=== PATIENT | female | born 1960 | race Caucasian/White ===

== ENCOUNTER → 2016-11-28 | Outpatient (CLI) | payer OTHER ==
--- NOTE | 2016-11-28 14:50 | EKG REPORT ---
SEVERITY:- NORMAL ECG - SINUS RHYTHM : Confirmed by: Alva Good 28-Nov-2016 14:49:42
== END ==
LOC: CCC 11:13
DX: R06.02 Shortness of breath (principal); R06.00 Dyspnea, unspecified
CPT/HCPCS: 93005; 93010

== ENCOUNTER → 2016-11-28 | Outpatient (CLI) | payer OTHER | LOC: RAD 11:42 | DX: R06.02 Shortness of breath (principal); R06.00 Dyspnea, unspecified | CPT/HCPCS: 71020 ==

== ENCOUNTER 2017-02-24 13:13 | Emergency (ER) | payer OTHER ==
--- NOTE | 2017-02-24 13:19 | ER Document Report ---
ED Medical Screen (RME) - General Stated Complaint: TINGLING/NUMBNESS LEFT SIDE Notes: This 56-year-old female patient comes emergency room complaining of left-sided weakness with visual disturbance. She reports the symptoms were present when she woke up this morning about 7 AM. It is now over 6 hours since onset of symptoms. I have greeted and performed a rapid initial assessment of this patient. A comprehensive ED assessment and evaluation of the patient, analysis of test results and completion of the medical decision making process will be conducted by additional ED providers. TRAVEL OUTSIDE OF THE [place] IN LAST 30 DAYS: No - Related Data Allergies/Adverse Reactions: Penicillins Allergy (Severe, Verified 12/26/15 22:11) Anaphylactic shock sulfamethoxazole [From Septra] Allergy (Severe, Verified 12/26/15 22:11) Diarrhea trimethoprim [From Septra] Allergy (Severe, Verified 12/26/15 22:11) Diarrhea doxycycline [Doxycycline] Allergy (Intermediate, Verified 12/26/15 22:11) Generalized Itching levofloxacin [From Levaquin] Allergy (Intermediate, Verified 12/26/15 22:11) N&V Past Medical History - Past Medical History Cardiac Medical History: Reports: Hx Hypertension Neurological Medical History: Reports: Hx Seizures Endocrine Medical History: Reports: Hx Diabetes Mellitus Type 2 GI Medical History: Reports: Hx Gastroesophageal Reflux Disease Musculoskeltal Medical History: Reports Hx Arthritis - Lt knee Psychiatric Medical History: Reports: Hx Anxiety, Hx Attention Deficit Hyperactivity Disorder, Hx Depression Past Surgical History: Reports: Hx Section, Hx Inguinal Hernia, Hx Neurologic Surgery - Vagal nerve stimulator, Hx Tubal Ligation - Immunizations Immunizations up to date: No Hx Diphtheria, Pertussis, Tetanus Vaccination: No
[2017-02-24] MEDS ORDERED: CARISOPRODOL 350 MG TABLET PO ONE (14:40)
--- NOTE | 2017-02-24 14:41 | ER Document Report ---
ED Neuro Symptoms/Deficit - General Mode of Arrival: Ambulatory Information source: Patient TRAVEL OUTSIDE OF THE [place] IN LAST 30 DAYS: No - HPI Patient complains to provider of: Other - see above Onset: This morning Awoke with symptoms: No Similar symptoms previously: No <AJITH SOARES - Last Filed: 02/24/17 15:39> <KIMBERLYHAKEEM CHELLY - Last Filed: 02/24/17 22:16> - General Chief Complaint: Numbness of Face Stated Complaint: TINGLING/NUMBNESS LEFT SIDE Notes: Patient is a 56-year-old female that presents to the emergency department today with complaints of left-sided tingling, numbness, and aching. She states her above-mentioned symptoms began around 1930 this morning. Patient states that the tingling sensation is felt on the left side of her face and shoulder, the aching is in her left arm and hand, and her left leg and foot feel numb. 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 Patient states after her symptoms began she felt mildly lightheaded and anxious. (AJITH SOARES) - Related Data Allergies/Adverse Reactions: Penicillins Allergy (Severe, Verified 12/26/15 22:11) Anaphylactic shock sulfamethoxazole [From Septra] Allergy (Severe, Verified 12/26/15 22:11) Diarrhea trimethoprim [From Septra] Allergy (Severe, Verified 12/26/15 22:11) Diarrhea doxycycline [Doxycycline] Allergy (Intermediate, Verified 12/26/15 22:11) Generalized Itching levofloxacin [From Levaquin] Allergy (Intermediate, Verified 12/26/15 22:11) N&V Past Medical History - General Information source: Patient, [facility] Records - Social History Smoking Status: Never Smoker Cigarette use (# per day): No Frequency of alcohol use: None Drug Abuse: None Lives with: Spouse/Significant other Family History: Arthritis, CAD, CVA, DM, Hyperlipidemia, Hypertension, Malignancy, Thyroid Disfunction Patient has suicidal ideation: No Patient has homicidal ideation: No - Past Medical History Cardiac Medical History: Reports: Hx Hypertension Neurological Medical History: Reports: Hx Seizures Endocrine Medical History: Reports: Hx Diabetes Mellitus Type 2 GI Medical History: Reports: Hx Gastroesophageal Reflux Disease Musculoskeltal Medical History: Reports Hx Arthritis - Lt knee Psychiatric Medical History: Reports: Hx Anxiety, Hx Attention Deficit Hyperactivity Disorder, Hx Depression Past Surgical History: Reports: Hx Abdominal Surgery - HERNIA, Hx Section, Hx Inguinal Hernia, Hx Neurologic Surgery - Vagal nerve stimulator, Hx Tubal Ligation - Immunizations Immunizations up to date: No Hx Diphtheria, Pertussis, Tetanus Vaccination: No <AJITH SOARES - Last Filed: 02/24/17 15:39> Review of Systems - Review of Systems Constitutional: No symptoms reported EENT: No symptoms reported Cardiovascular: See HPI, Lightheaded Respiratory: No symptoms reported Gastrointestinal: No symptoms reported Genitourinary: No symptoms reported Female Genitourinary: No symptoms reported Musculoskeletal: See HPI, Back pain - upper back Skin: No symptoms reported Hematologic/Lymphatic: No symptoms reported Neurological/Psychological: See HPI, Other - Left sided tingling, numbness, and aching -: Yes All other systems reviewed and negative <AJITH SOARES - Last Filed: 02/24/17 15:39> Physical Exam <AJITH SOARES - Last Filed: 02/24/17 15:39> <HAKEEM HARRIS - Last Filed: 02/24/17 22:16> - Vital signs Vitals: Temp Pulse Resp BP Pulse Ox 98.3 F 77 20 185/93 H 99 02/24/17 13:17 02/24/17 13:17 02/24/17 13:17 02/24/17 13:17 02/24/17 13:17 - Notes Notes: Physical Exam: General: Alert, appears well. HEENT: Normocephalic. Atraumatic. PERRL. Extraocular movements intact. Oropharynx clear. Neck: Supple. Non-tender. Respiratory: No respiratory distress. Clear and equal breath sounds bilaterally. Cardiovascular: Regular rate and rhythm. Abdominal: Normal Inspection. Non-tender. No distension. Normal Bowel Sounds. Back: No deformity or step off. Tenderness with palpation over the left medial scapula. Left axilla tenderness with palpation which reproduces pain down the left arm. Extremities: Moves all four extremities. Upper extremities: Normal inspection. Normal ROM. Normal temperature. Full strength Lower extremities: Non-tender. No edema. Normal color. Normal ROM. Normal temperature. Full strength. Pain with movement of LLE. Neurological: Cranial nerves II-XII grossly intact bilaterally. Strength 5/5 throughout. Sensation intact to light touch. Normal cognition. AAOx4. Normal speech. Psychological: Normal affect. Normal Mood. Skin: Warm. Dry. Normal color. (AJITH SOARES) Course <AJITH SOARES - Last Filed: 02/24/17 15:39> - Laboratory Result Diagrams: 02/24/17 15:56 02/24/17 15:56 - Diagnostic Test Radiology reviewed: Reports reviewed - EKG Interpretation by Hi EKG shows normal: Sinus rhythm Rate: Normal Rhythm: NSR <HAKEEM HARRIS - Last Filed: 02/24/17 22:16> - Re-evaluation Re-evalutation: 02/24/17 17:55 Patient appears well. Head CT within normal limits. Blood work within normal limits. Palpation of the patient's ankle and upper back exacerbate her arm pain and symptoms. Feels better after soma and pain medication. Will be discharged home with pain medication and is to follow-up with her doctor. Patient is completely neurovascularly intact. Return if any worsening or concerning symptoms. Agrees plan. (HAKEEM HARRIS) - Vital Signs Vital signs: Temp Pulse Resp BP Pulse Ox 98.3 F 76 17 126/86 H 95 02/24/17 13:17 02/24/17 16:16 02/24/17 19:28 02/24/17 17:31 02/24/17 17:31 - Laboratory Laboratory results interpreted by me: 02/24/17 15:56 Calcium 10.5 H Discharge <AJITH SOARES - Last Filed: 02/24/17 15:39> <HAKEEM HARRIS - Last Filed: 02/24/17 22:16> - Discharge Clinical Impression: Peripheral nerve entrapment syndrome Injury of upper back Qualifiers: Encounter type: initial encounter Qualified Code(s): S29.9XXA - Unspecified injury of thorax, initial encounter Condition: Stable Disposition: HOME, SELF-CARE Instructions: Upper Back Strain ([facility]), Carpal Tunnel Syndrome ([facility]) Prescriptions: Oxycodone HCl/Acetaminophen [Percocet 5-325 mg Tablet] 1 tab PO Q4H PRN #20 tablet PRN Reason: Referrals: [facility] [Primary Care Provider] - Follow up as needed Scribe Attestation: 02/24/17 22:16 I personally performed the services described in the documentation, reviewed and edited the documentation which was dictated to the scribe in my presence, and it accurately records my words and actions. (HAKEEM HARRIS) Scribe Documentation - Scribe Written by Scribe:: Malachi Tanner, 02/24/2017 1505 acting as scribe for :: Cherrie <AJITH SOARES - Last Filed: 02/24/17 15:39>
[2017-02-24 15:54] LABS: APPEARANCE,URINE CLEAR; BILIRUBIN,URINE NEGATIVE (NEGATIVE); GLUCOSE, URINE NEGATIVE (NEGATIVE); KETONES,URINE NEGATIVE (NEGATIVE); LEUKOCYTE ESTERASE,URINE NEGATIVE (NEGATIVE); NITRITE,URINE NEGATIVE (NEGATIVE); PROTEIN,URINE NEGATIVE (NEGATIVE); URINE SPECIFIC GRAVITY 1.005; UROBILINOGEN,URINE NEGATIVE mg/dL (<2.0)
[2017-02-24 16:10] LABS: ABSOLUTE BASOPHILS # (AUTO) 0.1 10^3/uL (0.0-0.2); ABSOLUTE EOSINOPHILS # (AUTO) 0.2 10^3/uL (0.0-0.6); ABSOLUTE LYMPHOCYTES (AUTO) 2.8 10^3/uL (0.5-4.7); ABSOLUTE MONOCYTES (AUTO) 0.9 10^3/uL (0.1-1.4); ABSOLUTE NEUT (AUTO) 5.9 10^3/uL (1.7-8.2); BASOPHILS % (AUTO) 0.7 % (0-2); HEMATOCRIT 42.6 % (36.0-47.0); HEMOGLOBIN 14.2 g/dL (12.0-15.5); LYMPHOCYTES % (AUTO) 28.7 % (13-45); MEAN CORPUSCULAR HEMOGLOBIN 29.6 pg (27.0-33.4); MEAN CORPUSCULAR HGB CONC 33.4 g/dL (32.0-36.0); MEAN CORPUSCULAR VOLUME 89 fl (80-97); MONOCYTES % (AUTO) 9.1 % (3-13); RED BLOOD COUNT 4.81 10^6/uL (3.72-5.28); RED CELL DISTRIBUTION WIDTH 13.4 % (11.5-14.0); SEGMENTED NEUTROPHILS % (AUTO) 59.5 % (42-78); WHITE BLOOD COUNT 9.9 10^3/uL (4.0-10.5)
[2017-02-24 16:31] LABS: ALANINE AMINOTRANSFERASE 37 U/L (9-52); ALBUMIN 4.8 g/dL (3.5-5.0); ALKALINE PHOSPHATASE 70 U/L (38-126); ANION GAP 15 (5-19); ASPARTATE AMINO TRANSFERASE 20 U/L (14-36); BILIRUBIN,DIRECT 0.1 mg/dL (0.0-0.4); BILIRUBIN,TOTAL 0.3 mg/dL (0.2-1.3); BLOOD UREA NITROGEN 10 mg/dL (7-20); CALCIUM 10.5 mg/dL (8.4-10.2); CARBON DIOXIDE 24 mmol/L (22-30); CHLORIDE 103 mmol/L (98-107); CREATINE KINASE 122 U/L (30-135); CREATININE RESULT 0.61 mg/dL (0.52-1.25); GLUCOSE 99 mg/dL (75-110); POTASSIUM 4.7 mmol/L (3.6-5.0); SODIUM 142.4 mmol/L (137-145); TOTAL PROTEIN 7.8 g/dL (6.3-8.2)
[2017-02-24] MEDS ORDERED: OXYCODONE-ACETAMINOPHEN 5-325 MG TABLET PO ONE (16:32)
[2017-02-24 16:43] LABS: CREATINE KINASE MB 0.91 ng/mL (<4.55)
[2017-02-24 16:47] LABS: TROPONIN I < 0.012 ng/mL
--- NOTE | 2017-02-24 17:24 | EKG REPORT ---
SEVERITY:- ABNORMAL ECG - SINUS RHYTHM PROBABLE LVH WITH SECONDARY REPOL ABNRM : Confirmed by: Zane Rodriguez MD 24-Feb-2017 17:23:27
[2017-02-24 18:57] VITALS: BP 126/86
== END 2017-02-24 19:53 | disposition home or self-care (01) ==
LOC: ER 13:13
DX: G58.8 Other specified mononeuropathies (principal); S29.9XXA Unspecified injury of thorax, initial encounter; R20.0 Anesthesia of skin; X58.XXXA Exposure to other specified factors, initial encounter; E11.9 Type 2 diabetes mellitus without complications; I10 Essential (primary) hypertension; K21.9 Gastro-esophageal reflux disease without esophagitis; Z88.0 Allergy status to penicillin; Z88.3 Allergy status to other anti-infective agents; Z98.51 Tubal ligation status
CPT/HCPCS: 93005; 99284; 36415; 82553; 82550; 84443; 85025; 80053; 81001; 84484; 70450; 93010; J3490

== ENCOUNTER → 2017-03-11 | Outpatient (CLI) | payer OTHER ==
[2017-03-11 10:09] LABS: CHOLESTEROL 206.11 mg/dL (0-200); Direct HDL 49 mg/dL (>40); TRIGLYCERIDES 167 mg/dL (<150)
[2017-03-11 10:20] LABS: DIRECT LDL 133 mg/dL (<100)
[2017-03-11 10:38] LABS: VLDL CHOLESTEROL 33.4 mg/dL (10-31)
== END ==
LOC: CCC 08:57
DX: Z00.00 Encounter for general adult medical examination without abnormal findings (principal); E11.9 Type 2 diabetes mellitus without complications; I10 Essential (primary) hypertension
CPT/HCPCS: 36415; 80061; 83036

== ENCOUNTER 2017-06-15 10:21 | Emergency (ER) | payer OTHER ==
--- NOTE | 2017-06-15 10:59 | ER Document Report ---
ED Medical Screen (RME) - General Chief Complaint: Chest Pain Stated Complaint: ABDOMINAL PAIN Time Seen by Provider: 06/15/17 10:46 Notes: Patient states she had approximately 3 days of epigastric pain that radiates to her chest. It does make her feel short of breath. She states for the last 3 months she has had trouble with excessive gas and belching and has been being [facility] for [facility]. She states she has had vomiting and nausea the last 3 days as well. TRAVEL OUTSIDE OF THE [place] IN LAST 30 DAYS: No - Related Data Allergies/Adverse Reactions: Penicillins Allergy (Severe, Verified 06/15/17 10:32) Anaphylactic shock sulfamethoxazole [From Septra] Allergy (Severe, Verified 06/15/17 10:32) Diarrhea trimethoprim [From Septra] Allergy (Severe, Verified 06/15/17 10:32) Diarrhea doxycycline [Doxycycline] Allergy (Intermediate, Verified 06/15/17 10:32) Generalized Itching levofloxacin [From Levaquin] Allergy (Intermediate, Verified 06/15/17 10:32) N&V Past Medical History - Social History Chew tobacco use (# tins/day): No Frequency of alcohol use: None Drug Abuse: None - Past Medical History Cardiac Medical History: Reports: Hx Hypertension Neurological Medical History: Reports: Hx Seizures Endocrine Medical History: Reports: Hx Diabetes Mellitus Type 2 Renal/ Medical History: Denies: Hx Peritoneal Dialysis GI Medical History: Reports: Hx Gastroesophageal Reflux Disease Musculoskeltal Medical History: Reports Hx Arthritis - Lt knee Psychiatric Medical History: Reports: Hx Anxiety, Hx Attention Deficit Hyperactivity Disorder, Hx Depression Past Surgical History: Reports: Hx Abdominal Surgery - HERNIA, Hx Section, Hx Inguinal Hernia, Hx Neurologic Surgery - Vagal nerve stimulator, Hx Tubal Ligation - Immunizations Immunizations up to date: No Hx Diphtheria, Pertussis, Tetanus Vaccination: No Physical Exam - Vital signs Vitals: Temp Pulse Resp BP Pulse Ox 98.5 F 90 16 141/88 H 96 06/15/17 10:32 06/15/17 10:32 06/15/17 10:32 06/15/17 10:32 06/15/17 10:32 Course - Vital Signs Vital signs: Temp Pulse Resp BP Pulse Ox 98.5 F 90 16 141/88 H 96 06/15/17 10:32 06/15/17 10:32 06/15/17 10:32 06/15/17 10:32 06/15/17 10:32
[2017-06-15] MEDS ORDERED: MAG HYDROX/AL HYDROX/SIMETH SUSP 30 ML UDCUP PO ONE (11:08)
[2017-06-15] MEDS ORDERED: LIDOCAINE 2% VISCOUS SOLN 20 ML UDCUP PO ONE (11:08)
[2017-06-15] MEDS ORDERED: METOCLOPRAMIDE HCL ORAL SOLN 10 MG/10 ML UDCUP PO ONE (11:08)
[2017-06-15 11:17] LABS: ABSOLUTE EOSINOPHILS # (AUTO) 0.1 10^3/uL (0.0-0.6); ABSOLUTE LYMPHOCYTES (AUTO) 2.6 10^3/uL (0.5-4.7); ABSOLUTE MONOCYTES (AUTO) 0.7 10^3/uL (0.1-1.4); ABSOLUTE NEUT (AUTO) 7.6 10^3/uL (1.7-8.2); BASOPHILS % (AUTO) 0.4 % (0-2); EOSINOPHILS % (AUTO) 0.9 % (0-6); HEMATOCRIT 44.3 % (36.0-47.0); HEMOGLOBIN 15.1 g/dL (12.0-15.5); LYMPHOCYTES % (AUTO) 23.7 % (13-45); MEAN CORPUSCULAR HEMOGLOBIN 30.6 pg (27.0-33.4); MEAN CORPUSCULAR HGB CONC 34.2 g/dL (32.0-36.0); MEAN CORPUSCULAR VOLUME 89 fl (80-97); MONOCYTES % (AUTO) 6.7 % (3-13); RED BLOOD COUNT 4.95 10^6/uL (3.72-5.28); SEGMENTED NEUTROPHILS % (AUTO) 68.3 % (42-78); WHITE BLOOD COUNT 11.1 10^3/uL (4.0-10.5)
[2017-06-15 11:22] LABS: APPEARANCE,URINE CLEAR; BILIRUBIN,URINE NEGATIVE (NEGATIVE); GLUCOSE, URINE NEGATIVE (NEGATIVE); KETONES,URINE NEGATIVE (NEGATIVE); LEUKOCYTE ESTERASE,URINE NEGATIVE (NEGATIVE); NITRITE,URINE NEGATIVE (NEGATIVE); PROTEIN,URINE NEGATIVE (NEGATIVE); URINE SPECIFIC GRAVITY 1.014; UROBILINOGEN,URINE NEGATIVE mg/dL (<2.0)
[2017-06-15 11:30] LABS: ALANINE AMINOTRANSFERASE 38 U/L (9-52); ALBUMIN 5.2 g/dL (3.5-5.0); ALKALINE PHOSPHATASE 75 U/L (38-126); ANION GAP 17 (5-19); ASPARTATE AMINO TRANSFERASE 20 U/L (14-36); BILIRUBIN,DIRECT 0.3 mg/dL (0.0-0.4); BILIRUBIN,TOTAL 0.5 mg/dL (0.2-1.3); BLOOD UREA NITROGEN 7 mg/dL (7-20); CALCIUM 10.3 mg/dL (8.4-10.2); CARBON DIOXIDE 22 mmol/L (22-30); CHLORIDE 99 mmol/L (98-107); GLUCOSE 153 mg/dL (75-110); LIPASE 65.1 U/L (23-300); POTASSIUM 4.9 mmol/L (3.6-5.0); SODIUM 138.3 mmol/L (137-145); TOTAL PROTEIN 8.6 g/dL (6.3-8.2)
[2017-06-15] MEDS ORDERED: LORAZEPAM INJ 2 MG/1 ML VIAL IV ONE (11:42)
[2017-06-15] MEDS ORDERED: FAMOTIDINE INJ/PF 20 MG/2 ML SDV IV ONE (11:42)
[2017-06-15] MEDS ORDERED: ONDANSETRON HCL INJ/PF 4 MG/2 ML SDV IV ONE (11:42)
[2017-06-15] MEDS ORDERED: NORMAL SALINE 1000 ML 1,000 ML IV ONE (11:42)
--- NOTE | 2017-06-15 11:43 | ER Document Report ---
ED General - General Chief Complaint: Chest Pain Stated Complaint: CHEST PAIN Time Seen by Provider: 06/15/17 10:46 Mode of Arrival: Ambulatory Information source: Patient Notes: Patient is a 57-year-old female who presents to the ER today for epigastric pain radiating up into her chest, causing it hard to eat or drink anything. She admits to nausea and "dry heaving." She admits that for the past couple of months the [facility] has been trying to figure out why she has been having the same type of pain, she cannot get an endoscopy because she does not have insurance and cannot "get anyone to do it in the hospital." She only takes Nexium for acid reflux. They have not tried her on any other medications. she admits to some shortness of breath and 4 episodes of diarrhea yesterday. She denies that the pain radiates anywhere else or go to the back. She denies any history of heart attack or stroke. She admits to history of anxiety. TRAVEL OUTSIDE OF THE [place] IN LAST 30 DAYS: No - Related Data Allergies/Adverse Reactions: Penicillins Allergy (Severe, Verified 06/15/17 10:32) Anaphylactic shock sulfamethoxazole [From Septra] Allergy (Severe, Verified 06/15/17 10:32) Diarrhea trimethoprim [From Septra] Allergy (Severe, Verified 06/15/17 10:32) Diarrhea doxycycline [Doxycycline] Allergy (Intermediate, Verified 06/15/17 10:32) Generalized Itching levofloxacin [From Levaquin] Allergy (Intermediate, Verified 06/15/17 10:32) N&V Past Medical History - General Information source: Patient - Social History Smoking Status: Never Smoker Chew tobacco use (# tins/day): No Frequency of alcohol use: None Drug Abuse: None Family History: Arthritis, CAD, CVA, DM, Hyperlipidemia, Hypertension, Malignancy, Thyroid Disfunction - Past Medical History Cardiac Medical History: Reports: Hx Hypertension Neurological Medical History: Reports: Hx Seizures Endocrine Medical History: Reports: Hx Diabetes Mellitus Type 2 Renal/ Medical History: Denies: Hx Peritoneal Dialysis GI Medical History: Reports: Hx Gastroesophageal Reflux Disease Musculoskeltal Medical History: Reports Hx Arthritis - Lt knee Psychiatric Medical History: Reports: Hx Anxiety, Hx Attention Deficit Hyperactivity Disorder, Hx Depression Past Surgical History: Reports: Hx Abdominal Surgery - HERNIA, Hx Section, Hx Inguinal Hernia, Hx Neurologic Surgery - Vagal nerve stimulator, Hx Tubal Ligation - Immunizations Immunizations up to date: No Hx Diphtheria, Pertussis, Tetanus Vaccination: No Review of Systems - Review of Systems Constitutional: No symptoms reported EENT: No symptoms reported Cardiovascular: No symptoms reported Respiratory: No symptoms reported Gastrointestinal: See HPI Genitourinary: No symptoms reported Female Genitourinary: No symptoms reported Musculoskeletal: No symptoms reported Skin: No symptoms reported Hematologic/Lymphatic: No symptoms reported Neurological/Psychological: See HPI Physical Exam - Vital signs Vitals: Temp Pulse Resp BP Pulse Ox 98.5 F 90 16 141/88 H 96 06/15/17 10:32 06/15/17 10:32 06/15/17 10:32 06/15/17 10:32 06/15/17 10:32 - Notes Notes: PHYSICAL EXAMINATION: GENERAL: Anxious appearing, but in no acute distress. HEAD: Atraumatic, normocephalic. EYES: Pupils equal round and reactive to light, extraocular movements intact, sclera anicteric, conjunctiva are normal. ENT: ear canals without erythema or foreign body, TMs pearly vargas with good bony landmarks, nares patent, oropharynx clear without exudates. Moist mucous membranes. NECK: Normal range of motion, supple without lymphadenopathy LUNGS: CTAB and equal. No wheezes rales or rhonchi. HEART: Regular rate and rhythm without murmurs ABDOMEN: Soft, moderate epigastric, mild right upper quadrant and left upper quadrant tenderness. No guarding, no rebound BACK: no vertebral tenderness, normal ROM GI/: no CVA tenderness EXTREMITIES: Normal range of motion, no pitting edema. No cyanosis. NEUROLOGICAL: Cranial nerves grossly intact. Normal sensory/motor exams. PSYCH: Anxious, tearful SKIN: Warm, Dry, normal turgor, no rashes or lesions noted Course - Re-evaluation Re-evalutation: 06/15/17 14:08 Patient's labs are unremarkable today, right upper quadrant ultrasound revealed gallstones but no cholecystitis, patient was very anxious and spit up GI cocktail before even attempting to follow it I would not try it again. I did get her to agree to Carafate after I gave her 1mg of ativan to calm her down. sister states that she has a history of being "very wound up." Troponin is negative today. EKG reveals normal sinus rhythm with a rate of 85 bpm no evidence of ischemia. - Vital Signs Vital signs: Temp Pulse Resp BP Pulse Ox 98.5 F 90 16 141/88 H 96 06/15/17 10:32 06/15/17 10:32 06/15/17 10:32 06/15/17 10:32 06/15/17 10:32 - Laboratory Result Diagrams: 06/15/17 10:55 06/15/17 10:55 Laboratory results interpreted by me: 06/15/17 06/15/17 10:55 10:55 WBC 11.1 H Glucose 153 H Calcium 10.3 H Total Protein 8.6 H Albumin 5.2 H Discharge - Discharge Clinical Impression: Epigastric abdominal pain, Anxiety Condition: Stable Disposition: HOME, SELF-CARE Instructions: Reflux Disease (GERD) ([facility]), Prilosec (Acid Pump Inhibitor) ([facility]) Additional Instructions: Return immediately for any new or worsening symptoms. Follow up with primary care provider, call tomorrow to make followup appointment. Prescriptions: Omeprazole Magnesium [Prilosec Otc] 20 mg PO BID #40 tablet. Sucralfate [Carafate 1 gm Tablet] 1 gm PO ACHS #40 tablet
--- NOTE | 2017-06-15 13:07 | RADIOLOGY REPORT (SQ) ---
EXAM DESCRIPTION: CHEST SINGLE VIEW COMPLETED DATE/TIME: 06/15/2017 12:48 pm REASON FOR STUDY: epigastric pain, feeling something stuck in throat COMPARISON: 11/28/2016 EXAM PARAMETERS: NUMBER OF VIEWS: One view. TECHNIQUE: Single frontal radiographic view of the chest acquired. RADIATION DOSE: NA LIMITATIONS: None. FINDINGS: LUNGS AND PLEURA: No opacities, masses or pneumothorax. No pleural effusion. MEDIASTINUM AND HILAR STRUCTURES: No masses. Contour normal. HEART AND VASCULAR STRUCTURES: Heart normal in size. Normal vasculature. BONES: No acute findings. HARDWARE: Vagal nerve stimulator projected over the left upper chest. OTHER: No other significant finding. IMPRESSION: NO ACUTE RADIOGRAPHIC FINDING IN THE CHEST. TECHNICAL DOCUMENTATION: JOB ID: [id number]
--- NOTE | 2017-06-15 13:08 | RADIOLOGY REPORT (SQ) ---
EXAM DESCRIPTION: SOFT TISSUE NECK COMPLETED DATE/TIME: 06/15/2017 12:48 pm REASON FOR STUDY: epigastric pain, feeling something stuck in throat COMPARISON: None. NUMBER OF VIEWS: Two views. TECHNIQUE: AP and lateral radiographic image of the soft tissues of the neck. LIMITATIONS: None. FINDINGS: EPIGLOTTIS: Normal. Contour normal. Aryepiglottic folds normal. PREVERTEBRAL SOFT TISSUES: Normal. No soft tissue swelling. SUBGLOTTIC AREA: Normal. No narrowing. RETROPHARYNGEAL SPACE: Normal. No soft tissue masses. BONY STRUCTURES: No significant findings. LUNG APICES: Normal. OTHER: No radiopaque foreign body. No other significant finding. IMPRESSION: NEGATIVE STUDY OF THE SOFT TISSUES OF THE NECK. TECHNICAL DOCUMENTATION: JOB ID: [id number] [employer]- All Rights Reserved
--- NOTE | 2017-06-15 13:17 | RADIOLOGY REPORT (SQ) ---
EXAM DESCRIPTION: U/S ABDOMEN LIMITED W/O DOP COMPLETED DATE/TIME: 06/15/2017 1:09 pm REASON FOR STUDY: epigastric pain, feeling something stuck in throat COMPARISON: None. TECHNIQUE: Dynamic and static grayscale images acquired of the liver and recorded on PACS. Addition al selected color Doppler and spectral images recorded. Selected velocities recorded. LIMITATIONS: None. FINDINGS: LIVER: Coarse echoes of prominent liver concerning for fatty change. No focal mass or asc ites. LIVER VASCULATURE: The hepatic veins and portal veins are patent with normal directional flow. The I VC is patent. GALLBLADDER: Small stones are seen in the base the gallbladder. No pericholecystic fluid. Patient i s reported to be tender in the region of the gallbladder. INTRAHEPATIC DUCTS AND COMMON DUCT: No dilated intrahepatic ducts. CBD diameter normal. ASCITES: None. OTHER: No other significant finding. IMPRESSION: Cholelithiasis. Coarse echoes of prominent liver concerning for fatty change. TECHNICAL DOCUMENTATION: JOB ID: [id number]
--- NOTE | 2017-06-15 13:35 | EKG REPORT ---
SEVERITY:- ABNORMAL ECG - SINUS RHYTHM NONSPECIFIC T ABNORMALITIES, LATERAL LEADS : Confirmed by: Zane Rodriguez MD 15-Jun-2017 13:34:33
[2017-06-15] MEDS ORDERED: SUCRALFATE 1 GM TABLET PO ONE (13:50)
[2017-06-15 14:19] VITALS: BP 122/68
== END 2017-06-15 14:19 | disposition home or self-care (01) ==
LOC: ER 10:21
DX: R10.13 Epigastric pain (principal); F41.9 Anxiety disorder, unspecified; R07.9 Chest pain, unspecified; R11.0 Nausea; R19.7 Diarrhea, unspecified
CPT/HCPCS: 93005; 99285; 96361; 96374; 96375; 36415; 83690; 85025; 80053; 81001; 84484; 71010; 70360; 76705; 93010; J3490; J2060; J2405; J7030; S0028

== ENCOUNTER → 2017-07-02 | Outpatient (CLI) | payer OTHER ==
--- NOTE | 2017-07-03 14:23 | RADIOLOGY REPORT (SQ) ---
EXAM DESCRIPTION: FOOT RIGHT COMPLETE COMPLETED DATE/TIME: 07/02/2017 3:50 pm REASON FOR STUDY: R FOOT PAIN COMPARISON: None. NUMBER OF VIEWS: Three views. TECHNIQUE: AP, lateral and oblique radiographic images acquired of the right foot. LIMITATIONS: None. FINDINGS: MINERALIZATION: Osteopenic BONES: 4th toe middle phalanx acute avulsion fragments off the proximal base, at the PIP joint. Comminuted nondisplaced acute fracture 5th toe proximal phalanx at the interphalangeal joint. Old healed fracture 2nd toe proximal phalanx at the PIP joint with bony bridging callus. Metatarsal heads are intact. Small plantar calcaneal spur. Moderate-sized bony spur along the plantar aspect great toe proximal p halanx. JOINTS: No malalignment. SOFT TISSUES: 4th and 5th toe soft tissue swelling. No foreign body. OTHER: No other significant finding. IMPRESSION: Nondisplaced acute fractures of the 4th toe middle phalanx, 5th toe proximal phalanx. TECHNICAL DOCUMENTATION: JOB ID: [id number] [employer]- All Rights Reserved
== END ==
LOC: RAD 15:35
DX: M79.671 Pain in right foot (principal)

== ENCOUNTER 2017-07-09 13:54 | Observation (INO) | payer OTHER ==
[2017-07-09] MEDS ORDERED: MORPHINE SULFATE 10 MG/ML INJ IV ONE (14:29)
--- NOTE | 2017-07-09 14:31 | ER Document Report ---
ED Medical Screen (RME) - General Chief Complaint: Abdominal Pain Stated Complaint: ABDOMINAL PAIN Time Seen by Provider: 07/09/17 14:23 Mode of Arrival: Ambulatory Information source: Patient Notes: 57-year-old female presents with complaints of abdominal pain intermittently over the past 2-3 weeks. Patient notes she was seen here noted to have gallstones. Pain has been ongoing since this morning in the right upper quadrant and epigastric region seen by primary care physician sent in for evaluation I have greeted and performed a rapid initial assessment of this patient. A comprehensive ED assessment and evaluation of the patient, analysis of test results and completion of the medical decision making process will be conducted by additional ED providers. PHYSICAL EXAMINATION: GENERAL: Well-appearing, well-nourished and inmoderate discomfort HEAD: Atraumatic, normocephalic. EYES: Pupils equal round extraocular movements intact, conjunctiva are normal. ENT: Nares patent NECK: Normal range of motion LUNGS: No respiratory distress Musculoskeletal: Normal range of motion NEUROLOGICAL: Normal speech, normal gait. PSYCH: Normal mood, normal affect. SKIN: Warm, Dry, normal turgor, no rashes or lesions noted. TRAVEL OUTSIDE OF THE [place] IN LAST 30 DAYS: No - Related Data Allergies/Adverse Reactions: Penicillins Allergy (Severe, Verified 07/09/17 14:01) Anaphylactic shock sulfamethoxazole [From Septra] Allergy (Severe, Verified 07/09/17 14:01) Diarrhea trimethoprim [From Septra] Allergy (Severe, Verified 07/09/17 14:01) Diarrhea doxycycline [Doxycycline] Allergy (Intermediate, Verified 07/09/17 14:01) Generalized Itching levofloxacin [From Levaquin] Allergy (Intermediate, Verified 07/09/17 14:01) N&V Past Medical History - Past Medical History Cardiac Medical History: Reports: Hx Hypertension Neurological Medical History: Reports: Hx Seizures Endocrine Medical History: Reports: Hx Diabetes Mellitus Type 2 Renal/ Medical History: Denies: Hx Peritoneal Dialysis GI Medical History: Reports: Hx Gastroesophageal Reflux Disease Musculoskeltal Medical History: Reports Hx Arthritis - Lt knee Psychiatric Medical History: Reports: Hx Anxiety, Hx Attention Deficit Hyperactivity Disorder, Hx Depression Past Surgical History: Reports: Hx Abdominal Surgery - HERNIA, Hx Section, Hx Inguinal Hernia, Hx Neurologic Surgery - Vagal nerve stimulator, Hx Tubal Ligation - Immunizations Immunizations up to date: No Hx Diphtheria, Pertussis, Tetanus Vaccination: No Physical Exam - Vital signs Vitals: Temp Pulse Resp BP Pulse Ox 99.0 F 96 18 152/81 H 96 07/09/17 13:59 07/09/17 13:59 07/09/17 13:59 07/09/17 13:59 07/09/17 13:59 Course - Vital Signs Vital signs: Temp Pulse Resp BP Pulse Ox 99.0 F 96 18 152/81 H 96 07/09/17 13:59 07/09/17 13:59 07/09/17 13:59 07/09/17 13:59 07/09/17 13:59
[2017-07-09 15:24] LABS: ABSOLUTE BASOPHILS # (AUTO) 0.1 10^3/uL (0.0-0.2); ABSOLUTE EOSINOPHILS # (AUTO) 0.2 10^3/uL (0.0-0.6); ABSOLUTE LYMPHOCYTES (AUTO) 3.4 10^3/uL (0.5-4.7); ABSOLUTE MONOCYTES (AUTO) 0.8 10^3/uL (0.1-1.4); ABSOLUTE NEUT (AUTO) 8.5 10^3/uL (1.7-8.2); BASOPHILS % (AUTO) 0.6 % (0-2); EOSINOPHILS % (AUTO) 1.2 % (0-6); HEMATOCRIT 42.6 % (36.0-47.0); HEMOGLOBIN 14.2 g/dL (12.0-15.5); LYMPHOCYTES % (AUTO) 26.5 % (13-45); MEAN CORPUSCULAR HEMOGLOBIN 30.3 pg (27.0-33.4); MEAN CORPUSCULAR HGB CONC 33.3 g/dL (32.0-36.0); MEAN CORPUSCULAR VOLUME 91 fl (80-97); MONOCYTES % (AUTO) 6.3 % (3-13); RED BLOOD COUNT 4.69 10^6/uL (3.72-5.28); RED CELL DISTRIBUTION WIDTH 14.2 % (11.5-14.0); SEGMENTED NEUTROPHILS % (AUTO) 65.4 % (42-78)
[2017-07-09 15:44] LABS: ALANINE AMINOTRANSFERASE 38 U/L (9-52); ALBUMIN 5.3 g/dL (3.5-5.0); ALKALINE PHOSPHATASE 80 U/L (38-126); ANION GAP 19 (5-19); ASPARTATE AMINO TRANSFERASE 21 U/L (14-36); BILIRUBIN,TOTAL 0.6 mg/dL (0.2-1.3); CALCIUM 10.7 mg/dL (8.4-10.2); CARBON DIOXIDE 21 mmol/L (22-30); CHLORIDE 101 mmol/L (98-107); GLUCOSE 78 mg/dL (75-110); LIPASE 63.7 U/L (23-300); POTASSIUM 4.1 mmol/L (3.6-5.0); SODIUM 141.2 mmol/L (137-145); TOTAL PROTEIN 8.5 g/dL (6.3-8.2)
[2017-07-09 15:46] LABS: BLOOD UREA NITROGEN 6 mg/dL (7-20); CREATININE RESULT 0.67 mg/dL (0.52-1.25)
[2017-07-09] MEDS ORDERED: LORAZEPAM INJ 2 MG/1 ML VIAL IV ONE (15:50)
[2017-07-09 15:55] LABS: BILIRUBIN,DIRECT 0.4 mg/dL (0.0-0.4)
[2017-07-09] MEDS ORDERED: HYDROMORPHONE HCL INJ/PF 2 MG/ML AMPULE IV ONE ×2 (16:30→17:29)
--- NOTE | 2017-07-09 17:18 | RADIOLOGY REPORT (SQ) ---
EXAM DESCRIPTION: U/S ABDOMEN LIMITED W/O DOP COMPLETED DATE/TIME: 07/09/2017 4:27 pm REASON FOR STUDY: RUQ pain COMPARISON: Abdominal ultrasound 06/15/2017 TECHNIQUE: Dynamic and static grayscale images acquired of the abdomen and recorded on PACS. Additio nal selected color Doppler and spectral images recorded. LIMITATIONS: Midline bowel gas FINDINGS: PANCREAS: Echogenic, likely from diffuse fatty replacement LIVER: Diffuse increased echogenicity with coarse echotexture from diffuse hepatocellular disease or fatty infiltration. LIVER VASCULATURE: Normal directional flow of the main portal vein and hepatic veins. GALLBLADDER: There are gallstones, with gallbladder wall thickening, trace pericholecystic fluid and positive sonographic Arreaga sign worrisome for acute cholecystitis. ULTRASOUND-DETECTED ARREAGA'S SIGN: Positive INTRAHEPATIC DUCTS AND COMMON DUCT: CBD and intrahepatic ducts normal caliber. No filling defects. D istal most common duct not well seen. INFERIOR VENA CAVA: Normal flow. AORTA: No aneurysm. RIGHT KIDNEY: Normal size. Normal echogenicity. No solid or suspicious masses. No hydronephrosis. No calcifications. PERITONEAL AND RIGHT PLEURAL SPACE: No ascites or effusions. OTHER: No other significant findings. IMPRESSION: Stones and sludge in a contracted gallbladder with thick wall, trace pericholecystic flu id and positive sonographic Arreaga's sign. Findings are worrisome for acute cholecystitis. TECHNICAL DOCUMENTATION: JOB ID: [id number]- All Rights Reserved
[2017-07-09] MEDS ORDERED: NORMAL SALINE 1000 ML 1,000 ML IV ONE (17:29)
--- NOTE | 2017-07-09 17:32 | ER Document Report ---
ED GI/ - General Chief Complaint: Abdominal Pain Stated Complaint: ABDOMINAL PAIN Time Seen by Provider: 07/09/17 14:23 Mode of Arrival: Ambulatory Information source: Patient Notes: Patient is a 57-year-old female who presents to the ER today for right upper quadrant pain that she has had going on for some months now, has had evaluated multiple times. She admits to nausea and vomiting, diarrhea, denies fevers or chills. She saw her primary care provider today who told her to go to the emergency department. She has a history of gallstones. Still has her gallbladder. She is also under a lot of stress in life, about to declare bankruptcy, and she is very anxious and states that the person who manages her behavioral medications is about to take her off of Ativan. TRAVEL OUTSIDE OF THE [place] IN LAST 30 DAYS: No - Related Data Allergies/Adverse Reactions: Penicillins Allergy (Severe, Verified 07/09/17 14:01) Anaphylactic shock sulfamethoxazole [From Septra] Allergy (Severe, Verified 07/09/17 14:01) Diarrhea trimethoprim [From Septra] Allergy (Severe, Verified 07/09/17 14:01) Diarrhea doxycycline [Doxycycline] Allergy (Intermediate, Verified 07/09/17 14:01) Generalized Itching levofloxacin [From Levaquin] Allergy (Intermediate, Verified 07/09/17 14:01) N&V Past Medical History - General Information source: Patient - Social History Smoking Status: Unknown if Ever Smoked Family History: Arthritis, CAD, CVA, DM, Hyperlipidemia, Hypertension, Malignancy, Thyroid Disfunction - Past Medical History Cardiac Medical History: Reports: Hx Hypertension Neurological Medical History: Reports: Hx Seizures Endocrine Medical History: Reports: Hx Diabetes Mellitus Type 2 Renal/ Medical History: Denies: Hx Peritoneal Dialysis GI Medical History: Reports: Hx Gastroesophageal Reflux Disease Musculoskeltal Medical History: Reports Hx Arthritis - Lt knee Psychiatric Medical History: Reports: Hx Anxiety, Hx Attention Deficit Hyperactivity Disorder, Hx Depression Past Surgical History: Reports: Hx Abdominal Surgery - HERNIA, Hx Section, Hx Inguinal Hernia, Hx Neurologic Surgery - Vagal nerve stimulator, Hx Tubal Ligation - Immunizations Immunizations up to date: No Hx Diphtheria, Pertussis, Tetanus Vaccination: No Review of Systems - Review of Systems Constitutional: No symptoms reported EENT: No symptoms reported Cardiovascular: No symptoms reported Respiratory: No symptoms reported Gastrointestinal: See HPI Genitourinary: No symptoms reported Female Genitourinary: No symptoms reported Musculoskeletal: No symptoms reported Skin: No symptoms reported Hematologic/Lymphatic: No symptoms reported Neurological/Psychological: See HPI Physical Exam - Vital signs Vitals: Temp Pulse Resp BP Pulse Ox 99.0 F 96 18 152/81 H 96 07/09/17 13:59 07/09/17 13:59 07/09/17 13:59 07/09/17 13:59 07/09/17 13:59 - Notes Notes: PHYSICAL EXAMINATION: GENERAL: Incredibly anxious, tearful in no acute distress. HEAD: Atraumatic, normocephalic. EYES: Pupils equal round and reactive to light, extraocular movements intact, sclera anicteric, conjunctiva are normal. Really appreciate NECK: Normal range of motion, supple without lymphadenopathy LUNGS: CTAB and equal. No wheezes rales or rhonchi. HEART: Regular rate and rhythm without murmurs ABDOMEN: Soft, exquisite right upper quadrant and epigastric tenderness. No guarding, no rebound BACK: no vertebral tenderness, normal ROM GI/: no CVA tenderness EXTREMITIES: Normal range of motion, no pitting edema. No cyanosis. NEUROLOGICAL: Cranial nerves grossly intact. Normal sensory/motor exams. PSYCH: Anxious and tearful SKIN: Warm, Dry, normal turgor, no rashes or lesions noted Course - Re-evaluation Re-evalutation: 07/09/17 17:31 Patient has acute cholecystitis on right upper quadrant ultrasound, bilirubin is normal, liver enzymes are normal, white count mildly elevated, surgeon has been called and is coming to evaluate the patient at this time. 07/09/17 18:07 - Vital Signs Vital signs: Temp Pulse Resp BP Pulse Ox 99.0 F 96 18 152/81 H 96 07/09/17 13:59 07/09/17 13:59 07/09/17 13:59 07/09/17 13:59 07/09/17 13:59 - Laboratory Result Diagrams: 07/09/17 15:05 07/09/17 15:05 Laboratory results interpreted by me: 07/09/17 07/09/17 15:05 15:05 WBC 13.0 H RDW 14.2 H Absolute Neutrophils 8.5 H Carbon Dioxide 21 L BUN 6 L Calcium 10.7 H Total Protein 8.5 H Albumin 5.3 H Discharge - Discharge Clinical Impression: Acute cholecystitis Condition: Stable Disposition: ADMITTED INPATIENT Admitting Provider: Surgicalist Unit Admitted: OR Referrals: [facility] [Primary [facility]] - Follow up as needed
[2017-07-09 18:06] LABS: APPEARANCE,URINE SLIGHTLY-CLOUDY; BILIRUBIN,URINE NEGATIVE (NEGATIVE); GLUCOSE, URINE NEGATIVE (NEGATIVE); KETONES,URINE NEGATIVE (NEGATIVE); LEUKOCYTE ESTERASE,URINE NEGATIVE (NEGATIVE); NITRITE,URINE NEGATIVE (NEGATIVE); PROTEIN,URINE NEGATIVE (NEGATIVE); URINE SPECIFIC GRAVITY 1.004; UROBILINOGEN,URINE NEGATIVE mg/dL (<2.0)
[2017-07-09] MEDS ORDERED: DEXTROSE 50%-WATER 25 GM/50 ML DISP.SYRIN IV PRN ×2 (19:08)
[2017-07-09] MEDS ORDERED: DEXTROSE 40% GEL 15 GM TUBE PO PRN ×2 (19:08)
[2017-07-09] MEDS ORDERED: GLUCAGON,HUMAN RECOMB 1 MG INJ SUBCUT PRN (19:08)
--- NOTE | 2017-07-09 19:08 | PDOC H&P ---
History of Present Illness Admission Date/PCP: 07/09/17 18:10 [facility] Patient complains of: Right upper quadrant pain radiating to her back, which began this morning. History of Present Illness: DEVIN BECERRA is a 57 year old female who gives a history of right upper quadrant pain, postprandial bloating and gaseousness since December 2016. Patient admits to 2 attacks of biliary colic every month since then. Because of loss of her insurance, patient has not been able to obtain intervention and evaluation of her pain. Patient presents to the hospital with pain 8 out of 10 since this morning, but denies nausea, vomiting, fever, or chills. On evaluation in the ER, patient was found to have marked right upper quadrant tenderness with some guarding, but no rebound. Laboratory data was reviewed, and was essentially within normal limits. However ultrasound of her abdomen, revealed cholelithiasis, gallbladder wall thickening, and pericholecystic fluid , consistent with acute cholecystitis. Patient is in need of laparoscopic cholecystectomy. Surgical referral has been made. Past Medical History Cardiac Medical History: Reports: Hypertension Neurological Medical History: Reports: Seizures Endocrine Medical History: Reports: Diabetes Mellitus Type 2 GI Medical History: Reports: Gastroesophageal Reflux Disease Musculoskeltal Medical History: Reports: Arthritis - Lt knee Psychiatric Medical History: Reports: Attention Deficit Hyperactivity Disorder, Depression Hematology: Denies: Anemia Past Surgical History Past Surgical History: Reports: Section, Tubal Ligation Social History Smoking Status: Unknown if Ever Smoked Frequency of Alcohol Use: None Hx Recreational Drug Use: No Hx Prescription Drug Abuse: No Family History Family History: Arthritis, CAD, CVA, DM, Hyperlipidemia, Hypertension, Malignancy, Thyroid Disfunction Parental Family History Reviewed: No Children Family History Reviewed: No Sibling(s) Family History Reviewed.: No Medication/Allergy Home Medications: Atorvastatin Calcium [Lipitor 40 mg Tablet] 40 mg PO WSUPPER 07/09/17 Duloxetine HCl 30 mg PO QHS 07/09/17 Duloxetine HCl 60 mg PO QAM 07/09/17 Lorazepam [Ativan 0.5 mg Tablet] 0.5 mg PO Q8HP PRN 07/09/17 Metformin HCl [Glucophage] 1,000 mg PO Q12 07/09/17 Omeprazole 40 mg PO DAILY 07/09/17 Sucralfate [Carafate 1 gm Tablet] 1 gm PO ACHS 07/09/17 Trazodone HCl [Desyrel] 150 mg PO QHS 07/09/17 Zolpidem Tartrate 10 mg PO HSP PRN 07/09/17 Allergies/Adverse Reactions: Penicillins Allergy (Severe, Verified 07/09/17 14:01) Anaphylactic shock sulfamethoxazole [From Septra] Allergy (Severe, Verified 07/09/17 14:01) Diarrhea trimethoprim [From Septra] Allergy (Severe, Verified 07/09/17 14:01) Diarrhea doxycycline [Doxycycline] Allergy (Intermediate, Verified 07/09/17 14:01) Generalized Itching levofloxacin [From Levaquin] Allergy (Intermediate, Verified 07/09/17 14:01) N&V Physical Exam Vital Signs: Temp Pulse Resp BP Pulse Ox 98.7 F 78 20 142/81 H 98 07/09/17 18:39 07/09/17 18:39 07/09/17 18:39 07/09/17 18:39 07/09/17 18:39 General appearance: PRESENT: cooperative, mild distress, obese, well-developed, well-nourished Head exam: PRESENT: atraumatic, normocephalic Eye exam: PRESENT: conjunctiva pink, EOMI, PERRLA Mouth exam: PRESENT: moist, neck supple, tongue midline Neck exam: PRESENT: full ROM. ABSENT: JVD, lymphadenopathy, tenderness, thyromegaly, tracheal deviation Respiratory exam: PRESENT: clear to auscultation robert, symmetrical, unlabored Cardiovascular exam: PRESENT: RRR GI/Abdominal exam: PRESENT: guarding - Right upper quadrant, Arreaga's sign, normal bowel sounds, soft, tenderness. ABSENT: organolmegaly Musculoskeletal exam: PRESENT: ambulatory, full ROM, normal inspection. ABSENT : tenderness Neurological exam: PRESENT: alert, awake, oriented to person, oriented to place , oriented to time, oriented to situation Psychiatric exam: PRESENT: anxious Skin exam: PRESENT: normal color Results Impressions: Abdomen Ultrasound 07/09/17 14:29 IMPRESSION: Stones and sludge in a contracted gallbladder with thick wall, trace pericholecystic fluid and positive sonographic Arreaga's sign. Findings are worrisome for acute cholecystitis. Assessment & Plan - Diagnosis (2) Cholelithiasis Qualifiers: Cholelithiasis location: gallbladder Cholecystitis presence: with cholecystitis Cholecystitis acuity: acute and chronic Biliary obstruction: without biliary obstruction Qualified Code(s): K80.12 - Calculus of gallbladder with acute and chronic cholecystitis without obstruction - Plan Summary Plan Summary: Will be scheduled for laparoscopic cholecystectomy in the a.m.
[2017-07-09] MEDS ORDERED: LORAZEPAM 0.5 MG TABLET PO PRN (19:18)
[2017-07-09] MEDS: MORPHINE SULFATE 10 MG/ML INJ IV PRN (19:48)
[2017-07-09] MEDS: ONDANSETRON HCL INJ/PF 4 MG/2 ML SDV IV PRN (19:48)
[2017-07-09] MEDS ORDERED: ENOXAPARIN SODIUM INJ 40 MG/0.4 ML DISP.SYRIN SUBCUT ONE (20:00)
--- NOTE | 2017-07-09 21:22 | EKG REPORT ---
SEVERITY:- ABNORMAL ECG - SINUS RHYTHM LVH WITH SECONDARY REPOLARIZATION ABNORMALITY : Confirmed by: Alva Good 09-Jul-2017 21:21:17
[2017-07-09] MEDS: DULOXETINE HCL 30 MG CAPSULE.DR PO SCH (21:35)
[2017-07-09] MEDS: FAMOTIDINE INJ/PF 20 MG/2 ML SDV IV SCH (21:35)
[2017-07-09] MEDS: NORMAL SALINE 1000 ML 1,000 ML IV PRN (21:36)
[2017-07-09] MEDS ORDERED: CEFTRIAXONE 2 GM/D5W RTU 2 GM/50 ML RTUPB IV SCH (23:45)
[2017-07-10] MEDS ORDERED: CEFTRIAXONE 2 GM/D5W RTU 2 GM/50 ML RTUPB IV ONE (01:00)
[2017-07-10] MEDS ORDERED: CLINDAMYCIN 600 MG/D5W RTU 600 MG/50 ML RTUPB IV ONE ×2 (01:00→10:29)
[2017-07-10 01:03] LABS: ADD ON TESTING BLD IN LAB ACKNOWLEDGE
[2017-07-10] MEDS: MORPHINE SULFATE 10 MG/ML INJ IV PRN ×5 (01:14→23:17)
[2017-07-10 01:19] LABS: MAGNESIUM 2.1 mg/dL (1.6-2.3)
--- NOTE | 2017-07-10 01:42 | PDOC CONSULTATION ---
Consultation Consult Date: 07/09/17 Attending physician:: ADAM SAHA Consult reason:: Medical management and preop evaluation History of Present Illness Admission Date/PCP: 07/09/17 19:08 [facility] Patient complains of: Right upper quadrant pain History of Present Illness: DEVIN BECERRA is a 57 year old female who gives a history of right upper quadrant pain, postprandial bloating and gaseousness since December 2016. Patient admits to 2 attacks of biliary colic every month since then. Because of loss of her insurance, patient has not been able to obtain intervention and evaluation of her pain. Patient presents to the hospital with pain 8 out of 10 since this morning, but denies nausea, vomiting, fever, or chills. On evaluation in the ER, patient was found to have marked right upper quadrant tenderness with some guarding, but no rebound. Laboratory data was reviewed, and was essentially within normal limits. However ultrasound of her abdomen, revealed cholelithiasis, gallbladder wall thickening, and pericholecystic fluid , consistent with acute cholecystitis. Patient is in need of laparoscopic cholecystectomy. Surgical referral has been made. Consult obtained with hospitalist service for management of medical problems and preop evaluation. Chronic medical problems include seizure disorder, mild anxiety and depression, without suicidal or homicidal ideation, type 2 diabetes mellitus, arthritis, hyperlipidemia, hypertension, easy bruising, esophageal reflux disease, and long-standing intermittent dysphagia, with primary care provider aware of same. Has seen a drying machine receiver about dysphagia in the distant past. She is currently resting quietly, still having some abdominal pain, but overall feels better. Patient has been discussed with patient's floor nurse. Hospitalized on our service 06/30 through 07/02 of last year for recurrent seizure secondary to noncompliance, with patient having run out of her Lamictal 2 months earlier, due to lack of funds; patient without insurance at that time. History and physical and discharge summary have been reviewed. Last seizure episode, "mild" according to patient, who states her son witnessed same, was May of this year. She has been compliant with her medications. She continues to see her neurologist Dr. Brock. States that on a good day she can walk 1 to 1-1/2 blocks. When I ask why she walked no further, [place] "mapped out a longer route yet." No chest or lower extremity pain or unusual shortness of breath when walking the above distance. Dictation via voice recognition software. Laboratory results are listed in [facility] and are reviewed. X-ray summary results are listed below, with full report(s) reviewed. . EKG reviewed and compared to prior tracing from 15 June of this year. Social history/personal habits: . One son. Part-time student. No use of alcohol tobacco or illicit drugs. Allergies/adverse reactions are listed in [facility] and are reviewed. No problems with Keflex. Home medications initially autopopulated into [facility] may not accurately reflect patient's true medications, dosages, and/or frequencies. military technology manager has reconciled medications. Further additions per my conversation with patient. Unfortunately, patient not certain of all medications/dosages/frequencies. REVIEW OF SYSTEMS: Constitutional: No fever or chills. Eyes: Wears glasses ENT: Chronic intermittent dysphagia. Partial hearing loss. Pulmonary: No current complaints. Cardiovascular: No current complaints, including chest pain. Gastrointestinal: See history and present illness. Skin: No current complaints, including rashes. Hematologic: Easy bruising. Neurologic: No current complaints, including numbness or tingling. Musculoskeletal: Joint pain from arthritis. Psychiatric: Mild anxiety and depression. Endocrine: No current complaints, including polyuria. Genitourinary: No current complaints, including dysuria. PHYSICAL EXAMINATION: Female floor nurse Montse is present. 5 feet 10 inches tall. 109.4 kg. BMI 34.6 kg/m. Blood pressure 129/59. Pulse 80 and regular. Respirations are 17 and unlabored. 99% saturation on room air. Temperature 98.8. Obese somewhat chronically ill-appearing female who appears a bit older than her stated age. Pleasant awake alert and cooperative. No obvious distress other than perhaps mildly anxious. Skin is warm and dry. No grossly obvious evidence of rash in areas of skin examined. No subcutaneous nodules palpated. ENT: Hearing grossly normal to normal conversation. Tongue midline on protrusion pink and slightly tacky. Rather poor dentition. Eyes: No scleral icterus. Pupils equal and reactive to light at 4 mm. [place] conjunctivae. Neck is supple and nontender to gentle active range of motion and palpation. Midline trachea. No palpable thyroid nodule mass enlargement or tenderness. Lymphatic: No palpable cervical or clavicular nodes. Neck and lymphatic exams limited by patient body habitus. Psychiatric: Reasonable insight into acute and chronic medical issues. Oriented to time location and why here. Lungs: Auscultation reveals clear and equal breath sounds bilaterally. No use of accessory respiratory muscles. Cardiovascular: Heart regular rate and rhythm, without gallop murmur or rub. No carotid or abdominal aortic bruits. No ankle or pedal edema. Palpable dorsalis pedis pulses. Abdomen:soft obese nontender lower abdomen, with mild to moderate right upper quadrant tenderness to palpation, without guarding or peritoneal signs, and with positive bowel sounds. Unable to adequately evaluate abdomen for masses or organomegaly due to body habitus and discomfort. Extremities: Feet are warm and dry. No calf tenderness to compression. No grossly obvious visual evidence of calf swelling. Gentle manipulation of lower extremities fails to reveal any obvious evidence of injury or instability to knees hips or ankles. Neurologic: Moves upper extremities grossly normally. Patellar reflexes absent. Absent Babinski. Light touch is intact at feet. Dorsiflexion and plantarflexion of feet 5 / 5 and symmetric. Past Medical History Cardiac Medical History: Reports: Hyperlipidema, Hypertension Denies: Atrial Fibrillation, Congestive Heart Failure, Coronary Artery Disease, DVT, Myocardial Infarction, Pulmonary Embolism Pulmonary Medical History: Denies: Asthma, Chronic Obstructive Pulmonary Disease (COPD), Sleep Apnea EENT Medical History: Reports: Eyes - Glasses, Ears - Partial hearing loss, Throat - Chronic intermittent dysphagia Neurological Medical History: Reports: Seizures - Last episode May 2017 Denies: Hemorrhagic CVA, Ischemic CVA Endocrine Medical History: Reports: Diabetes Mellitus Type 2 Denies: Diabetes Mellitus Type 1, Hyperthyroidism, Hypothyroidism Renal/ Medical History: Reports: None GI Medical History: Reports: Gastroesophageal Reflux Disease Denies: Cirrhosis, Hepatitis, Peptic Ulcer Disease Musculoskeltal Medical History: Reports: Arthritis Skin Medical History: Reports: None Psychiatric Medical History: Reports: Depression, General Anxiety Disorder Denies: Alcohol Dependency, Tobacco Dependency Hematology: Reports: Other - Easy bruising Denies: Anemia Infectious Medical History: Denies: Hepatitis B, Hepatitis C Past Surgical History Past Surgical History: Reports: Section, Tubal Ligation, Other - Vagal nerve stimulator implant for seizure disorder Social History Information Source: Patient, Emergency Med Personnel, [facility] Records Lives with: Spouse/Significant other Smoking Status: Never Smoker Frequency of Alcohol Use: None Hx Recreational Drug Use: No Drugs: None Hx Prescription Drug Abuse: No - Advance Directive Resuscitation Status: Full Code Surrogate healthcare decision maker:: Family History Family History: Arthritis, CAD, CVA, DM, Hyperlipidemia, Hypertension, Malignancy, Thyroid Disfunction Parental Family History Reviewed: Yes - Mother of MA; father of brain cancer Children Family History Reviewed: Yes - Son with ADHD Sibling(s) Family History Reviewed.: Yes - Siblings with COPD and asthma Medication/Allergy Home Medications: RX: Atorvastatin Calcium [Lipitor 40 mg Tablet] 40 mg PO WSUPPER 07/09/17 RX: Duloxetine HCl 30 mg PO QHS 07/09/17 RX: Duloxetine HCl 60 mg PO QAM 07/09/17 RX: Lorazepam [Ativan 0.5 mg Tablet] 0.5 mg PO Q8HP PRN 07/09/17 RX: Metformin HCl [Glucophage] 1,000 mg PO Q12 07/09/17 RX: Omeprazole 40 mg PO DAILY 07/09/17 RX: Sucralfate [Carafate 1 gm Tablet] 1 gm PO ACHS 07/09/17 RX: Trazodone HCl [Desyrel] 150 mg PO QHS 07/09/17 RX: Zolpidem Tartrate 10 mg PO HSP PRN 07/09/17 RX: Bisoprolol Fumarate [Zebeta 5 mg Tablet] 1 tab PO DAILY 07/10/17 RX: Glimepiride [Amaryl] 2 mg PO DAILY 07/10/17 RX: Lamotrigine [Lamictal 100 mg Tablet] 200 mg PO QID 07/10/17 RX: Levetiracetam [Keppra 500 mg Tablet] 1,000 mg PO BID 07/10/17 RX: Atenolol [Tenormin 50 mg Tablet] 50 mg PO DAILY tablet 07/11/17 RX: Lamotrigine [Lamictal 100 mg Tablet] 200 mg PO QID tablet 07/11/17 RX: Lansoprazole [Prevacid 30 mg Odt Tablet] 30 mg PO [id number] tab.rap.dr 07/11 RX: Lorazepam [Ativan 0.5 mg Tablet] 0.5 mg PO Q8HP PRN tablet 07/11/17 RX: Oxycodone HCl/Acetaminophen [Percocet 5-325 mg Tablet] 1 tab PO Q4HP PRN # 20 tablet 07/11/17 RX: Trazodone HCl [Desyrel 50 mg Tablet] 150 mg PO QHS tablet 07/11/17 RX: Zolpidem Tartrate [Ambien 5 mg Tablet] 10 mg PO HSP PRN tablet 07/11/17 Allergies/Adverse Reactions: Penicillins Allergy (Severe, Verified 07/10/17 00:44) Anaphylactic shock sulfamethoxazole [From Septra] Allergy (Severe, Verified 07/09/17 14:01) Diarrhea trimethoprim [From Septra] Allergy (Severe, Verified 07/09/17 14:01) Diarrhea doxycycline [Doxycycline] Allergy (Intermediate, Verified 07/09/17 14:01) Generalized Itching levofloxacin [From Levaquin] Allergy (Intermediate, Verified 07/09/17 14:01) N&V Physical Exam Vital Signs: Temp Pulse Resp BP Pulse Ox 98.8 F 80 17 129/59 H 96 07/09/17 23:14 07/09/17 23:14 07/09/17 23:14 07/09/17 23:14 07/09/17 23:14 Intake & Output 07/09/17 07/10/17 07/11/17 00:59 00:59 00:59 Weight 109.4 kg Results Impressions: Abdomen Ultrasound 07/09/17 14:29 IMPRESSION: Stones and sludge in a contracted gallbladder with thick wall, trace pericholecystic fluid and positive sonographic Arreaga's sign. Findings are worrisome for acute cholecystitis. Assessment & Plan - Diagnosis (1) HLD (hyperlipidemia) Qualifiers: Hyperlipidemia type: unspecified Qualified Code(s): E78.5 - Hyperlipidemia , unspecified Is this a current diagnosis for this admission?: Yes Plan: Resume home medications as appropriate once these have been determined and reviewed. (2) HTN (hypertension) Qualifiers: Hypertension type: essential hypertension Qualified Code(s): I10 - Essential (primary) hypertension Is this a current diagnosis for this admission?: Yes Plan: Resume home medications as appropriate once these have been determined and reviewed. (3) Seizure disorder Is this a current diagnosis for this admission?: Yes Plan: Seizure precautions. Lamictal and Keppra levels. Resume home medications as appropriate once these have been determined and reviewed. (4) Acute cholecystitis Is this a current diagnosis for this admission?: Yes Plan: Surgical management. Due to comorbid conditions, combined with what sounds to be somewhat limited baseline activity level, will also obtain cardiology consult. I have strongly encouraged patient not to get out of bed without notifying staff , to avoid a fall with injury. DVT prophylaxis per surgery. Impression and plans were discussed with patient, who concurs. Time spent in evaluation and management of patient: 58 minutes. (5) Diabetes mellitus type 2 in obese Is this a current diagnosis for this admission?: Yes Plan: Accu-Cheks with appropriate sliding scale coverage. Resume home medications as appropriate once these have been determined and reviewed. - Time Time Spent: 50 to 70 Minutes Medications reviewed and adjusted accordingly: Yes Anticipated discharge: Home Within: within 72 hours - Inpatient Certification Based on my medical assessment, after consideration of the patient's comorbidities, presenting symptoms, or acuity I expect that the services needed warrant INPATIENT care.: Yes I certify that my determination is in accordance with my understanding of Medicare's requirements for reasonable and necessary INPATIENT services [42 CFR 412.3e].: Yes Medical Necessity: Need For IV Fluids, Need for Pain Control, Need for IV Antibiotics, Need for Surgery Post Hospital Care: D/C or Transfer Summary - Plan Summary Plan Summary: Thank you for asking us to see this pleasant patient. We will follow her closely with you and manage her medical problems.
[2017-07-10] MEDS ORDERED: LEVETIRACETAM 500 MG TABLET PO ONE (01:45)
[2017-07-10] MEDS ORDERED: ATENOLOL 50 MG TABLET PO ONE (01:45)
[2017-07-10] MEDS ORDERED: LAMOTRIGINE 100 MG TABLET PO ONE ×2 (02:00→22:00)
[2017-07-10] MEDS: CLINDAMYCIN 600 MG/D5W RTU 600 MG/50 ML RTUPB IV SCH ×4 (05:34→23:08)
[2017-07-10] MEDS: DULOXETINE HCL 30 MG CAPSULE.DR PO SCH ×2 (07:43→21:29)
[2017-07-10] MEDS ORDERED: BUPIVACAINE HCL 0.5 % INJ/PF 30 ML SDV ONE (08:34)
[2017-07-10] MEDS: ONDANSETRON HCL INJ/PF 4 MG/2 ML SDV IV PRN ×3 (08:47→19:17)
--- NOTE | 2017-07-10 09:05 | RADIOLOGY REPORT (SQ) ---
EXAM DESCRIPTION: CHEST SINGLE VIEW COMPLETED DATE/TIME: 07/10/2017 8:16 am REASON FOR STUDY: preop COMPARISON: 06/15/2017 EXAM PARAMETERS: NUMBER OF VIEWS: One view. TECHNIQUE: Single frontal radiographic view of the chest acquired. RADIATION DOSE: NA LIMITATIONS: None. FINDINGS: LUNGS AND PLEURA: No opacities, masses or pneumothorax. No pleural effusion. MEDIASTINUM AND HILAR STRUCTURES: No masses. Contour normal. HEART AND VASCULAR STRUCTURES: Heart normal in size. Normal vasculature. BONES: No acute findings. HARDWARE: Left vagal nerve stimulator. OTHER: No other significant finding. IMPRESSION: NO ACUTE RADIOGRAPHIC FINDING IN THE CHEST. TECHNICAL DOCUMENTATION: JOB ID: [id number]
[2017-07-10] MEDS ORDERED: LAMOTRIGINE 100 MG TABLET PO SCH (10:00)
[2017-07-10] MEDS ORDERED: (PENDING PHARMACY ID) (Bisoprolol Fumarate [Zebeta 5 Mg Tablet] 1 TAB) PO SCH (10:00)
[2017-07-10] MEDS ORDERED: MIDAZOLAM 2 MG/2 ML INJ ONE ×2 (10:15→10:50)
[2017-07-10] MEDS: FENTANYL CITRATE INJ/PF 100 MCG/2 ML AMPUL ONE ×3 (10:30→12:56)
[2017-07-10] MEDS ORDERED: FENTANYL CITRATE INJ/PF 250 MCG/5 ML AMPULE ONE (10:50)
[2017-07-10] MEDS ORDERED: DEXMEDETOMIDINE INJ 80 MCG/20 ML VIAL IV ONE (10:50)
[2017-07-10] MEDS ORDERED: PROPOFOL INJ 200 MG/20 ML VIAL IV ONE (10:50)
[2017-07-10] MEDS ORDERED: LIDOCAINE 2% INJ-PF (100 MG/5 ML) SYRINGE ONE (10:50)
[2017-07-10] MEDS ORDERED: ACETAMINOPHEN 100 ML IV ONE (10:51)
[2017-07-10] MEDS ORDERED: DIPHENHYDRAMINE HCL 50 MG/ML VIAL IV PRN (11:36)
[2017-07-10] MEDS ORDERED: PROMETHAZINE HCL INJ 25 MG/1 ML VIAL IV PRN (11:36)
--- NOTE | 2017-07-10 12:39 | Brief Operative Note ---
BRIEF OPERATIVE REPORT DATE OF SURGERY: 07/10/17 TIME OF SURGERY: 12:00 PREOPERATIVE DIAGNOSIS: Acute Cholecystitis with cholelithiasis POSTOPERATIVE DIAGNOSIS: Same SURGEON: ADAM SAHA FINDINGS: Markedly Distended Gall Bladder, Cholelithisis, Chronic and Acute Cholecystitis COMPLICATIONS: None ESTIMATED BLOOD LOSS: 5cc TISSUE REMOVED OR ALTERED: Gall Bladder and contents TECHNICAL PROCEDURE: See Dictation
[2017-07-10] MEDS ORDERED: PROMETHAZINE HCL INJ 25 MG/1 ML VIAL ONE (12:44)
[2017-07-10] MEDS ORDERED: ZOLPIDEM TARTRATE 5 MG TABLET PO PRN (13:15)
--- NOTE | 2017-07-10 13:36 | OPERATIVE REPORT E ---
Operative Report NAME: DEVIN BECERRA : 1960 AGE: 57Y DATE OF SURGERY: 07/10/2017 ROOM: 424 PREOPERATIVE DIAGNOSES: 1. Cholelithiasis causing biliary colic. 2. Cholecystitis. POSTOPERATIVE DIAGNOSES: 1. Cholelithiasis causing biliary colic. 2. Cholecystitis. PROCEDURE: Laparoscopic cholecystectomy. SURGEON: ADAM SAHA M.D. ANESTHESIA: General. REPLACEMENT: Crystalloids. DRAINS: None. COMPLICATIONS: None. CONDITION: Stable. FINDINGS: Patient had a markedly distended gallbladder and multiple stones in the gallbladder. Patient had evidence of acute on chronic cholecystitis. PROCEDURE: Patient was brought to the operative suite and placed in a supine position on the operating table. Monitoring devices were attached. IV sedation was administered followed by the induction of general endotracheal anesthesia. Patient's abdomen was prepped and draped in the usual sterile manner and then a time out was achieved. After all concurred, local anesthesia was injected just below the umbilicus and then a curvilinear incision was made through the skin and subcutaneous tissue down to the linea alba. Two 0-Vicryl stay sutures were placed on the linea alba and then an incision was made between these 2 stay sutures. We then grasped the peritoneum with 3 hemostats and an incision was made through the peritoneum and the abdominal cavity was entered. Digital exploration was done to ensure that there was no abdominal viscera adherent to the anterior abdominal wall. We then inserted our Niru trocar, 10 mm size, and secured it with the two 0-Vicryl stay sutures. We insufflated the abdomen with CO2 and then inserted laparoscopic camera and light source and surveyed the abdominal cavity. We saw no evidence of any bleeding or injuries. We then focused our attention to placing the remaining 3 trocars in the usual anatomic positions after injecting local anesthesia prior to inserting each trocar. We identified the gallbladder and noted it was markedly distended. We grasped the fundus of the gallbladder and retracted it superiorly over the liver. We grasped the infundibulum of the gallbladder and retracted it laterally. We then began dissecting Calot triangle and stripped away the thickened serosal tissues around the cystic duct and cystic artery consistent with the diagnosis of chronic cholecystitis. After skeletonizing the cystic artery and cystic duct, Hemoclips were placed on both close to the gallbladder, and the cystic duct and cystic artery were divided. We then grasped the infundibulum of the gallbladder and dissected the gallbladder off the liver using reticulating scissors and cautery. After detaching the gallbladder from the liver we removed the gallbladder through the upper abdominal trocar site. Hemostasis along the gallbladder bed was accomplished using the cautery and when adequate hemostasis was assured we then placed a 0-Vicryl tie at the upper abdominal 10-mm trocar site as we removed our upper abdominal trocar. After tying the fascial side we then removed all trocars under direct vision and decompressed the abdomen. We then closed our infraumbilical incision using 0-Vicryl continuous suture and then all skin incisions were closed using darion. The patient tolerated the procedure well. Sponge and instrument counts were correct, and the patient was discharged to the PACU in stable condition. DICTATING PHYSICIAN: ADAM SAHA M.D. [id number] PHY#: [id number] ID: [id number] JOB#: [id number] ACCT: [id number] cc:ADAM SAHA M.D. >
[2017-07-10] MEDS: ENOXAPARIN SODIUM INJ 40 MG/0.4 ML DISP.SYRIN SUBCUT SCH (14:18)
[2017-07-10] MEDS: ATENOLOL 50 MG TABLET PO SCH (14:18)
[2017-07-10] MEDS: FAMOTIDINE INJ/PF 20 MG/2 ML SDV IV SCH ×2 (14:18→21:29)
[2017-07-10] MEDS: LEVETIRACETAM 500 MG TABLET PO SCH ×2 (14:18→17:29)
[2017-07-10] MEDS: OXYCODONE-ACETAMINOPHEN 5-325 MG TABLET PO PRN (14:24)
[2017-07-10] MEDS ORDERED: NEOSTIGMINE METHYLSULFATE 10 MG/10 ML VIAL ONE (19:03)
[2017-07-10] MEDS ORDERED: PHENYLEPHRINE HCL INJ/PF 10 MG/1 ML SDV ONE (19:03)
[2017-07-10] MEDS ORDERED: GLYCOPYRROLATE INJ 0.4 MG/2 ML VIAL ONE (19:03)
[2017-07-10] MEDS ORDERED: SUCCINYLCHOLINE CHLORIDE INJ 200 MG/10 ML VIAL ONE (19:03)
[2017-07-10] MEDS ORDERED: ONDANSETRON HCL INJ/PF 4 MG/2 ML SDV ONE (19:03)
[2017-07-10] MEDS ORDERED: METOCLOPRAMIDE HCL INJ/PF 10 MG/2 ML SDV ONE (19:03)
[2017-07-10] MEDS ORDERED: ROCURONIUM BROMIDE INJ 50 MG/5 ML VIAL IV ONE (19:03)
[2017-07-10] MEDS ORDERED: DEXAMETHASONE SOD PHOSPHATE INJ 4 MG/1 ML VIAL ONE (19:03)
[2017-07-10] MEDS ORDERED: TRAZODONE HCL 50 MG TABLET PO SCH (22:00)
--- NOTE | 2017-07-10 23:38 | PDOC CONSULTATION ---
Consultation Consult Date: 07/10/17 Attending physician:: RICH MIDDLETON Consult reason:: Pre Op clearancr History of Present Illness Admission Date/PCP: 07/09/17 19:08 [facility] Patient complains of: abd pain History of Present Illness: DEVIN BECERRA is a 57 year old female who gives a history of right upper quadrant pain, postprandial bloating and gaseousness since December 2016. Patient admits to 2 attacks of biliary colic every month since then. Because of loss of her insurance, patient has not been able to obtain intervention and evaluation of her pain. Patient presents to the hospital with pain 8 out of 10 since this morning, but denies nausea, vomiting, fever, or chills. On evaluation in the ER, patient was found to have marked right upper quadrant tenderness with some guarding, but no rebound. Laboratory data was reviewed, and was essentially within normal limits. However ultrasound of her abdomen, revealed cholelithiasis, gallbladder wall thickening, and pericholecystic fluid , consistent with acute cholecystitis. Patient is in need of laparoscopic cholecystectomy. Surgical referral has been made. Chronic medical problems include seizure disorder, mild anxiety and depression, without suicidal or homicidal ideation, type 2 diabetes mellitus, arthritis, hyperlipidemia, hypertension, easy bruising, esophageal reflux disease, and long -standing intermittent dysphasia, with primary care provider aware of same. Has seen a professor of geography about this dysphasia in the distant past. Patient has been discussed with patient's floor nurse. States that on a good day she can walk 1 to 1-1/2 blocks. When I ask why she walked no further, [place] "mapped out a longer route yet." No chest or lower extremity pain or unusual shortness of breath when walking the above distance. Past Medical History Cardiac Medical History: Reports: Hyperlipidema, Hypertension Denies: Atrial Fibrillation, Congestive Heart Failure, Coronary Artery Disease, DVT, Myocardial Infarction, Pulmonary Embolism Pulmonary Medical History: Denies: Asthma, Chronic Obstructive Pulmonary Disease (COPD), Sleep Apnea EENT Medical History: Reports: Eyes - Glasses, Ears - Partial hearing loss, Throat - Chronic intermittent dysphagia, Other - Easy bruising Neurological Medical History: Reports: Seizures Denies: Hemorrhagic CVA, Ischemic CVA Endocrine Medical History: Reports: Diabetes Mellitus Type 2 Denies: Diabetes Mellitus Type 1, Hyperthyroidism, Hypothyroidism Renal/ Medical History: Reports: None GI Medical History: Reports: Gastroesophageal Reflux Disease Denies: Cirrhosis, Hepatitis, Peptic Ulcer Disease Musculoskeltal Medical History: Reports: Arthritis - Lt knee Skin Medical History: Reports: None Psychiatric Medical History: Reports: Attention Deficit Hyperactivity Disorder, Depression, General Anxiety Disorder Denies: Alcohol Dependency, Tobacco Dependency Hematology: Reports: Other - Easy bruising Denies: Anemia Infectious Medical History: Denies: Hepatitis B, Hepatitis C Past Surgical History Past Surgical History: Reports: Section, Tubal Ligation, Other - Vagal nerve stimulator implant for seizure disorder Social History Lives with: Spouse/Significant other Smoking Status: Unknown if Ever Smoked Frequency of Alcohol Use: None Hx Recreational Drug Use: No Drugs: None Hx Prescription Drug Abuse: No - Advance Directive Resuscitation Status: Full Code Family History Family History: Arthritis, CAD, CVA, DM, Hyperlipidemia, Hypertension, Malignancy, Thyroid Disfunction Parental Family History Reviewed: Yes Children Family History Reviewed: Yes Sibling(s) Family History Reviewed.: Yes Medication/Allergy Home Medications: Atorvastatin Calcium [Lipitor 40 mg Tablet] 40 mg PO WSUPPER 07/09/17 Duloxetine HCl 30 mg PO QHS 07/09/17 Duloxetine HCl 60 mg PO QAM 07/09/17 Lorazepam [Ativan 0.5 mg Tablet] 0.5 mg PO Q8HP PRN 07/09/17 Metformin HCl [Glucophage] 1,000 mg PO Q12 07/09/17 Omeprazole 40 mg PO DAILY 07/09/17 Sucralfate [Carafate 1 gm Tablet] 1 gm PO ACHS 07/09/17 Trazodone HCl [Desyrel] 150 mg PO QHS 07/09/17 Zolpidem Tartrate 10 mg PO HSP PRN 07/09/17 Bisoprolol Fumarate [Zebeta 5 mg Tablet] 1 tab PO DAILY 07/10/17 Glimepiride [Amaryl] 2 mg PO DAILY 07/10/17 Lamotrigine [Lamictal 100 mg Tablet] 200 mg PO QID 07/10/17 Levetiracetam [Keppra 500 mg Tablet] 1,000 mg PO BID 07/10/17 Atenolol [Tenormin 50 mg Tablet] 50 mg PO DAILY tablet 07/11/17 Lamotrigine [Lamictal 100 mg Tablet] 200 mg PO QID tablet 07/11/17 Lansoprazole [Prevacid 30 mg Odt Tablet] 30 mg PO ACBRKFST tab. 07/11/17 Lorazepam [Ativan 0.5 mg Tablet] 0.5 mg PO Q8HP PRN tablet 07/11/17 Oxycodone HCl/Acetaminophen [Percocet 5-325 mg Tablet] 1 tab PO Q4HP PRN #20 tablet 07/11/17 Trazodone HCl [Desyrel 50 mg Tablet] 150 mg PO QHS tablet 07/11/17 Zolpidem Tartrate [Ambien 5 mg Tablet] 10 mg PO HSP PRN tablet 07/11/17 Allergies/Adverse Reactions: Penicillins Allergy (Severe, Verified 07/10/17 00:44) Anaphylactic shock sulfamethoxazole [From Septra] Allergy (Severe, Verified 07/09/17 14:01) Diarrhea trimethoprim [From Septra] Allergy (Severe, Verified 07/09/17 14:01) Diarrhea doxycycline [Doxycycline] Allergy (Intermediate, Verified 07/09/17 14:01) Generalized Itching levofloxacin [From Levaquin] Allergy (Intermediate, Verified 07/09/17 14:01) N&V Review of Systems Constitutional: PRESENT: anorexia. ABSENT: chills, fever(s), headache(s), weight gain, weight loss Eyes: ABSENT: visual disturbances Ears: ABSENT: hearing changes Nose, Mouth, and Throat: ABSENT: as per HPI, headache(s), mouth pain, sore throat, vertigo, other Cardiovascular: ABSENT: chest pain, dyspnea on exertion, edema, orthropnea, palpitations Respiratory: ABSENT: cough, hemoptysis Gastrointestinal: PRESENT: abdominal pain, dysphagia, heartburn. ABSENT: constipation, diarrhea, hematemesis, hematochezia, melena, nausea, vomiting Genitourinary: ABSENT: difficulty urinating, dysuria, hematuria Musculoskeletal: ABSENT: joint swelling, muscle weakness Integumentary: ABSENT: rash, wounds Neurological: ABSENT: abnormal gait, abnormal speech, confusion, dizziness, focal weakness, syncope Psychiatric: PRESENT: anxiety, depression. ABSENT: homidical ideation, suicidal ideation Endocrine: ABSENT: cold intolerance, heat intolerance, polydipsia, polyuria Physical Exam Vital Signs: Temp Pulse Resp BP Pulse Ox 99.4 F 92 18 148/76 H 90 L 07/10/17 23:08 07/10/17 23:08 07/10/17 23:08 07/10/17 23:08 07/10/17 23:08 Intake & Output 07/09/17 07/10/17 07/11/17 06:59 06:59 06:59 Intake Total 900 2400 Output Total 480 1025 Balance 420 1375 Weight 109.4 kg General appearance: PRESENT: no acute distress, well-developed, well-nourished Head exam: PRESENT: atraumatic, normocephalic Eye exam: PRESENT: conjunctiva pink, EOMI, PERRLA. ABSENT: scleral icterus Ear exam: PRESENT: normal external ear exam Mouth exam: PRESENT: moist, tongue midline Neck exam: ABSENT: carotid bruit, JVD, lymphadenopathy, thyromegaly Respiratory exam: PRESENT: clear to auscultation robert. ABSENT: rales, rhonchi, wheezes Cardiovascular exam: PRESENT: RRR, +S1, +S2. ABSENT: diastolic murmur, rubs, systolic murmur Pulses: PRESENT: normal dorsalis pedis pul Vascular exam: PRESENT: normal capillary refill GI/Abdominal exam: PRESENT: Arreaga's sign, normal bowel sounds, soft. ABSENT: distended, guarding, mass, organolmegaly, rebound, tenderness Rectal exam: PRESENT: deferred Extremities exam: PRESENT: full ROM. ABSENT: calf tenderness, clubbing, pedal edema Neurological exam: PRESENT: alert, awake, oriented to person, oriented to place , oriented to time, oriented to situation, CN II-XII grossly intact. ABSENT: motor sensory deficit Psychiatric exam: PRESENT: appropriate affect, normal mood. ABSENT: homicidal ideation, suicidal ideation Focused psych exam: ABSENT: catatonic, delusional, euphoric, flight of ideas, internal stimuli, paranoid, pressured speech, psychomotor agitation, restlessness, other Skin exam: PRESENT: dry, intact, warm. ABSENT: cyanosis, rash Results EKG Comments: Sinus, No acute ST-T changes Impressions: Abdomen Ultrasound 07/09/17 14:29 IMPRESSION: Stones and sludge in a contracted gallbladder with thick wall, trace pericholecystic fluid and positive sonographic Arreaga's sign. Findings are worrisome for acute cholecystitis. Chest X-Ray 07/10/17 00:00 IMPRESSION: NO ACUTE RADIOGRAPHIC FINDING IN THE CHEST. Assessment & Plan - Diagnosis (1) Acute cholecystitis Is this a current diagnosis for this admission?: Yes (2) HLD (hyperlipidemia) Qualifiers: Hyperlipidemia type: unspecified Qualified Code(s): E78.5 - Hyperlipidemia , unspecified Is this a current diagnosis for this admission?: Yes (3) HTN (hypertension) Qualifiers: Hypertension type: essential hypertension Qualified Code(s): I10 - Essential (primary) hypertension Is this a current diagnosis for this admission?: Yes (4) Seizure disorder Is this a current diagnosis for this admission?: Yes (5) Diabetes mellitus type 2 in obese Is this a current diagnosis for this admission?: Yes (6) Preoperative cardiovascular examination Is this a current diagnosis for this admission?: Yes - Notes Notes: Patient in SR, No CHF, No cardiac dysrhythmia, No recent angina. Patient felt at acceptable risk for cholecystectomy Acute cholecystitis: Patient noted to have acute cholecystitis. Patient will benefit from surgery. Currently do not see any contraindications. Hyperlipidemia: Recommend statin therapy. Hypertension: Recommend good control. Blood pressure goal would be 135/85. Currently blood pressure stable. Diabetes: Recommend good control of blood sugar. However should avoid any hypoglycemia. Patient being expertly managed by primary care MChristopher Seizure disorder: Currently stable. Preop cardiovascular evaluation: Patient seems stable from cardiac standpoint. There is no evidence of ongoing angina, CHF or any cardiac dysrhythmia therefore cleared for surgery with average risk. May consider postop EKGs. - Time Time Spent: 30 to 50 Minutes - CODE STATUS was discussed, patient remains full code. Multiple medical problems were addressed. More than 50% of the time spent coordinating care, discussing management plans with involved caregivers. Management plans discussed with involved personnels. Medical decision making was of moderate to high complexity, patient's has multiple comorbidities. Medications reviewed and adjusted accordingly: Yes
--- NOTE | 2017-07-10 23:56 | EKG REPORT ---
SEVERITY:- BORDERLINE ECG - SINUS RHYTHM LVH BY VOLTAGE : Confirmed by: Alva Good 10-Jul-2017 23:55:30
[2017-07-11] MEDS: CLINDAMYCIN 600 MG/D5W RTU 600 MG/50 ML RTUPB IV SCH ×3 (05:14→17:14)
[2017-07-11] MEDS: MORPHINE SULFATE 10 MG/ML INJ IV PRN (05:14)
[2017-07-11] MEDS ORDERED: LAMOTRIGINE 100 MG TABLET PO ONE (06:00)
[2017-07-11] MEDS: NORMAL SALINE 1000 ML 1,000 ML IV PRN (06:21)
[2017-07-11] MEDS: OXYCODONE-ACETAMINOPHEN 5-325 MG TABLET PO PRN ×3 (07:36→16:47)
[2017-07-11] MEDS: DULOXETINE HCL 30 MG CAPSULE.DR PO SCH (07:39)
[2017-07-11] MEDS ORDERED: LANSOPRAZOLE 30 MG TAB.RAP.DR PO SCH (08:00)
--- NOTE | 2017-07-11 09:27 | DISCHARGE SUMMARY E ---
Discharge Summary NAME: DEVIN BECERRA : 1960 AGE: 57Y ADMITTED: 07/09/2017 DISCHARGED: 07/11/2017 DISCHARGE DIAGNOSIS: Status post laparoscopic cholecystectomy for acute cholecystitis with cholelithiasis. HOSPITAL COURSE: This 57-year-old female presented to the emergency room with right upper quadrant pain. Patient gives a history of biliary colic going back to December of 2016. Because she lost her insurance, patient was not able to get adequate care and surgical intervention. However, she presented to the emergency room because of right upper quadrant pain and was noted to have right upper quadrant tenderness with guarding. Patient had a positive Arreaga's sign. Ultrasound showed pericholecystic fluid and cholelithiasis consistent with acute cholecystitis. Patient was admitted to the hospital and was taken to the operating room the following day for uneventful laparoscopic cholecystectomy. Patient's postop course was uneventful. She was tolerating her meals. Patient had significant amount of gas pain and has been ambulating. Patient is tolerating her diet. She has good bowel function and is hemodynamically stable. On exam before discharge, patient's abdomen is soft. Bowel sounds are present. Incisional tenderness is noted only. Patient is now discharged home on Percocet 5 mg 1 q.4, which she has been given 20 tablets. Patient is to be seen in the [facility] in 7-10 days. DICTATING PHYSICIAN: ADAM SAHA M.D. [id number] PHY#: [id number] ID: [id number] JOB#: [id number] ACCT: [id number] cc:ADAM SAHA M.D., E. R. >
[2017-07-11] MEDS: LEVETIRACETAM 500 MG TABLET PO SCH ×2 (10:07→17:18)
[2017-07-11] MEDS: ENOXAPARIN SODIUM INJ 40 MG/0.4 ML DISP.SYRIN SUBCUT SCH (10:08)
[2017-07-11] MEDS: FAMOTIDINE INJ/PF 20 MG/2 ML SDV IV SCH (10:08)
[2017-07-11] MEDS: ATENOLOL 50 MG TABLET PO SCH (10:08)
--- NOTE | 2017-07-11 13:21 | PDOC PROGRESS REPORT ---
Subjective Progress Note for:: 07/10/17 Subjective:: Patient seen on rounds. She just recently returned from the OR after choleycystectomy. She is sleepy. She is having moderate incisional pain that is well controlled by prn analgesics. She denies any shortness of breath or dyspnea. She denies any nausea or vomiting. Remaining review of systems is negative. Physical Exam Vital Signs: Temp Pulse Resp BP Pulse Ox 98.6 F 97 18 148/76 H 82 L 07/11/17 09:31 07/11/17 09:31 07/11/17 09:31 07/11/17 09:31 07/11/17 09:31 Intake & Output 07/10/17 07/11/17 07/12/17 06:59 06:59 06:59 Intake Total 900 4400 Output Total 480 2475 Balance 420 1925 Weight 109.4 kg 112.3 kg General appearance: PRESENT: no acute distress, obese, well-developed, well- nourished Head exam: PRESENT: atraumatic, normocephalic Eye exam: PRESENT: conjunctiva pink, EOMI, PERRLA. ABSENT: scleral icterus Ear exam: PRESENT: normal external ear exam Mouth exam: PRESENT: moist, tongue midline Neck exam: ABSENT: carotid bruit, JVD, lymphadenopathy, thyromegaly Respiratory exam: PRESENT: clear to auscultation robert. ABSENT: rales, rhonchi, wheezes Cardiovascular exam: PRESENT: RRR. ABSENT: diastolic murmur, rubs, systolic murmur Pulses: PRESENT: normal dorsalis pedis pul Vascular exam: PRESENT: normal capillary refill GI/Abdominal exam: PRESENT: normal bowel sounds, soft. ABSENT: distended, guarding, mass, organolmegaly, rebound, tenderness Rectal exam: PRESENT: deferred Extremities exam: PRESENT: full ROM. ABSENT: calf tenderness, clubbing, pedal edema Neurological exam: PRESENT: alert, awake, oriented to person, oriented to place , oriented to time, oriented to situation, CN II-XII grossly intact. ABSENT: motor sensory deficit Psychiatric exam: PRESENT: appropriate affect, normal mood. ABSENT: homicidal ideation, suicidal ideation Skin exam: PRESENT: dry, intact, warm. ABSENT: cyanosis, rash Results Impressions: Abdomen Ultrasound 07/09/17 14:29 IMPRESSION: Stones and sludge in a contracted gallbladder with thick wall, trace pericholecystic fluid and positive sonographic Arreaga's sign. Findings are worrisome for acute cholecystitis. Chest X-Ray 07/10/17 00:00 IMPRESSION: NO ACUTE RADIOGRAPHIC FINDING IN THE CHEST. Assessment & Plan - Diagnosis (1) Acute cholecystitis Is this a current diagnosis for this admission?: Yes Plan: Patient is post op lap choley (2) Cholelithiasis Qualifiers: Cholelithiasis location: gallbladder Cholecystitis presence: with cholecystitis Cholecystitis acuity: acute and chronic Biliary obstruction: without biliary obstruction Qualified Code(s): K80.12 - Calculus of gallbladder with acute and chronic cholecystitis without obstruction Plan: As above (3) Seizure disorder Is this a current diagnosis for this admission?: Yes Plan: As above (4) Diabetes mellitus type 2 in obese Is this a current diagnosis for this admission?: Yes Plan: Hold metformin. Will resume post op day #2 if tolerating diet Continue sliding scale coverage (5) Family history of ischemic heart disease Is this a current diagnosis for this admission?: Yes Plan: No chest pain or ekg changes - Time Time Spent with patient: 25-34 minutes Critical Time spent with patient: 15-24 minutes Medications reviewed and adjusted accordingly: Yes Anticipated discharge: Home with Homehealth Within: within 48 hours - Inpatient Certification Based on my medical assessment, after consideration of the patient's comorbidities, presenting symptoms, or acuity I expect that the services needed warrant INPATIENT care.: Yes
--- NOTE | 2017-07-11 15:17 | PROGRESS NOTE E ---
Progress Note NAME: DEVIN BECERRA : 1960 AGE: 57Y DATE: 07/11/2017 ROOM: 424 SUBJECTIVE: The patient had her gallbladder surgery yesterday, and she has no further abdominal pain except for some mild incisional pain at the site of operation. There is no nausea, vomiting, or diarrhea. The patient denies any chest pain or discomfort. There is no PND, discomfort, or palpitations. There are no TIA or CVA symptoms. OBJECTIVE: GENERAL: On examination, the patient is mild to moderately obese but seems to be in no acute distress but is well groomed. VITAL SIGNS: She is afebrile with a temperature of 98.8 degrees Fahrenheit. Pulse is 83 beats per minute. Blood pressure is 125/72. Respirations are 15 per minute. O2 saturations are 86% on room air. The patient has been asked to take deep breaths. HEAD: Normocephalic/atraumatic. EYES: Pupils are equal, round, regular, reactive to light and accommodation. Extraocular movements are normal. There is no conjunctival pallor. There is no scleral icterus. EARS, NOSE, AND THROAT: Negative. NECK: Supple. There is no carotid bruit. Carotids are of normal impulse. There is no lymphadenopathy. There is no thyromegaly. Trachea is central. LUNGS: Clear to auscultation and percussion without any rhonchi, rales, or wheezing. HEART: S1, S2 is heard. There is no S3 gallop or S4 gallop. There is no rub. There is a systolic murmur in the left sternal border and the apex. PULSES: Femorals are well felt. There is no femoral bruit. Leg pulses are felt. EXTREMITIES: There is no pedal edema. There is no DVT or cellulitis. There is normal capillary refill. There is no calf tenderness. There is no cyanosis or clubbing. CENTRAL NERVOUS SYSTEM: The patient is conscious, awake, alert, oriented x3 with no focal deficits. PSYCHIATRIC: The patient's judgement and insight are intact. Her affect is normal. DIAGNOSTIC DATA: The patient's EKG done shows sinus rhythm, probable LVH with probable secondary repolarization changes. The patient's glucose is 158 and 137. ASSESSMENT: 1. ACUTE CHOLECYSTITIS, STATUS POST CHOLECYSTECTOMY. 2. HYPERLIPIDEMIA. 3. HYPERTENSION, CONTINUE CURRENT MEDICATION. 4. SEIZURE DISORDER. 5. DIABETES MELLITUS TYPE 2, NON-INSULIN DEPENDENT. PLAN: The patient is stable without any evidence of chest pain or discomfort or symptoms of heart failure. The patient is being discharged today. Note that the patient is a FULL CODE. Her is the surrogate healthcare decision maker. Note that 25 minutes were spent with this patient with more than 50% of the time spent on direct patient care. Her medications have been reviewed, and medical decision making was of moderate complexity. Will sign off the case. Discussed with the other caregivers on the case. DICTATING PHYSICIAN: RANDALL NELSON M.D. [id number] PHY#: [id number] ID: [id number] JOB#: [id number] ACCT: [id number] cc:RANDALL NELSON M.D. >
[2017-07-11 15:55] VITALS: BP 112/78
--- NOTE | 2017-07-11 21:01 | EKG REPORT ---
SEVERITY:- ABNORMAL ECG - SINUS RHYTHM PROBABLE LVH WITH SECONDARY REPOL ABNRM : Confirmed by: Alva Good 11-Jul-2017 21:00:39
[2017-07-13 08:10] LABS: LEVETIRACETAM (KEPPRA) 6.9 ug/mL (10.0-40.0)
[2017-07-13 14:46] LABS: LAMOTRIGINE (LAMICTAL) 6.5 ug/mL (2.0-20.0)
== END 2017-07-11 17:54 | disposition home or self-care (01) ==
LOC: ER 13:54 → UNDOADMIN 18:10 → INTOOBSV 18:10 → UNDOADMOB 18:10 → EH 18:10 → 4S 20:53
PROVIDERS: ATTEND Surgery
PROC: 0FT44ZZ Resection of Gallbladder, Percutaneous Endoscopic Approach (ICD-10-PCS; principal; 2017-07-10 10:15)
DX: K80.12 Calculus of gallbladder with acute and chronic cholecystitis without obstruction (principal); Z87.19 Personal history of other diseases of the digestive system; Z80.9 Family history of malignant neoplasm, unspecified; Z98.51 Tubal ligation status; Z98.890 Other specified postprocedural states; R14.1 Gas pain; G40.909 Epilepsy, unspecified, not intractable, without status epilepticus; F41.9 Anxiety disorder, unspecified; F32.9 Major depressive disorder, single episode, unspecified; E11.9 Type 2 diabetes mellitus without complications; M17.12 Unilateral primary osteoarthritis, left knee; E78.5 Hyperlipidemia, unspecified; I10 Essential (primary) hypertension; K21.9 Gastro-esophageal reflux disease without esophagitis; R13.10 Dysphagia, unspecified; E66.9 Obesity, unspecified; R09.89 Other specified symptoms and signs involving the circulatory and respiratory systems; Z01.810 Encounter for preprocedural cardiovascular examination; R13.19 Other dysphagia; G89.18 Other acute postprocedural pain; H91.8X9 Other specified hearing loss, unspecified ear; Z79.899 Other long term (current) drug therapy; Z96.89 Presence of other specified functional implants; Z79.84 Long term (current) use of oral hypoglycemic drugs; Z68.34 Body mass index [BMI] 34.0-34.9, adult; Z82.49 Family history of ischemic heart disease and other diseases of the circulatory system
CPT/HCPCS: 93005 ×3; 96376; 99285; 96374; 96375; 36415; 80177; 82962 ×3; 83690; 83735; 85025; 81025; 80053; 80175; 81001; 88304 ×2; 71010; 76705; 93010 ×3; 47562; G0378 ×4; J2250; J3490 ×3; J1100; J3010 ×2; J2001; J2765; J2270 ×3; J1650 ×2; J1170; J2060; J2370; J2550; J0330; J2405 ×2; J7030 ×2; J2704; S0028 ×3; J0131; 790

== ENCOUNTER → 2017-08-24 | Outpatient (CLI) | payer OTHER ==
[2017-08-24 12:50] LABS: ANION GAP 17 (5-19); BLOOD UREA NITROGEN 8 mg/dL (7-20); CALCIUM 10.3 mg/dL (8.4-10.2); CARBON DIOXIDE 24 mmol/L (22-30); CHLORIDE 100 mmol/L (98-107); CREATININE RESULT 0.65 mg/dL (0.52-1.25); GLUCOSE 100 mg/dL (75-110); POTASSIUM 4.6 mmol/L (3.6-5.0)
== END ==
LOC: CCC 11:19
PROVIDERS: ATTEND Surgery
DX: Z79.899 Other long term (current) drug therapy (principal)
CPT/HCPCS: 36415; 80048

== ENCOUNTER → 2017-09-08 | Outpatient (CLI) | payer OTHER ==
--- NOTE | 2017-09-08 10:54 | RADIOLOGY REPORT (SQ) ---
EXAM DESCRIPTION: CT ABD/PELVIS WITH IV ORAL COMPLETED DATE/TIME: 09/08/2017 8:21 am REASON FOR STUDY: CHRONIC EPIGASTRIC PAIN (G89.29) G89.29 OTHER CHRONIC PAIN COMPARISON: CT abdomen pelvis 01/21/2007, 06/23/2008, 04/30/2009 TECHNIQUE: CT scan of the abdomen and pelvis performed using helical scanning technique with dynamic intravenous contrast injection. No oral contrast. Images reviewed with lung, soft tissue, and bone windows. Reconstructed coronal and sagittal MPR images reviewed. Delayed images for evaluation of the urinary system also acquired. All images stored on PACS. All CT scanners at this facility use dose modulation, iterative reconstruction, and/or weight based d osing when appropriate to reduce radiation dose to as low as reasonably achievable (ALARA). [facility]: Dose Right [facility]: CareDose [facility]: Dose Right [facility]: Teradose 4D [facility]: Madrone CONTRAST TYPE AND DOSE: contrast/concentration: Isovue 370.00 mg/ml; Total Contrast Delivered: 100.0 ml; Total Saline Delivered: 72.0 ml RENAL FUNCTION: Creatinine 0.65 . RADIATION DOSE: Up-to-date CT equipment and radiation dose reduction techniques were employed. CTDIv ol: 19.0 - 19.9 mGy. DLP: 3173 mGy-cm.. LIMITATIONS: None. FINDINGS: LOWER CHEST: No significant findings. No nodules or infiltrates. LIVER: Normal size. No masses. No dilated ducts. SPLEEN: Normal size. No focal lesions. PANCREAS: No masses. No significant calcifications. No adjacent inflammation or peripancreatic fluid collections. Pancreatic duct not dilated. GALLBLADDER: Post cholecystectomy ADRENAL GLANDS: No significant masses or asymmetry. RIGHT KIDNEY AND URETER: No solid masses. No significant calcifications. No hydronephrosis or hyd roureter. LEFT KIDNEY AND URETER: No solid masses. No significant calcifications. No hydronephrosis or hydr oureter. AORTA AND VESSELS: No aneurysm. No dissection. Renal arteries, SMA, celiac without stenosis. RETROPERITONEUM: No retroperitoneal adenopathy, hemorrhage or masses. BOWEL AND PERITONEAL CAVITY: No masses or inflammatory changes. No free fluid or peritoneal masses. P atient drank oral contrast. No evidence of bowel obstruction APPENDIX: The appendix is retrocecal and normal size, with few air bubbles in the lumen suggesting ag ainst acute appendicitis. However, just superior to the appendix tip in the right retroperitoneum, d orsal to the ascending colon an ill-defined retroperitoneal soft tissue mass is present measuring 4.3 cm craniocaudad by 1 cm AP by 2 cm transverse. This is of uncertain etiology, there are adjacent sm all subcentimeter lymph nodes. This could represent chronic inflammatory change related to prior chrissy endicitis. A primary fatty tumor in the retroperitoneum is possible but considered less likely. PELVIS: No mass. No free fluid. Normal bladder. Normal size female pelvic organs. ABDOMINAL WALL: No masses. No hernias. Old laparoscopic tract in the midline supraumbilical region w ithout hernia, best shown on sagittal image 53 BONES: Chronic upper endplate 25% compression of T12. OTHER: No other significant finding. IMPRESSION: Ill-defined mass versus post inflammatory change in the right retroperitoneum, adjacent to the tip of a currently normal appearing retrocecal appendix. This is abnormal but nonspecific, an d could be related to old resolved appendicitis. A primary retroperitoneal tumor is possible. Surgi bria consultation recommended. TECHNICAL DOCUMENTATION: JOB ID: [id number] Quality ID # [id number]: Final reports with documentation of one or more dose reduction techniques (e.g., Au tomated exposure control, adjustment of the mA and/or kV according to patient size, use of iterative reconstruction technique) 2010 [email or web address]- All Rights Reserved
== END ==
LOC: RAD 07:39
DX: R10.13 Epigastric pain (principal)
CPT/HCPCS: 74177

== ENCOUNTER 2017-09-09 14:35 | Emergency (ER) | payer OTHER ==
--- NOTE | 2017-09-09 16:05 | ER Document Report ---
ED Medical Screen (RME) - General Chief Complaint: Epigastric Pain Stated Complaint: EPIGASTRIC PAIN, NAUSEA Time Seen by Provider: 09/09/17 16:05 Notes: Patient sent from the [facility] with right lower quadrant pain and an abnormal CT scan. CT scan was apparently done yesterday. She also had some labs drawn today that with the patient. TRAVEL OUTSIDE OF THE [place] IN LAST 30 DAYS: No - Related Data Allergies/Adverse Reactions: Penicillins Allergy (Severe, Verified 09/09/17 15:07) Anaphylactic shock sulfamethoxazole [From Septra] Allergy (Severe, Verified 09/09/17 15:07) Diarrhea trimethoprim [From Septra] Allergy (Severe, Verified 09/09/17 15:07) Diarrhea doxycycline [Doxycycline] Allergy (Intermediate, Verified 09/09/17 15:07) Generalized Itching levofloxacin [From Levaquin] Allergy (Intermediate, Verified 09/09/17 15:07) N&V Past Medical History - Social History Chew tobacco use (# tins/day): No Frequency of alcohol use: None Drug Abuse: None - Past Medical History Cardiac Medical History: Reports: Hx Hypercholesterolemia, Hx Hypertension Denies: Hx Atrial Fibrillation, Hx Congestive Heart Failure, Hx Coronary Artery Disease, Hx DVT, Hx Heart Attack, Hx Pulmonary Embolism Pulmonary Medical History: Denies: Hx Asthma, Hx COPD, Hx Sleep Apnea Neurological Medical History: Reports: Hx Seizures Endocrine Medical History: Reports: Hx Diabetes Mellitus Type 2. Denies: Hx Diabetes Mellitus Type 1, Hx Hyperthyroidism, Hx Hypothyroidism Renal/ Medical History: Denies: Hx Peritoneal Dialysis GI Medical History: Reports: Hx Gastroesophageal Reflux Disease. Denies: Hx Cirrhosis, Hx Hepatitis Musculoskeltal Medical History: Reports Hx Arthritis Psychiatric Medical History: Reports: Hx Anxiety, Hx Attention Deficit Hyperactivity Disorder, Hx Depression Infectious Medical History: Denies: Hx Hepatitis Past Surgical History: Reports: Hx Abdominal Surgery - HERNIA, Hx Section, Hx Cholecystectomy, Hx Inguinal Hernia, Hx Neurologic Surgery - Vagal nerve stimulator, Hx Tubal Ligation, Other - Vagal nerve stimulator implant for seizure disorder - Immunizations Immunizations up to date: No Hx Diphtheria, Pertussis, Tetanus Vaccination: No History of Influenza Vaccine for 08/2017 - 01/2018 Season: Yes Physical Exam - Vital signs Vitals: Temp Pulse Resp BP Pulse Ox 98.1 F 80 21 H 140/92 H 97 09/09/17 14:56 09/09/17 14:56 09/09/17 14:56 09/09/17 14:56 09/09/17 14:56 Course - Vital Signs Vital signs: Temp Pulse Resp BP Pulse Ox 98.1 F 80 21 H 140/92 H 96 09/09/17 14:58 09/09/17 14:58 09/09/17 14:58 09/09/17 14:58 09/09/17 14:58
[2017-09-09] MEDS ORDERED: NORMAL SALINE 1000 ML 1,000 ML IV PRN (18:54)
--- NOTE | 2017-09-09 19:22 | ER Document Report ---
ED General - General Chief Complaint: Epigastric Pain Stated Complaint: EPIGASTRIC PAIN, NAUSEA Time Seen by Provider: 09/09/17 16:05 Mode of Arrival: Ambulatory Information source: Patient Notes: 57-year-old female was sent in by her primary care physician for evaluation by surgeon. Patient notes generalized abdominal pain that has been ongoing for a couple weeks associated with chronic diarrhea post gallbladder removal. Patient denies any fevers or chills notes she last ate 9:00 this morning. TRAVEL OUTSIDE OF THE [place] IN LAST 30 DAYS: No - HPI Onset: Other Onset/Duration: Persistent Quality of pain: Achy Severity: Mild Pain Level: 1 Associated symptoms: Nausea Exacerbated by: Denies Relieved by: Denies Similar symptoms previously: Yes Recently seen / treated by doctor: Yes - Related Data Allergies/Adverse Reactions: Penicillins Allergy (Severe, Verified 09/09/17 15:07) Anaphylactic shock sulfamethoxazole [From Septra] Allergy (Severe, Verified 09/09/17 15:07) Diarrhea trimethoprim [From Septra] Allergy (Severe, Verified 09/09/17 15:07) Diarrhea doxycycline [Doxycycline] Allergy (Intermediate, Verified 09/09/17 15:07) Generalized Itching levofloxacin [From Levaquin] Allergy (Intermediate, Verified 09/09/17 15:07) N&V Past Medical History - Social History Smoking Status: Never Smoker Cigarette use (# per day): No Chew tobacco use (# tins/day): No Smoking Education Provided: No Frequency of alcohol use: None Drug Abuse: None Family History: Arthritis, CAD, CVA, DM, Hyperlipidemia, Hypertension, Malignancy, Thyroid Disfunction Patient has suicidal ideation: No Patient has homicidal ideation: No - Past Medical History Cardiac Medical History: Reports: Hx Hypercholesterolemia, Hx Hypertension Denies: Hx Atrial Fibrillation, Hx Congestive Heart Failure, Hx Coronary Artery Disease, Hx DVT, Hx Heart Attack, Hx Pulmonary Embolism Pulmonary Medical History: Denies: Hx Asthma, Hx COPD, Hx Sleep Apnea Neurological Medical History: Reports: Hx Seizures Endocrine Medical History: Reports: Hx Diabetes Mellitus Type 2. Denies: Hx Diabetes Mellitus Type 1, Hx Hyperthyroidism, Hx Hypothyroidism Renal/ Medical History: Denies: Hx Peritoneal Dialysis GI Medical History: Reports: Hx Gastroesophageal Reflux Disease. Denies: Hx Cirrhosis, Hx Hepatitis Musculoskeltal Medical History: Reports Hx Arthritis Psychiatric Medical History: Reports: Hx Anxiety, Hx Attention Deficit Hyperactivity Disorder, Hx Depression Infectious Medical History: Denies: Hx Hepatitis Past Surgical History: Reports: Hx Abdominal Surgery - HERNIA, Hx Section, Hx Cholecystectomy, Hx Inguinal Hernia, Hx Neurologic Surgery - Vagal nerve stimulator, Hx Tubal Ligation, Other - Vagal nerve stimulator implant for seizure disorder - Immunizations Immunizations up to date: No Hx Diphtheria, Pertussis, Tetanus Vaccination: No Review of Systems - Review of Systems Notes: REVIEW OF SYSTEMS: CONSTITUTIONAL : Denies fever, chills, or sweats. Denies recent illness. EENT: Denies eye, ear, throat, or mouth pain or symptoms. Denies nasal or sinus congestion or discharge. Denies throat, tongue, or mouth swelling or difficulty swallowing. CARDIOVASCULAR: Denies chest pain. Denies palpitations or racing or irregular heart beat. Denies ankle edema. RESPIRATORY: Denies cough, cold, or chest congestion. Denies shortness of breath, difficulty breathing, or wheezing. GASTROINTESTINAL: Abdomen admits to generalized abdominal pain GENITOURINARY: Denies difficulty urinating, painful urination, burning, frequency, blood in urine, or discharge. FEMALE GENITOURINARY: Denies vaginal bleeding, heavy or abnormal periods, irregular periods. Denies vaginal discharge or odor. MUSCULOSKELETAL: Denies back or neck pain or stiffness. Denies joint pain or swelling. SKIN: Denies rash, lesions or sores. HEMATOLOGIC : Denies easy bruising or bleeding. LYMPHATIC: Denies swollen, enlarged glands. NEUROLOGICAL: Denies confusion or altered mental status. Denies passing out or loss of consciousness. Denies dizziness or lightheadedness. Denies headache. Denies weakness or paralysis or loss of use of either side. Denies problems with gait or speech. Denies sensory loss, numbness, or tingling. Denies seizures. PSYCHIATRIC: Denies anxiety or stress. Denies depression, suicidal ideation, or homicidal ideation. ALL OTHER SYSTEMS REVIEWED AND NEGATIVE. PHYSICAL EXAMINATION: GENERAL: Well-appearing, well-nourished and in no acute distress. HEAD: Atraumatic, normocephalic. EYES: Pupils equal round and reactive to light, extraocular movements intact, conjunctiva are normal. ENT: Nares patent, oropharynx clear without exudates. Moist mucous membranes. NECK: Normal range of motion, supple without lymphadenopathy LUNGS: Breath sounds clear to auscultation bilaterally and equal. No wheezes rales or rhonchi. HEART: Regular rate and rhythm without murmurs ABDOMEN: Soft, generalized tenderness and epigastric right upper quadrant by lower quadrant tenderness Female : deferred Musculoskeletal: Normal range of motion, no pitting or edema. No cyanosis. NEUROLOGICAL: Cranial nerves grossly intact. Normal speech, normal gait. Normal sensory, motor exams PSYCH: Normal mood, normal affect. SKIN: Warm, Dry, normal turgor, no rashes or lesions noted. Dictation was performed using [employer] voice recognition software Physical Exam - Vital signs Vitals: Temp Pulse Resp BP Pulse Ox 98.1 F 80 21 H 140/92 H 97 09/09/17 14:56 09/09/17 14:56 09/09/17 14:56 09/09/17 14:56 09/09/17 14:56 Course - Re-evaluation Re-evalutation: 09/09/17 19:21 Dr nassar will evaluate patient 09/10/17 00:53 Surgeon was evaluating patient and notes no signs of acute appendicitis, patient 's lab work notes no white count elevation and this was repeated from previous morning lab. The CT results given very ill-defined mass at the head of the appendix, patient already has an appointment to have a surgeon evaluate this on September 25 which I believe is appropriate. Surgeon today does not believe there is any life-threatening issues and wishes to discharge patient After performing a Medical Screening Examination, I estimate there is LOW risk for ACUTE APPENDICITIS, BOWEL OBSTRUCTION, ACUTE CHOLECYSTITIS, PERFORATED DIVERTICULITIS, INCARCERATED HERNIA, PANCREATITIS, PELVIC INFLAMMATORY DISEASE, PERFORATED ULCER, ECTOPIC , or TUBO-OVARIAN ABSCESS, thus I consider the discharge disposition reasonable. Also, there is no evidence or peritonitis , sepsis, or toxicity. I have reevaluated this patient multiple times and no significant life threatening changes are noted. The patient and I have discussed the diagnosis and risks, and we agree with discharging home with close follow-up with the understanding that symptoms and presentations can change. We also discussed returning to the Emergency Department immediately if new or worsening symptoms occur. We have discussed the symptoms which are most concerning (e.g., bloody stool, fever, changing or worsening pain, vomiting) that necessitate immediate return. - Vital Signs Vital signs: Temp Pulse Resp BP Pulse Ox 97.8 F 68 20 148/89 H 98 09/09/17 21:16 09/09/17 21:16 09/09/17 21:16 09/09/17 21:16 09/09/17 21:16 - Laboratory Result Diagrams: 09/09/17 19:23 09/09/17 19:23 Laboratory results interpreted by me: 09/09/17 09/09/17 19:23 19:23 RDW 15.0 H BUN 5 L Direct Bilirubin 0.5 H - Diagnostic Test Radiology reviewed: Image reviewed, Reports reviewed - Report reviewed Discharge - Discharge Clinical Impression: Abdominal pain Qualifiers: Abdominal location: generalized Qualified Code(s): R10.84 - Generalized abdominal pain Condition: Stable Disposition: HOME, SELF-CARE Instructions: Observation for Appendicitis ([facility]) Additional Instructions: Follow up with your physician tomorrow for further care or return to the ED IMMEDIATELY if symptoms worsen or new concerns occur. If you cannot afford to follow up with your primary care physician a list of low cost clinics have been provided at the end of your discharge papers as well. Prescriptions: Sucralfate [Carafate 1 gm Tablet] 1 gm PO ACHS #120 tablet
[2017-09-09 19:53] LABS: ABSOLUTE BASOPHILS # (AUTO) 0.2 10^3/uL (0.0-0.2); ABSOLUTE EOSINOPHILS # (AUTO) 0.4 10^3/uL (0.0-0.6); ABSOLUTE LYMPHOCYTES (AUTO) 3.3 10^3/uL (0.5-4.7); ABSOLUTE MONOCYTES (AUTO) 0.7 10^3/uL (0.1-1.4); ABSOLUTE NEUT (AUTO) 5.8 10^3/uL (1.7-8.2); BASOPHILS % (AUTO) 1.5 % (0-2); EOSINOPHILS % (AUTO) 3.8 % (0-6); HEMATOCRIT 37.1 % (36.0-47.0); HEMOGLOBIN 12.7 g/dL (12.0-15.5); MEAN CORPUSCULAR HEMOGLOBIN 29.8 pg (27.0-33.4); MEAN CORPUSCULAR HGB CONC 34.2 g/dL (32.0-36.0); MEAN CORPUSCULAR VOLUME 87 fl (80-97); RED BLOOD COUNT 4.26 10^6/uL (3.72-5.28); SEGMENTED NEUTROPHILS % (AUTO) 55.7 % (42-78); WHITE BLOOD COUNT 10.3 10^3/uL (4.0-10.5)
[2017-09-09 20:09] LABS: ALANINE AMINOTRANSFERASE 26 U/L (9-52); ALBUMIN 4.5 g/dL (3.5-5.0); ALKALINE PHOSPHATASE 89 U/L (38-126); ANION GAP 13 (5-19); ASPARTATE AMINO TRANSFERASE 26 U/L (14-36); BILIRUBIN,DIRECT 0.5 mg/dL (0.0-0.4); BILIRUBIN,TOTAL 0.6 mg/dL (0.2-1.3); BLOOD UREA NITROGEN 5 mg/dL (7-20); CALCIUM 9.7 mg/dL (8.4-10.2); CARBON DIOXIDE 27 mmol/L (22-30); CHLORIDE 100 mmol/L (98-107); CREATININE RESULT 0.62 mg/dL (0.52-1.25); GLUCOSE 92 mg/dL (75-110); POTASSIUM 4.2 mmol/L (3.6-5.0); SODIUM 140.4 mmol/L (137-145)
[2017-09-09 21:23] VITALS: BP 148/89
--- NOTE | 2017-09-09 21:48 | PDOC CONSULTATION ---
Consultation Consult Date: 09/09/17 Attending physician:: EMI RAVI Consult reason:: CT findings with prior history of appendicitis History of Present Illness Admission Date/PCP: 09/09/2017 Patient complains of: Epigastric pain, diarrhea History of Present Illness: DEVIN BECERRA is a 57 year old female who underwent laparoscopic cholecystectomy approximately 2 months prior. Within the last several weeks she has had complaints of epigastric pain with progressive worsening. This prompted workup outpatient revealing CT findings consistent with prior history of appendicitis. With generalized abdominal pain worsening over the last 4-5 days this prompted the patient being sent to ER for further assessment. Currently denying any fever, chest pain, shortness of breath. She does have complaints of epigastric pain and bilateral lower quadrant pain and diarrhea for the last 8 weeks, since prior to cholecystectomy. ER workup notes normal labs, per patient pain 2-3/10 of epigastric region. Past Medical History Cardiac Medical History: Reports: Hyperlipidema, Hypertension Denies: Atrial Fibrillation, Congestive Heart Failure, Coronary Artery Disease, DVT, Myocardial Infarction, Pulmonary Embolism Pulmonary Medical History: Denies: Asthma, Chronic Obstructive Pulmonary Disease (COPD), Sleep Apnea Neurological Medical History: Reports: Seizures Endocrine Medical History: Reports: Diabetes Mellitus Type 2 Denies: Diabetes Mellitus Type 1, Hyperthyroidism, Hypothyroidism GI Medical History: Reports: Gastroesophageal Reflux Disease Denies: Cirrhosis, Hepatitis Musculoskeltal Medical History: Reports: Arthritis Psychiatric Medical History: Reports: Attention Deficit Hyperactivity Disorder, Depression Hematology: Denies: Anemia Past Surgical History Past Surgical History: Reports: Section, Cholecystectomy, Tubal Ligation, Other - Vagal nerve stimulator implant for seizure disorder Social History Information Source: Patient Lives with: Family Smoking Status: Never Smoker Frequency of Alcohol Use: None Hx Recreational Drug Use: No Drugs: None Hx Prescription Drug Abuse: No Family History Family History: Arthritis, CAD, CVA, DM, Hyperlipidemia, Hypertension, Malignancy, Thyroid Disfunction Parental Family History Reviewed: Yes Children Family History Reviewed: Yes Sibling(s) Family History Reviewed.: Yes Medication/Allergy Home Medications: Atorvastatin Calcium [Lipitor 40 mg Tablet] 40 mg PO WSUPPER 07/09/17 Duloxetine HCl 30 mg PO QHS 07/09/17 Duloxetine HCl 60 mg PO QAM 07/09/17 Lorazepam [Ativan 0.5 mg Tablet] 0.5 mg PO Q8HP PRN 07/09/17 Metformin HCl [Glucophage] 1,000 mg PO Q12 07/09/17 Omeprazole 40 mg PO DAILY 07/09/17 Sucralfate [Carafate 1 gm Tablet] 1 gm PO ACHS 07/09/17 Trazodone HCl [Desyrel] 150 mg PO QHS 07/09/17 Zolpidem Tartrate 10 mg PO HSP PRN 07/09/17 Bisoprolol Fumarate [Zebeta 5 mg Tablet] 1 tab PO DAILY 07/10/17 Glimepiride [Amaryl] 2 mg PO DAILY 07/10/17 Lamotrigine [Lamictal 100 mg Tablet] 200 mg PO QID 07/10/17 Levetiracetam [Keppra 500 mg Tablet] 1,000 mg PO BID 07/10/17 Atenolol [Tenormin 50 mg Tablet] 50 mg PO DAILY tablet 07/11/17 Lamotrigine [Lamictal 100 mg Tablet] 200 mg PO QID tablet 07/11/17 Lansoprazole [Prevacid 30 mg Odt Tablet] 30 mg PO [id number] tab.rap. 07/11/17 Lorazepam [Ativan 0.5 mg Tablet] 0.5 mg PO Q8HP PRN tablet 07/11/17 Oxycodone HCl/Acetaminophen [Percocet 5-325 mg Tablet] 1 tab PO Q4HP PRN #20 tablet 07/11/17 Trazodone HCl [Desyrel 50 mg Tablet] 150 mg PO QHS tablet 07/11/17 Zolpidem Tartrate [Ambien 5 mg Tablet] 10 mg PO HSP PRN tablet 07/11/17 Sucralfate [Carafate 1 gm Tablet] 1 gm PO ACHS #120 tablet 09/09/17 Allergies/Adverse Reactions: Penicillins Allergy (Severe, Verified 09/09/17 15:07) Anaphylactic shock sulfamethoxazole [From Septra] Allergy (Severe, Verified 09/09/17 15:07) Diarrhea trimethoprim [From Septra] Allergy (Severe, Verified 09/09/17 15:07) Diarrhea doxycycline [Doxycycline] Allergy (Intermediate, Verified 09/09/17 15:07) Generalized Itching levofloxacin [From Levaquin] Allergy (Intermediate, Verified 09/09/17 15:07) N&V Review of Systems Constitutional: ABSENT: chills, fever(s), headache(s), weight gain, weight loss Eyes: ABSENT: visual disturbances Ears: ABSENT: hearing changes Cardiovascular: ABSENT: chest pain, dyspnea on exertion, edema, orthropnea, palpitations Respiratory: ABSENT: cough, hemoptysis Gastrointestinal: PRESENT: abdominal pain - epigastric pain, bloating, generalized pain, bloating. ABSENT: constipation, diarrhea, hematemesis, hematochezia, nausea, vomiting Genitourinary: ABSENT: dysuria, hematuria Musculoskeletal: ABSENT: joint swelling Integumentary: ABSENT: rash, wounds Neurological: ABSENT: abnormal gait, abnormal speech, confusion, dizziness, focal weakness, syncope Psychiatric: ABSENT: anxiety, depression, homidical ideation, suicidal ideation Endocrine: ABSENT: cold intolerance, heat intolerance, polydipsia, polyuria Hematologic/Lymphatic: ABSENT: easy bleeding, easy bruising Physical Exam Vital Signs: Temp Pulse Resp BP Pulse Ox 97.8 F 68 20 148/89 H 98 09/09/17 21:16 09/09/17 21:16 09/09/17 21:16 09/09/17 21:16 09/09/17 21:16 Intake & Output 09/08/17 09/09/17 09/10/17 06:59 06:59 06:59 Weight 106.3 kg General appearance: PRESENT: no acute distress, obese Eye exam: PRESENT: conjunctiva pink. ABSENT: conjunctival injection Mouth exam: PRESENT: moist, neck supple GI/Abdominal exam: PRESENT: soft, tenderness Neurological exam: PRESENT: alert, awake, oriented to person, oriented to place , oriented to time, CN II-XII grossly intact Results Laboratory Results: 09/09/17 19:23 09/09/17 19:23 09/09/17 09/09/17 19:23 19:23 WBC 10.3 RBC 4.26 Hgb 12.7 Hct 37.1 MCV 87 MCH 29.8 MCHC 34.2 RDW 15.0 H Plt Count 392 Seg Neutrophils % 55.7 Lymphocytes % 32.0 Monocytes % 7.0 Eosinophils % 3.8 Basophils % 1.5 Absolute Neutrophils 5.8 Absolute Lymphocytes 3.3 Absolute Monocytes 0.7 Absolute Eosinophils 0.4 Absolute Basophils 0.2 Sodium 140.4 Potassium 4.2 Chloride 100 Carbon Dioxide 27 Anion Gap 13 BUN 5 L Creatinine 0.62 Est GFR ( Amer) > 60 Est GFR (Non-Af Amer) > 60 Glucose 92 Calcium 9.7 Total Bilirubin 0.6 AST 26 ALT 26 Alkaline Phosphatase 89 Total Protein 8.0 Albumin 4.5 Assessment & Plan - Diagnosis (1) Bile reflux gastritis Is this a current diagnosis for this admission?: Yes Plan: Initiate carafate 1g po QID Follow up outpatient with prior appointment for assessment of appendicial changes, per radiology appears as prior history of appendicitis No pain focal to the area with normal labs With any worsened symptoms patient to represent to the ER
== END 2017-09-09 21:15 | disposition home or self-care (01) ==
LOC: ER 14:35
DX: R10.84 Generalized abdominal pain (principal); R10.13 Epigastric pain; R11.0 Nausea; R19.7 Diarrhea, unspecified
CPT/HCPCS: 99284; 96360; 36415; 85025; 80053; J7030

== ENCOUNTER → 2017-09-09 | Outpatient (CLI) | payer OTHER ==
[2017-09-09 13:21] LABS: ABSOLUTE BASOPHILS # (AUTO) 0.1 10^3/uL (0.0-0.2); ABSOLUTE EOSINOPHILS # (AUTO) 0.3 10^3/uL (0.0-0.6); ABSOLUTE LYMPHOCYTES (AUTO) 2.7 10^3/uL (0.5-4.7); ABSOLUTE MONOCYTES (AUTO) 0.7 10^3/uL (0.1-1.4); ABSOLUTE NEUT (AUTO) 6.4 10^3/uL (1.7-8.2); BASOPHILS % (AUTO) 0.9 % (0-2); EOSINOPHILS % (AUTO) 2.5 % (0-6); HEMATOCRIT 37.9 % (36.0-47.0); HEMOGLOBIN 12.6 g/dL (12.0-15.5); HGB HCT DIFFERENCE -0.1; LYMPHOCYTES % (AUTO) 26.3 % (13-45); MEAN CORPUSCULAR HEMOGLOBIN 28.9 pg (27.0-33.4); MEAN CORPUSCULAR HGB CONC 33.3 g/dL (32.0-36.0); MEAN CORPUSCULAR VOLUME 87 fl (80-97); MONOCYTES % (AUTO) 6.7 % (3-13); RED BLOOD COUNT 4.37 10^6/uL (3.72-5.28); RED CELL DISTRIBUTION WIDTH 14.4 % (11.5-14.0); SEGMENTED NEUTROPHILS % (AUTO) 63.6 % (42-78); WHITE BLOOD COUNT 10.1 10^3/uL (4.0-10.5)
[2017-09-09 13:42] LABS: ANION GAP 17 (5-19); BLOOD UREA NITROGEN 5 mg/dL (7-20); C-REACTIVE PROTEIN 12.6 mg/L (<10.0); CALCIUM 9.9 mg/dL (8.4-10.2); CARBON DIOXIDE 23 mmol/L (22-30); CHLORIDE 102 mmol/L (98-107); CREATININE RESULT 0.59 mg/dL (0.52-1.25); GLUCOSE 73 mg/dL (75-110); POTASSIUM 4.2 mmol/L (3.6-5.0); SODIUM 141.6 mmol/L (137-145)
[2017-09-09 14:19] LABS: ERYTHROCYTE SEDIMENTATION RATE 33 mm/hr (0-30)
== END ==
LOC: CCC 12:24
DX: R10.13 Epigastric pain (principal); E11.9 Type 2 diabetes mellitus without complications
CPT/HCPCS: 36415; 80048; 83605; 85025; 85652; 86140

== ENCOUNTER → 2017-10-15 | Outpatient (CLI) | payer OTHER ==
--- NOTE | 2017-10-15 10:34 | RADIOLOGY REPORT (SQ) ---
EXAM DESCRIPTION: CTA HEAD; CTA NECK COMPLETED DATE/TIME: 10/15/2017 8:03 am REASON FOR STUDY: TEMPORAL AND OCCIPITAL HEADACHES (R51) R51 HEADACHE COMPARISON: CT brain 02/24/2017, 10/18/2016, 06/29/2016, 12/11/2015 MRI brain 05/15/2015 TECHNIQUE: CT angio of the neck vessels was performed, from the level of the aortic arch through the skullbase. CT angio of the [place] was performed, with thin section axial imaging through the brain to evaluate the arterial structures. CT angio neck and CT angio [place] source and MIP images are saved and reviewed on PACS. Advanced 3D imaging as volume-rendering, MIPs, SSD performed? yes All CT scanners at this facility use dose modulation, iterative reconstruction, and/or weight based d osing when appropriate to reduce radiation dose to as low as reasonably achievable (ALARA). [facility]: Dose Right [facility]: CareDose [facility]: Dose Right [facility]: Teradose 4D [facility]: Smart [employer] CONTRAST TYPE AND DOSE: contrast/concentration: Isovue 370.00 mg/ml; Total Contrast Delivered: 80.0 ml; Total Saline Delivered: 75.0 ml RENAL FUNCTION: Creatinine 0.65 LIMITATIONS: None. FINDINGS: CT angio neck: Visualized aortic arch, proximal great vessels are widely patent. On the right side, the common carotid artery, carotid bifurcation, and cervical internal and external carotid arteries are widely patent. On the left side, the common carotid artery, carotid bifurcation, cervical internal and external trimble tid arteries are widely patent. The vertebral arteries are codominant and widely patent throughout the neck. Given history of nosebleeds, no hypervascular nasopharyngeal or nasal masses are identified. Soft tissues of the neck are unremarkable aside from scattered small nonpathologic lymph nodes, and a left-sided jugular neurostimulator with battery pack over the left upper chest. Paranasal sinuses c lear. Orbits and facial soft tissues are unremarkable. These are salivary glands are unremarkable. Visualized airway is patent. Lung apices are clear. Multilevel degenerative changes in the cervica l spine, with high-grade bilateral foraminal narrowing at C5-6 and C6-7 from facet and uncovertebral hypertrophy. Thyroid gland unremarkable. CT angio [place]: The anterior, middle, posterior cerebral arteries are all patent. No evidence of aneurysm or focal s tenosis. The distal vertebral arteries are patent as is the basilar artery. No aneurysm. Visualized brain is unremarkable. No abnormal masses or contrast enhancement. Brain parenchyma, ve ntricles, extra-axial CSF spaces are unremarkable. IMPRESSION: NO CTA EVIDENCE OF STENOSIS OR ANEURYSM OF THE [place]. NO CTA EVIDENCE OF CAROTID BIFURCATION STENOSIS. NO HYPERVASCULAR LESIONS ARE IDENTIFIED IN THE NASAL CAVITY OR NASOPHARYNX. TECHNICAL DOCUMENTATION: JOB ID: [id number] Quality ID # [id number]: Final reports with documentation of one or more dose reduction techniques (e.g., Au tomated exposure control, adjustment of the mA and/or kV according to patient size, use of iterative reconstruction technique) 2010 [employer]- All Rights Reserved
--- NOTE | 2017-10-15 10:34 | RADIOLOGY REPORT (SQ) ---
EXAM DESCRIPTION: CTA HEAD; CTA NECK COMPLETED DATE/TIME: 10/15/2017 8:03 am REASON FOR STUDY: TEMPORAL AND OCCIPITAL HEADACHES (R51) R51 HEADACHE COMPARISON: CT brain 02/24/2017, 10/18/2016, 06/29/2016, 12/11/2015 MRI brain 05/15/2015 TECHNIQUE: CT angio of the neck vessels was performed, from the level of the aortic arch through the skullbase. CT angio of the [place] was performed, with thin section axial imaging through the brain to evaluate the arterial structures. CT angio neck and CT angio [place] source and MIP images are saved and reviewed on PACS. Advanced 3D imaging as volume-rendering, MIPs, SSD performed? yes All CT scanners at this facility use dose modulation, iterative reconstruction, and/or weight based d osing when appropriate to reduce radiation dose to as low as reasonably achievable (ALARA). [facility]: Dose Right [facility]: CareDose [facility]: Dose Right [facility]: Teradose 4D [facility]: Smart [employer] CONTRAST TYPE AND DOSE: contrast/concentration: Isovue 370.00 mg/ml; Total Contrast Delivered: 80.0 ml; Total Saline Delivered: 75.0 ml RENAL FUNCTION: Creatinine 0.65 LIMITATIONS: None. FINDINGS: CT angio neck: Visualized aortic arch, proximal great vessels are widely patent. On the right side, the common carotid artery, carotid bifurcation, and cervical internal and external carotid arteries are widely patent. On the left side, the common carotid artery, carotid bifurcation, cervical internal and external trimble tid arteries are widely patent. The vertebral arteries are codominant and widely patent throughout the neck. Given history of nosebleeds, no hypervascular nasopharyngeal or nasal masses are identified. Soft tissues of the neck are unremarkable aside from scattered small nonpathologic lymph nodes, and a left-sided jugular neurostimulator with battery pack over the left upper chest. Paranasal sinuses c lear. Orbits and facial soft tissues are unremarkable. These are salivary glands are unremarkable. Visualized airway is patent. Lung apices are clear. Multilevel degenerative changes in the cervica l spine, with high-grade bilateral foraminal narrowing at C5-6 and C6-7 from facet and uncovertebral hypertrophy. Thyroid gland unremarkable. CT angio [place]: The anterior, middle, posterior cerebral arteries are all patent. No evidence of aneurysm or focal s tenosis. The distal vertebral arteries are patent as is the basilar artery. No aneurysm. Visualized brain is unremarkable. No abnormal masses or contrast enhancement. Brain parenchyma, ve ntricles, extra-axial CSF spaces are unremarkable. IMPRESSION: NO CTA EVIDENCE OF STENOSIS OR ANEURYSM OF THE [place]. NO CTA EVIDENCE OF CAROTID BIFURCATION STENOSIS. NO HYPERVASCULAR LESIONS ARE IDENTIFIED IN THE NASAL CAVITY OR NASOPHARYNX. TECHNICAL DOCUMENTATION: JOB ID: [id number] Quality ID # [id number]: Final reports with documentation of one or more dose reduction techniques (e.g., Au tomated exposure control, adjustment of the mA and/or kV according to patient size, use of iterative reconstruction technique) 2010 [employer]- All Rights Reserved
== END ==
LOC: RAD 07:19
DX: R51 Headache (principal); H53.8 Other visual disturbances; R04.0 Epistaxis
CPT/HCPCS: 70496; 70498

== ENCOUNTER → 2017-10-27 | Outpatient (CLI) | payer OTHER ==
--- NOTE | 2017-10-27 10:53 | RADIOLOGY REPORT (SQ) ---
EXAM DESCRIPTION: CT ABD/PELVIS WITH IV ORAL COMPLETED DATE/TIME: 10/27/2017 8:44 am REASON FOR STUDY: RLQ PAIN (R10.31) R10.31 RIGHT LOWER QUADRANT PAIN COMPARISON: 09/08/2017 TECHNIQUE: CT scan of the abdomen and pelvis performed using helical scanning technique with dynamic intravenous contrast injection. No oral contrast. Images reviewed with lung, soft tissue, and bone windows. Reconstructed coronal and sagittal MPR images reviewed. Delayed images for evaluation of the urinary system also acquired. All images stored on PACS. All CT scanners at this facility use dose modulation, iterative reconstruction, and/or weight based d osing when appropriate to reduce radiation dose to as low as reasonably achievable (ALARA). [facility]: Dose Right [facility]: CareDose [facility]: Dose Right [facility]: Teradose 4D [facility]: [employer] CONTRAST TYPE AND DOSE: contrast/concentration: Isovue 370.00 mg/ml; Total Contrast Delivered: 100.0 ml; Total Saline Delivered: 72.0 ml RENAL FUNCTION: Creatinine 0.6 RADIATION DOSE: CT Rad equipment meets quality standard of care and radiation dose reduction techniq ues were employed. CTDIvol: 17.6 - 18.4 mGy. DLP: 1940 mGy-cm.. LIMITATIONS: None. FINDINGS: LOWER CHEST: No significant findings. No nodules or infiltrates. LIVER: Normal size. No masses. No dilated ducts. SPLEEN: Normal size. No focal lesions. PANCREAS: No masses. No significant calcifications. No adjacent inflammation or peripancreatic fluid collections. Pancreatic duct not dilated. GALLBLADDER: Surgically absent. ADRENAL GLANDS: No significant masses or asymmetry. RIGHT KIDNEY AND URETER: No solid masses. No significant calcifications. No hydronephrosis or hyd roureter. LEFT KIDNEY AND URETER: No solid masses. No significant calcifications. No hydronephrosis or hydr oureter. AORTA AND VESSELS: No aneurysm. No dissection. Renal arteries, SMA, celiac without stenosis. RETROPERITONEUM: No retroperitoneal adenopathy, hemorrhage or masses. BOWEL AND PERITONEAL CAVITY: Diverticulosis is noted in the descending colon and sigmoid. No acute i nflammatory changes are present APPENDIX: The appendix appears to be normal, but just superior to the appendix in the retrocecal area there is a stable area of apparent inflammatory change. This is seen on the earlier study from is unchanged PELVIS: No mass. No free fluid. Normal bladder. ABDOMINAL WALL: No masses. No hernias. BONES: No significant or acute findings. OTHER: No other significant finding. IMPRESSION: 1. There is a limited area of inflammation versus scarring in the retrocecal area that may be associated with the tip of the appendix. This could conceivably represent chronic appendiciti s involving the tip or sequela of prior inflammation of the tip of the appendix. 2. Diverticulosis coli. TECHNICAL DOCUMENTATION: JOB ID: [id number] Quality ID # [id number]: Final reports with documentation of one or more dose reduction techniques (e.g., Au tomated exposure control, adjustment of the mA and/or kV according to patient size, use of iterative reconstruction technique) 2010 [employer]- All Rights Reserved
== END ==
LOC: RAD 07:42
DX: R10.31 Right lower quadrant pain (principal); R93.5 Abnormal findings on diagnostic imaging of other abdominal regions, including retroperitoneum; K57.30 Diverticulosis of large intestine without perforation or abscess without bleeding
CPT/HCPCS: 74177; 82565

== ENCOUNTER → 2017-11-05 | Outpatient (CLI) | payer OTHER ==
[2017-11-05 10:43] LABS: ABSOLUTE BASOPHILS # (AUTO) 0.1 10^3/uL (0.0-0.2); ABSOLUTE EOSINOPHILS # (AUTO) 0.1 10^3/uL (0.0-0.6); ABSOLUTE LYMPHOCYTES (AUTO) 2.2 10^3/uL (0.5-4.7); ABSOLUTE MONOCYTES (AUTO) 0.6 10^3/uL (0.1-1.4); ABSOLUTE NEUT (AUTO) 6.1 10^3/uL (1.7-8.2); EOSINOPHILS % (AUTO) 1.4 % (0-6); HEMATOCRIT 39.4 % (36.0-47.0); HEMOGLOBIN 13.1 g/dL (12.0-15.5); HGB HCT DIFFERENCE -0.1; LYMPHOCYTES % (AUTO) 23.9 % (13-45); MEAN CORPUSCULAR HEMOGLOBIN 28.6 pg (27.0-33.4); MEAN CORPUSCULAR HGB CONC 33.3 g/dL (32.0-36.0); MEAN CORPUSCULAR VOLUME 86 fl (80-97); MONOCYTES % (AUTO) 6.9 % (3-13); RED BLOOD COUNT 4.58 10^6/uL (3.72-5.28); RED CELL DISTRIBUTION WIDTH 15.1 % (11.5-14.0); SEGMENTED NEUTROPHILS % (AUTO) 66.8 % (42-78); WHITE BLOOD COUNT 9.1 10^3/uL (4.0-10.5)
[2017-11-05 11:14] LABS: ANION GAP 13 (5-19); BLOOD UREA NITROGEN 11 mg/dL (7-20); C-REACTIVE PROTEIN 6.9 mg/L (<10.0); CARBON DIOXIDE 26 mmol/L (22-30); CHLORIDE 101 mmol/L (98-107); CREATININE RESULT 0.69 mg/dL (0.52-1.25); GLUCOSE 132 mg/dL (75-110); POTASSIUM 4.7 mmol/L (3.6-5.0); SODIUM 140.1 mmol/L (137-145)
[2017-11-05 11:25] LABS: ERYTHROCYTE SEDIMENTATION RATE 26 mm/hr (0-30)
== END ==
LOC: CCC 10:00
DX: R19.7 Diarrhea, unspecified (principal); R93.5 Abnormal findings on diagnostic imaging of other abdominal regions, including retroperitoneum; E10.8 Type 1 diabetes mellitus with unspecified complications; R10.31 Right lower quadrant pain
CPT/HCPCS: 36415; 80048; 83605; 85025; 85652; 86140

== ENCOUNTER 2017-11-24 14:17 | Emergency (ER) | payer OTHER ==
[2017-11-24] MEDS ORDERED: PROCHLORPERAZINE MALEATE 10 MG TABLET PO ONE (15:17)
[2017-11-24] MEDS ORDERED: DIPHENHYDRAMINE HCL 50 MG CAPSULE PO ONE (15:17)
[2017-11-24] MEDS ORDERED: NAPROXEN 250 MG TABLET PO ONE (15:18)
--- NOTE | 2017-11-24 15:24 | ER Document Report ---
ED General - General Chief Complaint: Blood Pressure Problem Stated Complaint: BLOOD PRESSURE ISSUES Time Seen by Provider: 11/24/17 15:08 Mode of Arrival: Ambulatory Information source: Patient, [facility] Records Notes: This 57-year-old female patient was sent from her neurologist office for allegedly having a stroke level hypertension. She was in the office for reevaluation her chronic right temporal headaches. Her blood pressure is 140/82. She is quite upset about being sent here for a normal blood pressure. She does have a history of right temporal headache for the last several months. She reports her right temporal area feels like a burning nail was inserted and it will last anywhere from seconds to a few minutes. She has had CT scans, lab work testing looking for trigeminal neuralgia I suppose, temporal arteritis and other possibilities. TRAVEL OUTSIDE OF THE [place] IN LAST 30 DAYS: No - Related Data Allergies/Adverse Reactions: Penicillins Allergy (Severe, Verified 11/24/17 14:20) Anaphylactic shock sulfamethoxazole [From Septra] Allergy (Severe, Verified 11/24/17 14:20) Diarrhea trimethoprim [From Septra] Allergy (Severe, Verified 11/24/17 14:20) Diarrhea doxycycline [Doxycycline] Allergy (Intermediate, Verified 11/24/17 14:20) Generalized Itching levofloxacin [From Levaquin] Allergy (Intermediate, Verified 11/24/17 14:20) N&V coconut Allergy (Verified 11/24/17 14:20) Past Medical History - General Information source: Patient, [facility] Records - Social History Smoking Status: Never Smoker Cigarette use (# per day): No Chew tobacco use (# tins/day): No Smoking Education Provided: No Frequency of alcohol use: None Drug Abuse: None Occupation: Unemployed Lives with: Family Family History: Arthritis, CAD, CVA, DM, Hyperlipidemia, Hypertension, Malignancy, Thyroid Disfunction Patient has suicidal ideation: No Patient has homicidal ideation: No - Past Medical History Cardiac Medical History: Reports: Hx Hypercholesterolemia, Hx Hypertension Pulmonary Medical History: Reports: None EENT Medical History: Reports: None Neurological Medical History: Reports: Hx Seizures Endocrine Medical History: Reports: Hx Diabetes Mellitus Type 2 Renal/ Medical History: Reports: None GI Medical History: Reports: Hx Gastroesophageal Reflux Disease Musculoskeltal Medical History: Reports Hx Arthritis Psychiatric Medical History: Reports: Hx Anxiety, Hx Attention Deficit Hyperactivity Disorder, Hx Depression Past Surgical History: Reports: Hx Abdominal Surgery - HERNIA, Hx Section, Hx Cholecystectomy, Hx Inguinal Hernia, Hx Neurologic Surgery - Vagal nerve stimulator, Hx Tubal Ligation, Other - Vagal nerve stimulator implant for seizure disorder - Immunizations Immunizations up to date: No Hx Diphtheria, Pertussis, Tetanus Vaccination: No Review of Systems - Review of Systems Constitutional: No symptoms reported EENT: No symptoms reported Cardiovascular: No symptoms reported Respiratory: No symptoms reported Gastrointestinal: No symptoms reported Genitourinary: No symptoms reported Female Genitourinary: Post menopausal Musculoskeletal: No symptoms reported Skin: No symptoms reported Hematologic/Lymphatic: No symptoms reported Neurological/Psychological: See HPI, Headaches Physical Exam - Vital signs Vitals: Temp Pulse Resp BP Pulse Ox 98.1 F 88 16 140/82 H 97 11/24/17 14:25 11/24/17 14:25 11/24/17 14:25 11/24/17 14:25 11/24/17 14:25 Interpretation: Normal - General General appearance: Alert In distress: Mild - Patient seemed as much upset being sent here, as she is with the pain in her right sikhism head. - HEENT Head: Normocephalic, Atraumatic, Tenderness - She is very tender to palpate the right temporal artery region of her forehead. She is also tender outside of the arterial area but not quite as tender. Eyes: Normal Pupils: PERRL Neck: Supple - Neck is supple, however the right posterior cervical muscles are exquisitely tender to palpate. The left-sided posterior cervical muscles are not tender. - Respiratory Respiratory status: No respiratory distress Chest status: Nontender Breath sounds: Normal Chest palpation: Normal - Cardiovascular Rhythm: Regular Heart sounds: Normal auscultation Murmur: No - Abdominal Inspection: Normal Bowel sounds: Normal Tenderness: Nontender - Back Back: Normal - Extremities General upper extremity: Normal inspection General lower extremity: Normal inspection - Neurological Neuro grossly intact: Yes - Psychological Associated symptoms: Anxious, Depressed - Skin Skin Temperature: Warm Skin Moisture: Dry Skin Color: Normal Course - Re-evaluation Re-evalutation: 11/24/17 16:43 Patient's headache is not completely gone, but she states it is considerably better than earlier and she is comfortable going home at this time. I reviewed the medication regimen we used, will prescribe her Compazine, she can sweet pickle maker Aleve and generic Benadryl [id number] to treat these headaches if the come back. - Vital Signs Vital signs: Temp Pulse Resp BP Pulse Ox 98.1 F 88 16 140/82 H 97 11/24/17 14:25 11/24/17 14:25 11/24/17 14:25 11/24/17 14:25 11/24/17 14:25 Discharge - Discharge Clinical Impression: Muscle tension headache Condition: Stable Disposition: HOME, SELF-CARE Additional Instructions: Tension Headache Your problem has been diagnosed as muscle tension headache. This very common type of headache occurs because of tightness in the muscles of the head and neck. The cause may be neck or jaw joint problems, but most commonly the cause is emotional stress. The headache may last hours or days. The treatment of uncomplicated tension headaches is rest and pain medication. Often, the newer antiinflammatory pain medications are prescribed, as these also decrease the irritability of the painful tissues. Muscle relaxers , cold packs, or warm packs are sometimes helpful. Anti-anxiety medication or narcotics are sometimes needed temporarily, but are best avoided in the long run. Your doctor has evaluated your headache problem, and finds no evidence of a serious health problem as a cause for the headache. If your headache becomes more severe, or if new symptoms develop (such as fever, stiff neck, vomiting, or decreasing alertness) you should be re-examined by the physician. //////////////////////////////////////////////////////////////////////////////// //////////////////////////////////////////////////////////////////////////////// ///////// Try ice packs, seat, or alternating the 2 on your right painful neck and scalp muscles. Try taking the Compazine as prescribed with one Benadryl and 2 Aleve for headache every 6-8 hours if needed. Drink plenty fluids and rest in a cool, quiet, dark space today. Follow-up with your doctor if not improving. RETURN TO THE EMERGENCY ROOM IF ANY NEW OR WORSENING SYMPTOMS. Prescriptions: Prochlorperazine Maleate [Compazine 10 mg Tablet] 10 mg PO ASDIR PRN #10 tablet PRN Reason:
[2017-11-24 17:04] VITALS: BP 140/89
== END 2017-11-24 17:04 | disposition home or self-care (01) ==
LOC: ER 14:17
DX: G44.209 Tension-type headache, unspecified, not intractable (principal); R03.0 Elevated blood-pressure reading, without diagnosis of hypertension
CPT/HCPCS: 99283; S0183

== ENCOUNTER 2017-12-15 12:44 | Emergency (ER) | payer SELFPAY ==
[2017-12-15] MEDS ORDERED: NORMAL SALINE 1000 ML 1,000 ML IV ONE (14:19)
--- NOTE | 2017-12-15 14:25 | ER Document Report ---
ED Medical Screen (RME) <SAMARA PRESCOTT - Last Filed: 12/15/17 17:12> - General TRAVEL OUTSIDE OF THE [place] IN LAST 30 DAYS: No <SEJALJUSTIN Angulo - Last Filed: 12/15/17 19:31> - General Chief Complaint: Anxiety Stated Complaint: ANXIETY Time Seen by Provider: 12/15/17 13:59 Notes: Patient presents with multiple complaints. Patient states that she tripped over her feet yesterday striking her head on the floor. She also has left shoulder pain as a result. states that she was in her normal state of mind yesterday. Today he found her on the floor and was acting altered. She stated that she has vague memory of how she got there. She complains of a severe headache. She states she has been under more stress than normal. She also states she has been having cough and congestion and copious amounts of nonbloody diarrhea since yesterday. (JUSTIN POST) - Related Data Allergies/Adverse Reactions: Penicillins Allergy (Severe, Verified 11/24/17 14:20) Anaphylactic shock sulfamethoxazole [From Septra] Allergy (Severe, Verified 11/24/17 14:20) Diarrhea trimethoprim [From Septra] Allergy (Severe, Verified 11/24/17 14:20) Diarrhea doxycycline [Doxycycline] Allergy (Intermediate, Verified 11/24/17 14:20) Generalized Itching levofloxacin [From Levaquin] Allergy (Intermediate, Verified 11/24/17 14:20) N&V coconut Allergy (Verified 11/24/17 14:20) Past Medical History - General Information source: Patient, Relative - Social History Chew tobacco use (# tins/day): No Frequency of alcohol use: None Drug Abuse: None - Past Medical History Cardiac Medical History: Reports: Hx Hypercholesterolemia, Hx Hypertension Pulmonary Medical History: Neurological Medical History: Reports: Hx Seizures Endocrine Medical History: Reports: Hx Diabetes Mellitus Type 2 Renal/ Medical History: Denies: Hx Peritoneal Dialysis GI Medical History: Reports: Hx Gastroesophageal Reflux Disease Musculoskeltal Medical History: Reports Hx Arthritis Psychiatric Medical History: Reports: Hx Anxiety, Hx Attention Deficit Hyperactivity Disorder, Hx Depression Past Surgical History: Reports: Hx Abdominal Surgery - HERNIA, Hx Section, Hx Cholecystectomy, Hx Inguinal Hernia, Hx Neurologic Surgery - Vagal nerve stimulator, Hx Tubal Ligation, Other - Vagal nerve stimulator implant for seizure disorder - Immunizations Immunizations up to date: No Hx Diphtheria, Pertussis, Tetanus Vaccination: No History of Influenza Vaccine for 08/2017 - 01/2018 Season: Yes <SEJALJUSTIN Angulo - Last Filed: 12/15/17 19:31> Review of Systems - Review of Systems Constitutional: No symptoms reported, Weakness EENT: No symptoms reported Cardiovascular: No symptoms reported Respiratory: Cough Gastrointestinal: No symptoms reported Genitourinary: No symptoms reported Female Genitourinary: No symptoms reported Musculoskeletal: Other - L shoulder pain Skin: No symptoms reported Hematologic/Lymphatic: No symptoms reported Neurological/Psychological: Confusion, Headaches <SEJALJUSTIN Angulo - Last Filed: 12/15/17 19:31> Physical Exam - General General appearance: Appears well, Anxious - HEENT Head: Normocephalic, Atraumatic - Respiratory Respiratory status: No respiratory distress Chest status: Nontender - Cardiovascular Rhythm: Regular Heart sounds: Normal auscultation - Extremities Shoulder: Tender - L shoulder TTP and movement - Neurological Neuro grossly intact: Yes - Psychological Associated symptoms: Anxious <JUSTIN POST Kev - Last Filed: 12/15/17 19:31> - Vital signs Vitals: Temp Pulse Resp BP Pulse Ox 98.4 F 91 20 143/109 H 96 12/15/17 12:52 12/15/17 12:52 12/15/17 12:52 12/15/17 12:52 12/15/17 12:52 Course - Laboratory Result Diagrams: 12/15/17 14:31 12/15/17 14:31 <SAMARA PRESCOTT - Last Filed: 12/15/17 17:12> - Laboratory Result Diagrams: 12/15/17 14:31 12/15/17 14:31 <JUSTIN POST Kev - Last Filed: 12/15/17 19:31> - Vital Signs Vital signs: Temp Pulse Resp BP Pulse Ox 98.7 F 88 18 129/104 H 99 12/15/17 18:20 12/15/17 18:20 12/15/17 18:20 12/15/17 18:20 12/15/17 18:20 - Laboratory Laboratory results interpreted by me: 12/15/17 12/15/17 12/15/17 14:31 14:31 14:31 WBC 14.6 H RBC 5.52 H RDW 14.8 H Plt Count 452 H Absolute Neutrophils 10.3 H Glucose 137 H Calcium 11.0 H Direct Bilirubin 0.5 H AST 43 H Total Protein 9.4 H Albumin 5.4 H Urine Protein 100 H Urine Ketones TRACE H Ur Leukocyte Esterase LARGE H Doctor's Discharge <SAMARA PRESCOTT Von - Last Filed: 12/15/17 17:12> <SEJALJUSTIN Kev - Last Filed: 12/15/17 19:31> - Discharge Clinical Impression: Hypoventilation syndrome Urinary tract infection Qualifiers: Urinary tract infection type: site unspecified Hematuria presence: without hematuria Qualified Code(s): N39.0 - Urinary tract infection, site not specified Condition: Good Disposition: HOME, SELF-CARE Instructions: Anxiety ([facility]), Urinary Tract Infection ([facility]) Additional Instructions: Hyperventilation You have had an episode of hyperventilation. The symptoms occur because rapid breathing changes the body's chemical balance. Hyperventilation causes dizziness, numbness (particularly of the hands and face), chest pain, muscle spasms, and anxiety. Once an episode begins, it's extremely difficult to control the "need" to breathe rapidly. Hyperventilation may be provoked by drug effects, nausea, or illness, but is often due to anxiety. If no specific cause for the problem was found, treatment for anxiety may be necessary. Once the chemical changes have occurred, the hyperventilation is likely to recur. If you feel the symptoms again, rebreathe your air with a paper bag for several minutes. Sometimes hyperventilation is a symptom of an underlying metabolic or lung problem. If new symptoms develop (such as productive cough, fever, or chest pain), or if you are unable to get relief with rebreathing your exhaled air, call the physician. Anxiety The physician feels that some of your health problems are being caused by anxiety. Anxiety affects your health in many ways. Anxiety alone can cause palpitations, sweats, chest pains, abdominal pains, shortness of breath, and headaches. It contributes to ulcer disease, high blood pressure, irritable bowel syndrome, and has been shown to cause flare-ups of many other diseases. Anxiety is not a simple disorder to treat. If the anxiety is due to recent life stresses, you may simply need time to "work through" the changes. If the anxiety is due to an underlying unhappiness with yourself or due to psychiatric disturbance, professional help will be needed. Your physician can refer you for further help if needed. Anti-anxiety medication is occasionally given if the stress is acute or if you are having trouble sleeping. Chronic or frequent use of these medications is not a good idea because the body becomes reliant on it, preventing you from dealing with life's normal stresses. Urinary Tract Infection Your evaluation indicates that you have a urinary tract infection. This is due to germs growing in the bladder. This is a common problem. This infection usually responds quickly to antibiotics. Your antibiotic should be taken exactly as prescribed. Drink plenty of fluids -- three to four quarts a day. Occasionally, a bladder anesthetic will be prescribed to help stop the feeling of urgency until the antibiotic has a chance to clear the infection. This may cause your urine to be dark orange. Certain urine infections require a culture. If the doctor obtained a culture, the results will be back in two days. You should call to see if a change in treatment is needed. A repeat urinalysis after you finish treatment is often recommended. The physician will let you know if further testing is required. Call the doctor if you develop fever, chills, flank pain, inability to urinate, or blood in the urine. Prescriptions: Trazodone HCl 100 mg PO QHS 30 Days #30 tablet Duloxetine HCl 20 mg PO DAILY 30 Days #30 capsule. Lorazepam [Ativan 1 mg Tablet] 1 mg PO BID 15 Days #30 tab Nitrofurantoin/Nitrofuran Mac [Macrobid 100 mg Capsule] 1 tab PO BID #20 capsule
[2017-12-15 14:58] LABS: ABSOLUTE BASOPHILS # (AUTO) 0.1 10^3/uL (0.0-0.2); ABSOLUTE EOSINOPHILS # (AUTO) 0.1 10^3/uL (0.0-0.6); ABSOLUTE LYMPHOCYTES (AUTO) 3.1 10^3/uL (0.5-4.7); ABSOLUTE NEUT (AUTO) 10.3 10^3/uL (1.7-8.2); BASOPHILS % (AUTO) 0.6 % (0-2); EOSINOPHILS % (AUTO) 0.5 % (0-6); HEMATOCRIT 46.4 % (36.0-47.0); HEMOGLOBIN 15.5 g/dL (12.0-15.5); LYMPHOCYTES % (AUTO) 21.3 % (13-45); MEAN CORPUSCULAR HEMOGLOBIN 28.1 pg (27.0-33.4); MEAN CORPUSCULAR HGB CONC 33.4 g/dL (32.0-36.0); MEAN CORPUSCULAR VOLUME 84 fl (80-97); MONOCYTES % (AUTO) 7.2 % (3-13); PLATELET COUNT 452 10^3/uL (150-450); RED BLOOD COUNT 5.52 10^6/uL (3.72-5.28); RED CELL DISTRIBUTION WIDTH 14.8 % (11.5-14.0); SEGMENTED NEUTROPHILS % (AUTO) 70.4 % (42-78); TOTAL CELLS COUNTED % (AUTO) 100 %; WHITE BLOOD COUNT 14.6 10^3/uL (4.0-10.5)
[2017-12-15 15:13] LABS: AMORPHOUS SEDIMENT,URINE TRACE /HPF; APPEARANCE,URINE CLOUDY; BILIRUBIN,URINE NEGATIVE (NEGATIVE); COLOR,URINE YELLOW; GLUCOSE, URINE NEGATIVE (NEGATIVE); KETONES,URINE TRACE mg/dL (NEGATIVE); LEUKOCYTE ESTERASE,URINE LARGE (NEGATIVE); NITRITE,URINE NEGATIVE (NEGATIVE); PROTEIN,URINE 100 mg/dL (NEGATIVE); URINE SPECIFIC GRAVITY 1.012; UROBILINOGEN,URINE NEGATIVE mg/dL (<2.0)
[2017-12-15 15:20] LABS: ALANINE AMINOTRANSFERASE 38 U/L (9-52); ALBUMIN 5.4 g/dL (3.5-5.0); ALKALINE PHOSPHATASE 87 U/L (38-126); ANION GAP 16 (5-19); ASPARTATE AMINO TRANSFERASE 43 U/L (14-36); BILIRUBIN,DIRECT 0.5 mg/dL (0.0-0.4); BILIRUBIN,TOTAL 0.6 mg/dL (0.2-1.3); BLOOD UREA NITROGEN 9 mg/dL (7-20); CARBON DIOXIDE 22 mmol/L (22-30); CHLORIDE 106 mmol/L (98-107); GLUCOSE 137 mg/dL (75-110); POTASSIUM 4.2 mmol/L (3.6-5.0); SODIUM 143.6 mmol/L (137-145); TOTAL PROTEIN 9.4 g/dL (6.3-8.2)
[2017-12-15 15:25] LABS: URINE AMPHETAMINES SCREEN NEGATIVE; URINE BARBITURATES SCREEN NEGATIVE; URINE BENZODIAZEPINES SCREEN NEGATIVE; URINE COCAINE SCREEN NEGATIVE; URINE MARIJUANA (THC) SCREEN NEGATIVE; URINE METHADONE SCREEN NEGATIVE; URINE PHENCYCLIDINE SCREEN NEGATIVE
--- NOTE | 2017-12-15 15:33 | RADIOLOGY REPORT (SQ) ---
EXAM DESCRIPTION: CT HEAD WITHOUT COMPLETED DATE/TIME: 12/15/2017 3:13 pm REASON FOR STUDY: fall from standing, disoriented COMPARISON: 10/15/2017 TECHNIQUE: Axial images acquired through the brain without intravenous contrast. Images reviewed wi th bone, brain and subdural windows. Images stored on PACS. All CT scanners at this facility use dose modulation, iterative reconstruction, and/or weight based d osing when appropriate to reduce radiation dose to as low as reasonably achievable (ALARA). [facility]: Dose Right [facility]: CareDose [facility]: Dose Right [facility]: Teradose 4D [facility]: LCO [employer] RADIATION DOSE: CT Rad equipment meets quality standard of care and radiation dose reduction techniq ues were employed. CTDIvol: 59.9 mGy. DLP: 1034 mGy-cm. mGy. LIMITATIONS: None. FINDINGS: VENTRICLES: Normal size and contour. CEREBRUM: No masses. No hemorrhage. No midline shift. No evidence for acute infarction. Normal gra y/white matter differentiation. No areas of low density in the white matter. CEREBELLUM: No masses. No hemorrhage. No alteration of density. No evidence for acute infarction. EXTRAAXIAL SPACES: No fluid collections. No masses. ORBITS AND GLOBE: No intra- or extraconal masses. Normal contour of globe without masses. CALVARIUM: No fracture. PARANASAL SINUSES: No fluid or mucosal thickening. SOFT TISSUES: No mass or hematoma. OTHER: No other significant finding. IMPRESSION: NORMAL BRAIN CT WITHOUT CONTRAST. EVIDENCE OF ACUTE STROKE: NO. COMMENT: Quality ID # [id number]: Final reports with documentation of one or more dose reduction techniques (e.g., Automated exposure control, adjustment of the mA and/or kV according to patient size, use of iterative reconstruction technique) TECHNICAL DOCUMENTATION: JOB ID: [id number] 3000 [employer]- All Rights Reserved
--- NOTE | 2017-12-15 15:35 | RADIOLOGY REPORT (SQ) ---
EXAM DESCRIPTION: CHEST SINGLE VIEW COMPLETED DATE/TIME: 12/15/2017 3:26 pm REASON FOR STUDY: cough COMPARISON: 2017. NUMBER OF VIEWS: One view. TECHNIQUE: Single frontal radiographic view of the chest acquired. LIMITATIONS: None. FINDINGS: LUNGS AND PLEURA: No opacities, masses or pneumothorax. No pleural effusion. MEDIASTINUM AND HILAR STRUCTURES: No masses. Contour normal. HEART AND VASCULAR STRUCTURES: Heart normal in size. Normal vasculature. BONES: No acute findings. HARDWARE: Electronic stimulator device over the left chest with lead projecting up into the neck. OTHER: No other significant finding. IMPRESSION: NO SIGNIFICANT RADIOGRAPHIC FINDING IN THE CHEST. TECHNICAL DOCUMENTATION: JOB ID: [id number] [employer]- All Rights Reserved
--- NOTE | 2017-12-15 15:40 | RADIOLOGY REPORT (SQ) ---
EXAM DESCRIPTION: SHOULDER LEFT 2 OR MORE VIEWS COMPLETED DATE/TIME: 12/15/2017 3:26 pm REASON FOR STUDY: left shoulder pain s/p fall from standing COMPARISON: None. NUMBER OF VIEWS: Three views left shoulder. LIMITATIONS: None. FINDINGS: There is no acute or significant bone, joint or soft tissue abnormality. OTHER: No other significant finding. IMPRESSION: NORMAL STUDY. TECHNICAL DOCUMENTATION: JOB ID: [id number]
[2017-12-15] MEDS ORDERED: NITROFURANTOIN MONOHYD/M-CRYST 100 MG CAPSULE PO ONE (16:35)
[2017-12-15] MEDS ORDERED: LORAZEPAM INJ 2 MG/1 ML VIAL IV ONE (16:35)
--- NOTE | 2017-12-15 16:37 | ER Document Report ---
ED General - General Chief Complaint: Anxiety Stated Complaint: ANXIETY Time Seen by Provider: 12/15/17 13:59 Notes: 57-year-old female patient to the emergency department chief complaint of altered mental status. Patient states that she has been under extreme amount of stress. Suffers from depression, anxiety, seizure disorders. States that today she was feeling overwhelmed. Began panicking. States that she felt numbness of her fingers and face. Almost blacked out. arrived to find patient panicky. Seemed very rigid but was not seizing. EMS arrived. EMS placed an IV. Has any chest pain. No other issues at this time peer's are getting better. Patient states that she has not been able to take her regular medications due to financial problems. States that she is under a lot of stress in the family has been under a lot of stress. Patient denies any suicidal ideation. Does admit to depression. Was on duloxetine but has not taken it in a while because she ran out. Continues to take her Keppra as well as her lamotrigine TRAVEL OUTSIDE OF THE [place] IN LAST 30 DAYS: No - HPI Onset: Just prior to arrival Onset/Duration: Gradual Severity: Moderate Associated symptoms: None Exacerbated by: Denies - Related Data Allergies/Adverse Reactions: Penicillins Allergy (Severe, Verified 11/24/17 14:20) Anaphylactic shock sulfamethoxazole [From Septra] Allergy (Severe, Verified 11/24/17 14:20) Diarrhea trimethoprim [From Septra] Allergy (Severe, Verified 11/24/17 14:20) Diarrhea doxycycline [Doxycycline] Allergy (Intermediate, Verified 11/24/17 14:20) Generalized Itching levofloxacin [From Levaquin] Allergy (Intermediate, Verified 11/24/17 14:20) N&V coconut Allergy (Verified 11/24/17 14:20) Past Medical History - General Information source: Patient, Relative - Social History Smoking Status: Never Smoker Chew tobacco use (# tins/day): No Frequency of alcohol use: None Drug Abuse: None Lives with: Spouse/Significant other Family History: Arthritis, CAD, CVA, DM, Hyperlipidemia, Hypertension, Malignancy, Thyroid Disfunction Patient has suicidal ideation: No Patient has homicidal ideation: No - Past Medical History Cardiac Medical History: Reports: Hx Hypercholesterolemia, Hx Hypertension Pulmonary Medical History: Neurological Medical History: Reports: Hx Seizures Endocrine Medical History: Reports: Hx Diabetes Mellitus Type 2 Renal/ Medical History: Denies: Hx Peritoneal Dialysis GI Medical History: Reports: Hx Gastroesophageal Reflux Disease Musculoskeltal Medical History: Reports Hx Arthritis Psychiatric Medical History: Reports: Hx Anxiety, Hx Attention Deficit Hyperactivity Disorder, Hx Depression Past Surgical History: Reports: Hx Abdominal Surgery - HERNIA, Hx Section, Hx Cholecystectomy, Hx Inguinal Hernia, Hx Neurologic Surgery - Vagal nerve stimulator, Hx Tubal Ligation, Other - Vagal nerve stimulator implant for seizure disorder - Immunizations Immunizations up to date: No Hx Diphtheria, Pertussis, Tetanus Vaccination: No Review of Systems - Review of Systems Constitutional: denies: Chills, Diaphoresis, Fever, Malaise, Weakness EENT: Blurred vision. denies: Eye pain, Eye discharge, Throat pain, Difficulty swallowing, Mouth pain, Mouth swelling Cardiovascular: Heart racing, Dizziness, Lightheaded. denies: Chest pain, Palpitations, Dyspnea, Syncope, Edema Respiratory: denies: Cough, Hurts to breathe, Short of breath, Wheezing Gastrointestinal: denies: Abdominal pain, Diarrhea, Nausea, Vomiting Genitourinary: denies: Burning, Dysuria, Discharge, Flank pain, Hematuria Musculoskeletal: denies: Back pain, Gout, Joint pain, Muscle pain, Muscle stiffness, Neck pain Skin: denies: Change in color, Dryness, Lesions, Rash Neurological/Psychological: Confusion, Depression, Anxiety, Seizure, Numbness. denies: Weakness, Suicidal ideation Physical Exam - Vital signs Vitals: Temp Pulse Resp BP Pulse Ox 98.4 F 91 20 143/109 H 96 12/15/17 12:52 12/15/17 12:52 12/15/17 12:52 12/15/17 12:52 12/15/17 12:52 Interpretation: Normal - General General appearance: Appears well, Alert, Anxious, Other - Patient crying. Very tearful and agitated - HEENT Head: Normocephalic, Atraumatic Eyes: Normal Pupils: PERRL - Respiratory Respiratory status: No respiratory distress Chest status: Nontender Breath sounds: Normal Chest palpation: Normal - Cardiovascular Rhythm: Regular Heart sounds: Normal auscultation Murmur: No - Abdominal Inspection: Normal Distension: No distension Bowel sounds: Normal Tenderness: Nontender Organomegaly: No organomegaly - Back Back: Normal, Nontender - Extremities General upper extremity: Normal inspection, Nontender, Normal color, Normal ROM , Normal temperature General lower extremity: Normal inspection, Nontender, Normal color, Normal ROM , Normal temperature, Normal weight bearing. No: Cheri's sign - Neurological Neuro grossly intact: Yes Cognition: Normal Orientation: AAOx4 Tello Coma Scale Eye Opening: Spontaneous Tello Coma Scale Verbal: Oriented Onset Coma Scale Motor: Obeys Commands Onset Coma Scale Total: 15 Speech: Normal Motor strength normal: LUE, RUE, LLE, RLE Sensory: Normal - Psychological Associated symptoms: Anxious, Depressed, Tearful - Skin Skin Temperature: Warm Skin Moisture: Dry Skin Color: Normal Course - Re-evaluation Re-evalutation: 12/15/17 16:57 CT head, chest, shoulder, labs unremarkable with exception of a UTI. Will give patient some Ativan and some Macrobid at this time. I do not feel this represents an acute stroke or other more life-threatening conditions. More likely represents hyperventilatory syndrome based on the fact that patient had numbness to her face and hands with spasms and was extremely anxious. Patient has been observed here in the ER for several hours with no other issues or worsening complaints. - Vital Signs Vital signs: Temp Pulse Resp BP Pulse Ox 98.4 F 91 20 143/109 H 96 12/15/17 12:52 12/15/17 12:52 12/15/17 12:52 12/15/17 12:52 12/15/17 12:52 - Laboratory Result Diagrams: 12/15/17 14:31 12/15/17 14:31 Laboratory results interpreted by me: 12/15/17 12/15/17 12/15/17 14:31 14:31 14:31 WBC 14.6 H RBC 5.52 H RDW 14.8 H Plt Count 452 H Absolute Neutrophils 10.3 H Glucose 137 H Calcium 11.0 H Direct Bilirubin 0.5 H AST 43 H Total Protein 9.4 H Albumin 5.4 H Urine Protein 100 H Urine Ketones TRACE H Ur Leukocyte Esterase LARGE H Discharge - Discharge Clinical Impression: Hypoventilation syndrome Urinary tract infection Qualifiers: Urinary tract infection type: site unspecified Hematuria presence: without hematuria Qualified Code(s): N39.0 - Urinary tract infection, site not specified Condition: Good Disposition: HOME, SELF-CARE Instructions: Anxiety ([facility]), Urinary Tract Infection ([facility]) Additional Instructions: Hyperventilation You have had an episode of hyperventilation. The symptoms occur because rapid breathing changes the body's chemical balance. Hyperventilation causes dizziness, numbness (particularly of the hands and face), chest pain, muscle spasms, and anxiety. Once an episode begins, it's extremely difficult to control the "need" to breathe rapidly. Hyperventilation may be provoked by drug effects, nausea, or illness, but is often due to anxiety. If no specific cause for the problem was found, treatment for anxiety may be necessary. Once the chemical changes have occurred, the hyperventilation is likely to recur. If you feel the symptoms again, rebreathe your air with a paper bag for several minutes. Sometimes hyperventilation is a symptom of an underlying metabolic or lung problem. If new symptoms develop (such as productive cough, fever, or chest pain), or if you are unable to get relief with rebreathing your exhaled air, call the physician. Anxiety The physician feels that some of your health problems are being caused by anxiety. Anxiety affects your health in many ways. Anxiety alone can cause palpitations, sweats, chest pains, abdominal pains, shortness of breath, and headaches. It contributes to ulcer disease, high blood pressure, irritable bowel syndrome, and has been shown to cause flare-ups of many other diseases. Anxiety is not a simple disorder to treat. If the anxiety is due to recent life stresses, you may simply need time to "work through" the changes. If the anxiety is due to an underlying unhappiness with yourself or due to psychiatric disturbance, professional help will be needed. Your physician can refer you for further help if needed. Anti-anxiety medication is occasionally given if the stress is acute or if you are having trouble sleeping. Chronic or frequent use of these medications is not a good idea because the body becomes reliant on it, preventing you from dealing with life's normal stresses. Urinary Tract Infection Your evaluation indicates that you have a urinary tract infection. This is due to germs growing in the bladder. This is a common problem. This infection usually responds quickly to antibiotics. Your antibiotic should be taken exactly as prescribed. Drink plenty of fluids -- three to four quarts a day. Occasionally, a bladder anesthetic will be prescribed to help stop the feeling of urgency until the antibiotic has a chance to clear the infection. This may cause your urine to be dark orange. Certain urine infections require a culture. If the doctor obtained a culture, the results will be back in two days. You should call to see if a change in treatment is needed. A repeat urinalysis after you finish treatment is often recommended. The physician will let you know if further testing is required. Call the doctor if you develop fever, chills, flank pain, inability to urinate, or blood in the urine. Prescriptions: Duloxetine HCl 20 mg PO DAILY 30 Days #30 capsule. Lorazepam [Ativan 1 mg Tablet] 1 mg PO BID 15 Days #30 tab
[2017-12-15 18:27] VITALS: BP 129/104
--- NOTE | 2017-12-15 18:40 | EKG REPORT ---
SEVERITY:- ABNORMAL ECG - SINUS TACHYCARDIA PROBABLE LEFT ATRIAL ABNORMALITY LVH WITH SECONDARY REPOLARIZATION ABNORMALITY : Confirmed by: Zane Rodriguez MD 15-Dec-2017 18:39:38
== END 2017-12-15 18:20 | disposition home or self-care (01) ==
LOC: ER 12:44
DX: N39.0 Urinary tract infection, site not specified (principal); R06.89 Other abnormalities of breathing; F41.9 Anxiety disorder, unspecified; F32.9 Major depressive disorder, single episode, unspecified
CPT/HCPCS: 93005; 99284; 36415; 87086; 85025; 87088; 80053; 81001; 84484; 87186; 80307; 71045; 73030; 70450; 93010; J2060; J7030; J8499

== ENCOUNTER 2018-04-22 08:36 | Emergency (ER) | payer OTHER ==
[2018-04-22 08:41] VITALS: BP 155/84
[2018-04-22] MEDS ORDERED: ACETAMINOPHEN 325 MG TABLET PO ONE (09:38)
[2018-04-22] MEDS ORDERED: IBUPROFEN 600 MG TABLET PO ONE (09:38)
[2018-04-22] MEDS ORDERED: PREDNISONE 20 MG TABLET PO ONE (09:38)
--- NOTE | 2018-04-22 09:47 | ER Document Report ---
ED General - General Chief Complaint: Headache Stated Complaint: HEADACHE, NOSE BLEED Time Seen by Provider: 04/22/18 09:17 Notes: This is a 58-year-old female patient to the emergency department chief complaint of headache. Patient states that she has intermittent headaches. This has been on and off for almost [address] head, CTA of neck and head, multiple labs and nobody can seem to figure it out. Has seen a neurologist who states that it is not seizures and it is not migraines. States that the pain is located on the right muslim. At times she feels like her temporal artery is pulsating. It is followed by a severe headache. Occasionally she will get nosebleeds as well as some clear drainage from the nose mixed with blood but always mixed with blood. No prior head injuries. No previous sinus surgeries. No other major issues at this time. NOT The worst headache of her life. Comes and goes. Will sometimes last 10 minutes other 10 seconds. TRAVEL OUTSIDE OF THE [place] IN LAST 30 DAYS: No - HPI Onset/Duration: Intermittent, Waxing and waning Quality of pain: Throbbing Severity: Moderate Pain Level: 4 Associated symptoms: Headache. 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 - Social History Smoking Status: Current Some Day Smoker Chew tobacco use (# tins/day): No Frequency of alcohol use: None Drug Abuse: None Lives with: Spouse/Significant other Family History: Arthritis, CAD, CVA, DM, Hyperlipidemia, Hypertension, Malignancy, Thyroid Disfunction Patient has suicidal ideation: No Patient has homicidal ideation: No - Past Medical History Cardiac Medical History: Reports: Hx Hypercholesterolemia, Hx Hypertension Pulmonary Medical History: Neurological Medical History: Reports: Hx Seizures Endocrine Medical History: Reports: Hx Diabetes Mellitus Type 2 Renal/ Medical History: Denies: Hx Peritoneal Dialysis GI Medical History: Reports: Hx Gastroesophageal Reflux Disease Musculoskeltal Medical History: Reports Hx Arthritis Psychiatric Medical History: Reports: Hx Anxiety, Hx Attention Deficit Hyperactivity Disorder, Hx Depression Past Surgical History: Reports: Hx Abdominal Surgery - HERNIA, Hx Section, Hx Cholecystectomy, Hx Inguinal Hernia, Hx Neurologic Surgery - Vagal nerve stimulator, Hx Tubal Ligation, Other - Vagal nerve stimulator implant for seizure disorder - Immunizations Immunizations up to date: No Hx Diphtheria, Pertussis, Tetanus Vaccination: No Review of Systems - Review of Systems Constitutional: No symptoms reported EENT: Blurred vision, Other - Nosebleeds Cardiovascular: No symptoms reported Respiratory: No symptoms reported Gastrointestinal: No symptoms reported Genitourinary: No symptoms reported Female Genitourinary: No symptoms reported Musculoskeletal: No symptoms reported Skin: No symptoms reported Hematologic/Lymphatic: No symptoms reported Neurological/Psychological: Headaches. denies: Paralysis, Seizure, Lost consciousness Physical Exam - Vital signs Vitals: Temp Pulse Resp BP Pulse Ox 98.7 F 76 18 155/84 H 97 04/22/18 08:40 04/22/18 08:40 04/22/18 08:40 04/22/18 08:40 04/22/18 08:40 Interpretation: Normal - General General appearance: Appears well, Alert - HEENT Head: Normocephalic, Atraumatic, Other - Patient does have significant tenderness to palpation of the right muslim/temporal artery. The right temporal artery seems more prominent than the left. Eyes: Normal Pupils: PERRL Tympanic membrane: Normal Sinus: Tenderness Nasal: Normal Mouth/Lips: Normal Pharynx: Normal Neck: Normal - Respiratory Respiratory status: No respiratory distress Chest status: Nontender Breath sounds: Normal Chest palpation: Normal - Cardiovascular Rhythm: Regular Heart sounds: Normal auscultation Murmur: No - Abdominal Inspection: Normal Distension: No distension Bowel sounds: Normal Tenderness: Nontender Organomegaly: No organomegaly - Back Back: Normal, Nontender - Extremities General upper extremity: Normal inspection, Nontender, Normal color, Normal ROM , Normal temperature General lower extremity: Normal inspection, Nontender, Normal color, Normal ROM , Normal temperature, Normal weight bearing. No: Cheri's sign - Neurological Neuro grossly intact: Yes Cognition: Normal Orientation: AAOx4 [place] Coma Scale Eye Opening: Spontaneous Tello Coma Scale Verbal: Oriented Tello Coma Scale Motor: Obeys Commands [place]y Coma Scale Total: 15 Speech: Normal Motor strength normal: LUE, RUE, LLE, RLE Sensory: Normal - Psychological Associated symptoms: Normal affect, Normal mood - Skin Skin Temperature: Warm Skin Moisture: Dry Skin Color: Normal Course - Re-evaluation Re-evalutation: 04/22/18 10:43 I have explained to the patient that these are chronic problems which will unlikely be diagnosed while in the emergency department. A careful review of the medical record shows the patient has had multiple imaging studies over the last 6 months which were unremarkable. Patient was having similar symptoms when she had a CTA of the head and neck which were unremarkable. Do not feel compelled to repeat this at that time. I am more concerned about potential for temporal arteritis. Less inclined but may be a potential for a spontaneous CSF leak which would be extremely rare but once again will be unable to be diagnosed in the emergency department. A literature search reveals that 0% of spontaneous CSF leaks were documented and diagnosed through the emergency department. We will give her follow-up information for outpatient workup as a radiologist would likely need to be consulted for a definitive test for such rare condition. I have spoken with the vascular surgeon, Dr. Sweet,. He will see patient in the office at 215 today to discuss a temporal artery biopsy. Dr. Erich Sweet will not be the one managing her potential temporal arteritis. Patient will need to be referred [facility] treatment but due to my suspicion I will treat her at this time with steroids. 04/22/18 11:30 Laboratory 04/22/18 04/22/18 10:00 10:00 WBC 10.2 RBC 4.94 Hgb 14.3 Hct 42.8 MCV 87 MCH 29.0 MCHC 33.5 RDW 14.4 H Plt Count 367 Seg Neutrophils % 71.1 Lymphocytes % 21.2 Monocytes % 5.6 Eosinophils % 1.3 Basophils % 0.8 Absolute Neutrophils 7.2 Absolute Lymphocytes 2.2 Absolute Monocytes 0.6 Absolute Eosinophils 0.1 Absolute Basophils 0.1 ESR 20 Sodium 140.4 Potassium 4.3 Chloride 103 Carbon Dioxide 22 Anion Gap 15 BUN 5 L Creatinine 0.58 Est GFR ( Amer) > 60 Est GFR (Non-Af Amer) > 60 Glucose 112 H Calcium 10.1 Total Bilirubin 0.5 Direct Bilirubin 0.4 Neonat Total Bilirubin Not Reportable Neonat Direct Bilirubin Not Reportable Neonat Indirect Bili Not Reportable AST 29 ALT 34 Alkaline Phosphatase 66 C-Reactive Protein 13.2 H Total Protein 7.7 Albumin 4.5 - Vital Signs Vital signs: Temp Pulse Resp BP Pulse Ox 98.7 F 76 18 155/84 H 97 04/22/18 08:40 04/22/18 08:40 04/22/18 08:40 04/22/18 08:40 04/22/18 08:40 - Laboratory Result Diagrams: 04/22/18 10:00 04/22/18 10:00 Laboratory results interpreted by me: 04/22/18 04/22/18 10:00 10:00 RDW 14.4 H BUN 5 L Glucose 112 H C-Reactive Protein 13.2 H Discharge - Discharge Clinical Impression: Right temporal headache Condition: Good Disposition: HOME, SELF-CARE Instructions: Headache ([facility]) Additional Instructions: It will be very important that you go to Dr. Sweet office today for a consultation for possible biopsy of your temporal artery. I am recommending treatment at this time. Please follow-up with the [facility] for repeat evaluation and continued treatment. This is a condition if diagnosed as such which will need careful treatment. I am also sending you follow-up information for grinder set up operator gear tool to evaluate you for your persistent nosebleeds. Please make an appointment with him as soon as possible. Obviously with any condition if things are getting worse please return to the emergency department for any worsening symptoms or concerns. I have also included in information for a roofer vinyl coating. Please call the [facility] to schedule an appointment and to get you into see a roofer vinyl coating as soon as possible as this may be an inflammatory condition. Prescriptions: Prednisone 20 mg PO DAILY 90 Days #60 tablet Referrals: TYREL SYKES MD [Primary Care Provider] - Follow up in 3-5 days SANTANA SWEET MD [ACTIVE STAFF] - 04/22/18 2:00 pm JUSTIN RUBIN MD [ACTIVE STAFF] - Follow up in 1 week
[2018-04-22 10:21] LABS: ABSOLUTE BASOPHILS # (AUTO) 0.1 10^3/uL (0.0-0.2); ABSOLUTE EOSINOPHILS # (AUTO) 0.1 10^3/uL (0.0-0.6); ABSOLUTE LYMPHOCYTES (AUTO) 2.2 10^3/uL (0.5-4.7); ABSOLUTE MONOCYTES (AUTO) 0.6 10^3/uL (0.1-1.4); ABSOLUTE NEUT (AUTO) 7.2 10^3/uL (1.7-8.2); BASOPHILS % (AUTO) 0.8 % (0-2); EOSINOPHILS % (AUTO) 1.3 % (0-6); HEMATOCRIT 42.8 % (36.0-47.0); HEMOGLOBIN 14.3 g/dL (12.0-15.5); LYMPHOCYTES % (AUTO) 21.2 % (13-45); MEAN CORPUSCULAR HGB CONC 33.5 g/dL (32.0-36.0); MEAN CORPUSCULAR VOLUME 87 fl (80-97); MONOCYTES % (AUTO) 5.6 % (3-13); PLATELET COUNT 367 10^3/uL (150-450); RED BLOOD COUNT 4.94 10^6/uL (3.72-5.28); RED CELL DISTRIBUTION WIDTH 14.4 % (11.5-14.0); SEGMENTED NEUTROPHILS % (AUTO) 71.1 % (42-78); TOTAL CELLS COUNTED % (AUTO) 100 %; WHITE BLOOD COUNT 10.2 10^3/uL (4.0-10.5)
[2018-04-22 10:46] LABS: ALANINE AMINOTRANSFERASE 34 U/L (9-52); ALBUMIN 4.5 g/dL (3.5-5.0); ALKALINE PHOSPHATASE 66 U/L (38-126); ANION GAP 15 (5-19); ASPARTATE AMINO TRANSFERASE 29 U/L (14-36); BILIRUBIN,DIRECT 0.4 mg/dL (0.0-0.4); BILIRUBIN,TOTAL 0.5 mg/dL (0.2-1.3); BLOOD UREA NITROGEN 5 mg/dL (7-20); C-REACTIVE PROTEIN 13.2 mg/L (<10.0); CALCIUM 10.1 mg/dL (8.4-10.2); CARBON DIOXIDE 22 mmol/L (22-30); CHLORIDE 103 mmol/L (98-107); GLUCOSE 112 mg/dL (75-110); POTASSIUM 4.3 mmol/L (3.6-5.0); SODIUM 140.4 mmol/L (137-145); TOTAL PROTEIN 7.7 g/dL (6.3-8.2)
[2018-04-22 11:12] LABS: ERYTHROCYTE SEDIMENTATION RATE 20 mm/hr (0-30)
== END 2018-04-22 11:50 | disposition home or self-care (01) ==
LOC: ER 08:36
DX: R51 Headache (principal); R04.0 Epistaxis; F17.200 Nicotine dependence, unspecified, uncomplicated; I10 Essential (primary) hypertension; E11.9 Type 2 diabetes mellitus without complications
CPT/HCPCS: 99283; 36415; 85025; 85652; 86140; 80053; J7512

== ENCOUNTER 2018-04-26 10:44 | Day surgery (SDC) | payer OTHER ==
[~2018-04-26 10:44] MED LIST: DEXTROSE 5%-1/2 NORMAL SALINE 1,000 ML IV PRN
[2018-04-26] MEDS ORDERED: BUPIVACAINE HCL 0.25 % INJ/PF (2.5 MG/1 ML) 30 ML VIAL ONE (12:46)
[2018-04-26] MEDS ORDERED: LIDOCAINE 0.5% INJ-PF (5 MG/ML) 50 ML SDV ONE (12:46)
[2018-04-26] MEDS ORDERED: MIDAZOLAM 2 MG/2 ML INJ ONE (13:33)
[2018-04-26] MEDS ORDERED: KETAMINE HCL INJ 500 MG/10 ML VIAL ONE (13:33)
[2018-04-26] MEDS ORDERED: FENTANYL CITRATE INJ/PF 100 MCG/2 ML AMPUL ONE ×2 (13:33→14:44)
[2018-04-26] MEDS ORDERED: PROPOFOL INJ 200 MG/20 ML VIAL IV ONE (13:34)
[2018-04-26] MEDS ORDERED: ONDANSETRON HCL INJ/PF 4 MG/2 ML SDV IV PRN (14:13)
[2018-04-26] MEDS ORDERED: PROMETHAZINE HCL INJ 25 MG/1 ML VIAL IV PRN (14:13)
[2018-04-26] MEDS ORDERED: FENTANYL CITRATE INJ/PF 100 MCG/2 ML AMPUL IV PRN ×3 (14:13)
[2018-04-26] MEDS ORDERED: DIPHENHYDRAMINE HCL 50 MG/ML VIAL IV PRN (14:13)
--- NOTE | 2018-04-26 14:23 | Discharge Summary ---
Discharge Summary (SDC) - Discharge Final Diagnosis: #1 right temporal arteritis, suspected, headache. 2. History of seizures. 3. Diabetes mellitus type 2. 4. Hypertension. Date of Surgery: 04/26/18 Discharge Date: 04/26/18 Condition: Fair Treatment or Instructions: Discharge home [after recovery per ASU criteria]. Diet , ADA,as tolerated, when fully awake advance as tolerated. Activities within moderation encouraged. Follow up in my office by appointment in about [1 week]. Call for appointment. Leave wounds [covered], [keep clean and dry, until office visit in 1 week]. Hold of on school/work [until evaluation in office]. Meds per med rec. May shower [in 48 hrs], [try to keep operated area as dry as possible]. Referrals: TYREL SYKES MD [Primary Care Provider] - Discharge Diet: As Tolerated, Other (Comments) - Diabetic. Respiratory Treatments at Home: Deep Breathing/Coughing Discharge Activity: Activity As Tolerated Report the Following to Your Physician Immediately: Shortness of Breath, Unusual Bleeding
--- NOTE | 2018-04-26 14:25 | Operative Report ---
Operative Report DATE OF SURGERY: 04/26/18 PREOPERATIVE DIAGNOSIS: #1 right temporal arteritis, suspected, headache. 2. History of seizures. 3. Diabetes mellitus type 2. 4. Hypertension. POSTOPERATIVE DIAGNOSIS: #1 right temporal arteritis, suspected, headache. 2. History of seizures. 3. Diabetes mellitus type 2. 4. Hypertension. OPERATION: Temporal artery biopsy, right side. SURGEON: SANTANA JO LEAD PONY RIDER: None. ANESTHESIA: LMAC TISSUE REMOVED OR ALTERED: Right temporal artery. COMPLICATIONS: None. ESTIMATED BLOOD LOSS: 2 mL. INTRAOPERATIVE FINDINGS: Of a right temporal artery, a segment about 2 cm long was harvested and sent for pathology. The arch seemed grossly normal. PROCEDURE: PROCEDURE: The right temporal area was prepared with [chlorhexidine] and draped out with sterile linen. After the"universal time-out", in which it was confirmed that the patient [did not need antibiotic], the procedure commenced. The patient was appropriately anesthetized. The topographic location of the temporal artery was identified using a Doppler instrument and also palpation. It was marked in ink.. A dilute solution of local anesthesia was generously infiltrated in the skin and subcutaneous tissues above and around the area. An incision was made as marked. This went through to the subcutaneous tissues. Dissection now proceeded By spreading a hemostat to reveal the artery beneath the fascia. The artery was dissected out for a distance of about 2 cm. Both ends were clamped. The intervening section was excised and carefully submitted for pathology in formalin. Both ends were now suture ligated using 5-0 Prolene suture The wound was now closed using [a single layer of interrupted sutures. These were of 5-0 Prolene. A sterile dressing was applied and the procedure concluded.
[2018-04-26] MEDS ORDERED: ACETAMINOPHEN 1,000 MG/100 ML RTUPB IV ONE (14:30)
[2018-04-26 16:20] VITALS: BP 150/89
== END 2018-04-26 16:20 | disposition home or self-care (01) ==
LOC: OROUT 10:44
PROVIDERS: ATTEND Surgery
DX: M31.6 Other giant cell arteritis (principal); E11.9 Type 2 diabetes mellitus without complications; I10 Essential (primary) hypertension; G40.909 Epilepsy, unspecified, not intractable, without status epilepticus; Z88.3 Allergy status to other anti-infective agents; Z88.0 Allergy status to penicillin; Z79.899 Other long term (current) drug therapy; Z79.84 Long term (current) use of oral hypoglycemic drugs
CPT/HCPCS: 352; 82962; 88305; J0131; J2250; J2704; J3010; J3490

== ENCOUNTER 2018-05-25 12:19 | Emergency (ER) | payer OTHER ==
[2018-05-25] MEDS ORDERED: NAPROXEN 250 MG TABLET PO ONE (13:09)
--- NOTE | 2018-05-25 13:12 | ER Document Report ---
ED Medical Screen (RME) - General Chief Complaint: Lower Abdominal Pain Stated Complaint: DIFFICULTY URINATING, CHILLS,SWEATING Time Seen by Provider: 05/25/18 13:06 Notes: The patient is a 58-year-old female, past medical history anxiety, chronic headaches, presents with inability to void for the past 4 hours. She feels like she has to urinate. No new medications. PE: Uncomfortable, suprapubic tenderness, no CVA tenderness I have greeted and performed a rapid initial assessment of this patient. A comprehensive ED assessment and evaluation of the patient, analysis of test results and completion of the medical decision making process will be conducted by additional ED providers. TRAVEL OUTSIDE OF THE [place] IN LAST 30 DAYS: No - Related Data Allergies/Adverse Reactions: Penicillins Allergy (Severe, Verified 05/25/18 12:21) Anaphylactic shock sulfamethoxazole [From Septra] Allergy (Severe, Verified 05/25/18 12:21) Diarrhea trimethoprim [From Septra] Allergy (Severe, Verified 05/25/18 12:21) Diarrhea doxycycline [Doxycycline] Allergy (Intermediate, Verified 05/25/18 12:21) Generalized Itching levofloxacin [From Levaquin] Allergy (Intermediate, Verified 05/25/18 12:21) N&V coconut Allergy (Verified 05/25/18 12:21) Past Medical History - Past Medical History Cardiac Medical History: Reports: Hx Hypercholesterolemia, Hx Hypertension Denies: Hx Coronary Artery Disease, Hx Heart Attack Pulmonary Medical History: Denies: Hx Asthma, Hx Bronchitis, Hx COPD, Hx Pneumonia Neurological Medical History: Reports: Hx Seizures Endocrine Medical History: Reports: Hx Diabetes Mellitus Type 2 Renal/ Medical History: Denies: Hx Peritoneal Dialysis GI Medical History: Reports: Hx Gastroesophageal Reflux Disease Musculoskeltal Medical History: Reports Hx Arthritis Psychiatric Medical History: Reports: Hx Anxiety, Hx Attention Deficit Hyperactivity Disorder, Hx Depression Past Surgical History: Reports: Hx Abdominal Surgery - HERNIA, Hx Section, Hx Cholecystectomy, Hx Inguinal Hernia, Hx Neurologic Surgery - Vagal nerve stimulator, Hx Tubal Ligation, Other - Vagal nerve stimulator implant for seizure disorder - Immunizations Immunizations up to date: No Hx Diphtheria, Pertussis, Tetanus Vaccination: No History of Influenza Vaccine for 08/2017 - 01/2018 Season: Yes Physical Exam - Vital signs Vitals: Temp Pulse Resp BP Pulse Ox 97.9 F 109 H 20 138/91 H 97 05/25/18 12:24 05/25/18 12:24 05/25/18 12:24 05/25/18 12:24 05/25/18 12:24 Course - Vital Signs Vital signs: Temp Pulse Resp BP Pulse Ox 97.9 F 109 H 20 138/91 H 97 05/25/18 12:24 05/25/18 12:24 05/25/18 12:24 05/25/18 12:24 05/25/18 12:24 Doctor's Discharge - Discharge Referrals: TYREL SYKES MD [Primary Care Provider] - Follow up as needed
[2018-05-25 14:39] LABS: APPEARANCE,URINE SLIGHTLY-CLOUDY; BILIRUBIN,URINE NEGATIVE (NEGATIVE); COLOR,URINE YELLOW; GLUCOSE, URINE NEGATIVE (NEGATIVE); KETONES,URINE TRACE mg/dL (NEGATIVE); LEUKOCYTE ESTERASE,URINE NEGATIVE (NEGATIVE); NITRITE,URINE NEGATIVE (NEGATIVE); PROTEIN,URINE 30 mg/dL (NEGATIVE); UROBILINOGEN,URINE NEGATIVE mg/dL (<2.0)
[2018-05-25 14:46] LABS: ABSOLUTE EOSINOPHILS # (AUTO) 0.1 10^3/uL (0.0-0.6); ABSOLUTE LYMPHOCYTES (AUTO) 1.7 10^3/uL (0.5-4.7); ABSOLUTE MONOCYTES (AUTO) 0.8 10^3/uL (0.1-1.4); ABSOLUTE NEUT (AUTO) 6.4 10^3/uL (1.7-8.2); BASOPHILS % (AUTO) 0.5 % (0-2); EOSINOPHILS % (AUTO) 1.6 % (0-6); HEMATOCRIT 40.1 % (36.0-47.0); HEMOGLOBIN 13.8 g/dL (12.0-15.5); LYMPHOCYTES % (AUTO) 18.7 % (13-45); MEAN CORPUSCULAR HEMOGLOBIN 29.4 pg (27.0-33.4); MEAN CORPUSCULAR HGB CONC 34.5 g/dL (32.0-36.0); MEAN CORPUSCULAR VOLUME 85 fl (80-97); MONOCYTES % (AUTO) 8.4 % (3-13); PLATELET COUNT 332 10^3/uL (150-450); RED BLOOD COUNT 4.71 10^6/uL (3.72-5.28); RED CELL DISTRIBUTION WIDTH 14.7 % (11.5-14.0); SEGMENTED NEUTROPHILS % (AUTO) 70.8 % (42-78); TOTAL CELLS COUNTED % (AUTO) 100 %
[2018-05-25 15:10] LABS: ALANINE AMINOTRANSFERASE 35 U/L (9-52); ALBUMIN 4.4 g/dL (3.5-5.0); ALKALINE PHOSPHATASE 58 U/L (38-126); ANION GAP 14 (5-19); ASPARTATE AMINO TRANSFERASE 21 U/L (14-36); BILIRUBIN,DIRECT 0.4 mg/dL (0.0-0.4); BILIRUBIN,TOTAL 0.5 mg/dL (0.2-1.3); BLOOD UREA NITROGEN 8 mg/dL (7-20); CALCIUM 10.1 mg/dL (8.4-10.2); CARBON DIOXIDE 26 mmol/L (22-30); CHLORIDE 99 mmol/L (98-107); GLUCOSE 95 mg/dL (75-110); SODIUM 138.6 mmol/L (137-145); TOTAL PROTEIN 7.4 g/dL (6.3-8.2)
--- NOTE | 2018-05-25 16:14 | RADIOLOGY REPORT (SQ) ---
EXAM DESCRIPTION: KUB/ABDOMEN (SINGLE VIEW) COMPLETED DATE/TIME: 05/25/2018 3:52 pm REASON FOR STUDY: llq pain, urinary retention COMPARISON: None. NUMBER OF VIEWS: One view. TECHNIQUE: Supine radiographic image of the abdomen acquired. LIMITATIONS: None. FINDINGS: BOWEL GAS PATTERN: Normal bowel gas pattern. No dilated loops. CALCIFICATIONS: No suspicious calcifications. SOFT TISSUES: No gross mass or suggestion of organomegaly. HARDWARE: Right upper quadrant clips. BONES: No acute fracture. No worrisome bone lesions. OTHER: No other significant finding. IMPRESSION: NO RADIOGRAPHIC EVIDENCE FOR ACUTE ABDOMINAL DISEASE. TECHNICAL DOCUMENTATION: JOB ID: [id number]- All Rights Reserved Reading location - IP/workstation name: [email or web address]
--- NOTE | 2018-05-25 16:18 | ER Document Report ---
ED GI/ - General Chief Complaint: Lower Abdominal Pain Stated Complaint: DIFFICULTY URINATING, CHILLS,SWEATING Time Seen by Provider: 05/25/18 13:06 Mode of Arrival: Ambulatory Information source: Patient Notes: Patient is a 58-year-old female with a history of anxiety who presents to the ER today for feeling like she cannot urinate 4 hours. Patient states that she was drinking her normal amount of water and sweet tea during this 4 hours and kept trying to go to the bathroom to urinate because she felt that urgency to do so, however she states that she could not urinate at all. Patient denies any previous symptoms such as burning with urination, blood in her urine, she denies any abdominal pain, low back pain, fevers or chills. Patient states that she got very anxious about this and told her boss that she did not feel well so that she could come be evaluated for this. She has no history of urinary hesitancy or retention. TRAVEL OUTSIDE OF THE [place] IN LAST 30 DAYS: No - Related Data Allergies/Adverse Reactions: Penicillins Allergy (Severe, Verified 05/25/18 12:21) Anaphylactic shock sulfamethoxazole [From Septra] Allergy (Severe, Verified 05/25/18 12:21) Diarrhea trimethoprim [From Septra] Allergy (Severe, Verified 05/25/18 12:21) Diarrhea doxycycline [Doxycycline] Allergy (Intermediate, Verified 05/25/18 12:21) Generalized Itching levofloxacin [From Levaquin] Allergy (Intermediate, Verified 05/25/18 12:21) N&V coconut Allergy (Verified 05/25/18 12:21) Home Medications: omperzaole, duloxetine, prednisone, glimipride, tranzadone, metfformin Past Medical History - General Information source: Patient - Social History Smoking Status: Never Smoker Chew tobacco use (# tins/day): No Frequency of alcohol use: None Drug Abuse: None Family History: Arthritis, CAD, CVA, DM, Hyperlipidemia, Hypertension, Malignancy, Thyroid Disfunction Patient has suicidal ideation: No Patient has homicidal ideation: No - Past Medical History Cardiac Medical History: Reports: Hx Hypercholesterolemia, Hx Hypertension Denies: Hx Coronary Artery Disease, Hx Heart Attack Pulmonary Medical History: Denies: Hx Asthma, Hx Bronchitis, Hx COPD, Hx Pneumonia Neurological Medical History: Reports: Hx Seizures Endocrine Medical History: Reports: Hx Diabetes Mellitus Type 2 Renal/ Medical History: Denies: Hx Peritoneal Dialysis GI Medical History: Reports: Hx Gastroesophageal Reflux Disease Musculoskeltal Medical History: Reports Hx Arthritis Psychiatric Medical History: Reports: Hx Anxiety, Hx Attention Deficit Hyperactivity Disorder, Hx Depression Past Surgical History: Reports: Hx Abdominal Surgery - HERNIA, Hx Section, Hx Cholecystectomy, Hx Inguinal Hernia, Hx Neurologic Surgery - Vagal nerve stimulator, Hx Tubal Ligation, Other - Vagal nerve stimulator implant for seizure disorder - Immunizations Immunizations up to date: No Hx Diphtheria, Pertussis, Tetanus Vaccination: No Review of Systems - Review of Systems Constitutional: No symptoms reported EENT: No symptoms reported Cardiovascular: No symptoms reported Respiratory: No symptoms reported Gastrointestinal: No symptoms reported Genitourinary: See HPI Female Genitourinary: No symptoms reported Musculoskeletal: No symptoms reported Skin: No symptoms reported Hematologic/Lymphatic: No symptoms reported Neurological/Psychological: No symptoms reported Physical Exam - Vital signs Vitals: Temp Pulse Resp BP Pulse Ox 97.9 F 109 H 20 138/91 H 97 05/25/18 12:24 05/25/18 12:24 05/25/18 12:24 05/25/18 12:24 05/25/18 12:24 - Notes Notes: PHYSICAL EXAMINATION: GENERAL: Very anxious appearing, but in no acute distress. HEAD: Atraumatic, normocephalic. EYES: Pupils equal round and reactive to light, extraocular movements intact, sclera anicteric, conjunctiva are normal. NECK: Normal range of motion, supple without lymphadenopathy LUNGS: CTAB and equal. No wheezes rales or rhonchi. HEART: Regular rate and rhythm without murmurs ABDOMEN: Soft, suprapubic and mild left lower quadrant tenderness. No guarding, no rebound BACK: no vertebral tenderness, normal ROM GI/: no CVA tenderness EXTREMITIES: Normal range of motion, no pitting edema. No cyanosis. NEUROLOGICAL: Cranial nerves grossly intact. Normal sensory/motor exams. PSYCH: Very anxious SKIN: Warm, Dry, normal turgor, no rashes or lesions noted Course - Re-evaluation Re-evalutation: 05/25/18 18:00 Aburto catheter was ordered in triage, placed before I examined the patient, only 50 cc had been relieved. Patient felt "100% better." Patient cannot tell me how much water tea she attempted to drink during the 4 hours because she was at work "running around." Patient has a history of being very anxious about possible medical issues. KUB was negative for any acute pathology today, urinalysis negative for infection or blood, lab work unremarkable today with normal kidney function and normal white count. I believe patient is stable for discharge, Aburto was removed here for her to follow-up with her primary care provider. I did encourage her to continue drinking water. - Vital Signs Vital signs: Temp Pulse Resp BP Pulse Ox 97.7 F 77 18 135/69 H 98 05/25/18 16:32 05/25/18 16:32 05/25/18 16:32 05/25/18 16:32 05/25/18 16:32 - Laboratory Result Diagrams: 05/25/18 14:36 05/25/18 14:36 Laboratory results interpreted by me: 05/25/18 05/25/18 13:55 14:36 RDW 14.7 H Urine Protein 30 H Urine Ketones TRACE H Discharge - Discharge Clinical Impression: Urinary hesitancy Condition: Stable Disposition: HOME, SELF-CARE Additional Instructions: Return immediately for any new or worsening symptoms. Follow up with primary care provider, call tomorrow to make followup appointment. Forms: Return to Work Referrals: TYREL SYKES MD [Primary Care Provider] - Follow up as needed
[2018-05-25 16:34] VITALS: BP 135/69
== END 2018-05-25 16:40 | disposition home or self-care (01) ==
LOC: ER 12:19
DX: R39.11 Hesitancy of micturition (principal); R39.15 Urgency of urination; R10.814 Left lower quadrant abdominal tenderness; I10 Essential (primary) hypertension; E11.9 Type 2 diabetes mellitus without complications; K21.9 Gastro-esophageal reflux disease without esophagitis; M19.90 Unspecified osteoarthritis, unspecified site; F32.9 Major depressive disorder, single episode, unspecified; F41.9 Anxiety disorder, unspecified; Z79.899 Other long term (current) drug therapy; Z79.84 Long term (current) use of oral hypoglycemic drugs; Z79.52 Long term (current) use of systemic steroids; Z88.1 Allergy status to other antibiotic agents; Z91.018 Allergy to other foods; Z87.892 Personal history of anaphylaxis; Z88.0 Allergy status to penicillin
CPT/HCPCS: 36415; 51702; 74018; 80053; 81001; 85025; 87086; 99284

== ENCOUNTER 2018-05-27 17:20 | Emergency (ER) | payer OTHER ==
[2018-05-27] MEDS ORDERED: MORPHINE SULFATE 10 MG/ML INJ IV ONE (18:32)
--- NOTE | 2018-05-27 18:43 | ER Document Report ---
ED Medical Screen (RME) - General Chief Complaint: Headache Stated Complaint: HEADACHES Time Seen by Provider: 05/27/18 18:30 Mode of Arrival: Ambulatory Information source: Patient Notes: 58-year-old female presents the emergency department with 3-day history of left- sided facial swelling and pain. Patient denies any dental pain. She does note that her partial teeth hit her tooth a few days ago. Patient states that she has been taking Tylenol with minimal relief of symptoms. Patient denies any alleviating or exacerbating factors. Denies fever, rhinorrhea. Is having a headache located at the left sikh. Throbbing sensation. No radiation. Not abrupt onset. I have greeted and performed a rapid initial assessment of this patient. A comprehensive ED assessment and evaluation of the patient, analysis of test results and completion of the medical decision making process will be conducted by additional ED providers. PHYSICAL EXAMINATION: GENERAL: Well-appearing, well-nourished and in no acute distress. HEAD: Atraumatic, normocephalic. EYES: Pupils equal round extraocular movements intact, conjunctiva are normal. ENT: Nares patent. Tenderness to palpation and induration over the Left maxillary area. Minimal swelling noted. No teeth tenderness to palpation. No dental abscess. +dental caries. NECK: Normal range of motion LUNGS: No respiratory distress Musculoskeletal: Normal range of motion NEUROLOGICAL: Normal speech, normal gait. PSYCH: Normal mood, normal affect. SKIN: Warm, Dry, normal turgor, no rashes or lesions noted. TRAVEL OUTSIDE OF THE [place] IN LAST 30 DAYS: No - HPI Onset/Duration: Gradual - Related Data Allergies/Adverse Reactions: Penicillins Allergy (Severe, Verified 05/27/18 17:22) Anaphylactic shock sulfamethoxazole [From Septra] Allergy (Severe, Verified 05/27/18 17:22) Diarrhea trimethoprim [From Septra] Allergy (Severe, Verified 05/27/18 17:22) Diarrhea doxycycline [Doxycycline] Allergy (Intermediate, Verified 05/27/18 17:22) Generalized Itching levofloxacin [From Levaquin] Allergy (Intermediate, Verified 05/27/18 17:22) N&V coconut Allergy (Verified 05/27/18 17:22) Past Medical History - Social History Chew tobacco use (# tins/day): No Frequency of alcohol use: None Drug Abuse: None - Past Medical History Cardiac Medical History: Reports: Hx Hypercholesterolemia, Hx Hypertension Denies: Hx Coronary Artery Disease, Hx Heart Attack Pulmonary Medical History: Denies: Hx Asthma, Hx Bronchitis, Hx COPD, Hx Pneumonia Neurological Medical History: Reports: Hx Seizures Endocrine Medical History: Reports: Hx Diabetes Mellitus Type 2 Renal/ Medical History: Denies: Hx Peritoneal Dialysis GI Medical History: Reports: Hx Gastroesophageal Reflux Disease Musculoskeltal Medical History: Reports Hx Arthritis Psychiatric Medical History: Reports: Hx Anxiety, Hx Attention Deficit Hyperactivity Disorder, Hx Depression Past Surgical History: Reports: Hx Abdominal Surgery - HERNIA, Hx Section, Hx Cholecystectomy, Hx Inguinal Hernia, Hx Neurologic Surgery - Vagal nerve stimulator, Hx Tubal Ligation, Other - Vagal nerve stimulator implant for seizure disorder - Immunizations Immunizations up to date: No Hx Diphtheria, Pertussis, Tetanus Vaccination: No History of Influenza Vaccine for 08/2017 - 01/2018 Season: Yes Physical Exam - Vital signs Vitals: Temp Pulse Resp BP Pulse Ox 98.4 F 98 17 150/85 H 96 05/27/18 17:24 05/27/18 17:24 05/27/18 17:24 05/27/18 17:24 05/27/18 17:24 Course - Vital Signs Vital signs: Temp Pulse Resp BP Pulse Ox 98.4 F 98 17 150/85 H 96 05/27/18 17:24 05/27/18 17:24 05/27/18 17:24 05/27/18 17:24 05/27/18 17:24 Doctor's Discharge - Discharge Referrals: TYREL SYKES MD [Primary Care Provider] - Follow up as needed
[2018-05-27 19:47] LABS: ABSOLUTE BASOPHILS # (AUTO) 0.1 10^3/uL (0.0-0.2); ABSOLUTE EOSINOPHILS # (AUTO) 0.2 10^3/uL (0.0-0.6); ABSOLUTE LYMPHOCYTES (AUTO) 3.3 10^3/uL (0.5-4.7); ABSOLUTE MONOCYTES (AUTO) 1.2 10^3/uL (0.1-1.4); ABSOLUTE NEUT (AUTO) 7.2 10^3/uL (1.7-8.2); EOSINOPHILS % (AUTO) 1.4 % (0-6); HEMATOCRIT 41.2 % (36.0-47.0); HEMOGLOBIN 14.1 g/dL (12.0-15.5); LYMPHOCYTES % (AUTO) 27.3 % (13-45); MEAN CORPUSCULAR HEMOGLOBIN 29.3 pg (27.0-33.4); MEAN CORPUSCULAR HGB CONC 34.4 g/dL (32.0-36.0); MEAN CORPUSCULAR VOLUME 85 fl (80-97); MONOCYTES % (AUTO) 9.8 % (3-13); PLATELET COUNT 397 10^3/uL (150-450); RED BLOOD COUNT 4.82 10^6/uL (3.72-5.28); RED CELL DISTRIBUTION WIDTH 14.7 % (11.5-14.0); SEGMENTED NEUTROPHILS % (AUTO) 60.5 % (42-78); TOTAL CELLS COUNTED % (AUTO) 100 %; WHITE BLOOD COUNT 11.9 10^3/uL (4.0-10.5)
--- NOTE | 2018-05-27 20:00 | RADIOLOGY REPORT (SQ) ---
EXAM DESCRIPTION: CT FACIAL AREA WITH COMPLETED DATE/TIME: 05/27/2018 7:46 pm REASON FOR STUDY: L facial pain, blurred vision COMPARISON: None. TECHNIQUE: Post contrast images through the facial bones and orbits windowed for bone and soft tissu e. Additional coronal and sagittal reconstructed images reviewed. All images stored on PACS. All CT scanners at this facility use dose modulation, iterative reconstruction, and/or weight based d osing when appropriate to reduce radiation dose to as low as reasonably achievable (ALARA). [facility]: Dose Right [facility]: CareDose [facility]: Dose Right [facility]: Teradose 4D [facility]: Busy Moos CONTRAST TYPE AND DOSE: contrast/concentration: Isovue 370.00 mg/ml; Total Contrast Delivered: 75.0 ml; Total Saline Delivered: 50.0 ml RENAL FUNCTION: BUN 8 creatinine 0.67 RADIATION DOSE: CT Rad equipment meets quality standard of care and radiation dose reduction techniq ues were employed. CTDIvol: 30.4 mGy. DLP: 522 mGy-cm. . LIMITATIONS: None. FINDINGS: FACIAL BONES: No fracture or bone lesion. ORBITS: Intact. No fracture. Symmetric intact globes and retroorbital soft tissues. PARANASAL SINUSES: Clear. No significant mucosal thickening, mass or fluid. No nasal polyps. Maxilla ry sinus outlets are patent. SOFT TISSUES: There is mild subcutaneous edema in the left side of the face. There is lucency at the base of tooth 12. Lung on image 28 series 3 there is questionably a small fluid collection adjacent to the maxilla at this level. INFERIOR BRAIN: Limited view. No acute findings. OTHER: No other significant finding. IMPRESSION: Dental disease on the left with subcutaneous edema and questionably a small abscess kian cent to the lateral aspect of the maxilla. TECHNICAL DOCUMENTATION: JOB ID: [id number] Quality ID # [id number]: Final reports with documentation of one or more dose reduction techniques (e.g., Au tomated exposure control, adjustment of the mA and/or kV according to patient size, use of iterative reconstruction technique) 2010 [id number]- All Rights Reserved Reading location - IP/workstation name: [email or web address]
[2018-05-27 20:02] LABS: ALANINE AMINOTRANSFERASE 45 U/L (9-52); ALBUMIN 5.1 g/dL (3.5-5.0); ALKALINE PHOSPHATASE 73 U/L (38-126); ANION GAP 16 (5-19); ASPARTATE AMINO TRANSFERASE 27 U/L (14-36); BILIRUBIN,DIRECT 0.4 mg/dL (0.0-0.4); BILIRUBIN,TOTAL 0.8 mg/dL (0.2-1.3); BLOOD UREA NITROGEN 3 mg/dL (7-20); CARBON DIOXIDE 24 mmol/L (22-30); CHLORIDE 95 mmol/L (98-107); GLUCOSE 78 mg/dL (75-110); POTASSIUM 3.4 mmol/L (3.6-5.0); SODIUM 134.5 mmol/L (137-145); TOTAL PROTEIN 8.3 g/dL (6.3-8.2)
[2018-05-27] MEDS ORDERED: CLINDAMYCIN 600 MG/D5W RTU 600 MG/50 ML RTUPB IV ONE (20:33)
--- NOTE | 2018-05-27 21:14 | ER Document Report ---
ED General - General Chief Complaint: Headache Stated Complaint: HEADACHES Time Seen by Provider: 05/27/18 18:30 Mode of Arrival: Ambulatory TRAVEL OUTSIDE OF THE [place] IN LAST 30 DAYS: No - HPI Patient complains to provider of: Left facial swelling dental pain Notes: Patient coming in complaining of a knot developing along the left side of her nose above the maxillary sinus and dental pain. Patient states recently had a new bridge and continues to have issues with it. Patient denies any fever chills nausea vomiting diarrhea patient states the small little not above the maxillary sinuses very painful. Patient resting comfortably upon my evaluation. - Related Data Allergies/Adverse Reactions: Penicillins Allergy (Severe, Verified 05/27/18 17:22) Anaphylactic shock sulfamethoxazole [From Septra] Allergy (Severe, Verified 05/27/18 17:22) Diarrhea trimethoprim [From Septra] Allergy (Severe, Verified 05/27/18 17:22) Diarrhea doxycycline [Doxycycline] Allergy (Intermediate, Verified 05/27/18 17:22) Generalized Itching levofloxacin [From Levaquin] Allergy (Intermediate, Verified 05/27/18 17:22) N&V coconut Allergy (Verified 05/27/18 17:22) Past Medical History - General Information source: Patient - Social History Smoking Status: Never Smoker Chew tobacco use (# tins/day): No Frequency of alcohol use: None Drug Abuse: None Family History: Arthritis, CAD, CVA, DM, Hyperlipidemia, Hypertension, Malignancy, Thyroid Disfunction Patient has suicidal ideation: No Patient has homicidal ideation: No - Past Medical History Cardiac Medical History: Reports: Hx Hypercholesterolemia, Hx Hypertension Denies: Hx Coronary Artery Disease, Hx Heart Attack Pulmonary Medical History: Denies: Hx Asthma, Hx Bronchitis, Hx COPD, Hx Pneumonia Neurological Medical History: Reports: Hx Seizures Endocrine Medical History: Reports: Hx Diabetes Mellitus Type 2 Renal/ Medical History: Denies: Hx Peritoneal Dialysis GI Medical History: Reports: Hx Gastroesophageal Reflux Disease Musculoskeletal Medical History: Reports Hx Arthritis Psychiatric Medical History: Reports: Hx Anxiety, Hx Attention Deficit Hyperactivity Disorder, Hx Depression Past Surgical History: Reports: Hx Abdominal Surgery - HERNIA, Hx Section, Hx Cholecystectomy, Hx Inguinal Hernia, Hx Neurologic Surgery - Vagal nerve stimulator, Hx Tubal Ligation, Other - Vagal nerve stimulator implant for seizure disorder - Immunizations Immunizations up to date: No Hx Diphtheria, Pertussis, Tetanus Vaccination: No Review of Systems - Review of Systems Constitutional: Other - Face pain EENT: No symptoms reported Cardiovascular: No symptoms reported Respiratory: No symptoms reported Gastrointestinal: No symptoms reported Genitourinary: No symptoms reported Female Genitourinary: No symptoms reported Musculoskeletal: No symptoms reported Skin: No symptoms reported Hematologic/Lymphatic: No symptoms reported Neurological/Psychological: No symptoms reported -: Yes All other systems reviewed and negative Physical Exam - Vital signs Vitals: Temp Pulse Resp BP Pulse Ox 98.4 F 98 17 150/85 H 96 05/27/18 17:24 05/27/18 17:24 05/27/18 17:24 05/27/18 17:24 05/27/18 17:24 Interpretation: Normal - General General appearance: Appears well, Alert - HEENT Head: Normocephalic, Other - Palpation above the maxillary sinus the left side of the nose does reveal a small area of induration that is tender to touch sutures a very slight change in skin color slightly erythematous. Evaluation inside the nose does not reveal any signs of the intranasal abscess or any other abnormalities. Evaluation of the oral cavity after the patient removed her brace does show some signs of gingival cellulitis at the site of the canine on the left side on the upper row of teeth this area cellulitis is very tender to touch is no signs of any of her abscess formation bedside ultrasound was also performed over this area slight erythema did not appreciate any abscess at this time no drainable fluid collection Eyes: Normal Conjunctiva: Normal Cornea: Normal Extraocular movements intact: Yes Eyelashes: Normal Pupils: PERRL - Respiratory Respiratory status: No respiratory distress Chest status: Nontender Breath sounds: Normal Chest palpation: Normal - Cardiovascular Rhythm: Regular Heart sounds: Normal auscultation Murmur: No - Abdominal Inspection: Normal Distension: No distension Bowel sounds: Normal Tenderness: Nontender Organomegaly: No organomegaly - Back Back: Normal, Nontender - Extremities General upper extremity: Normal inspection, Nontender, Normal color, Normal ROM , Normal temperature General lower extremity: Normal inspection, Nontender, Normal color, Normal ROM , Normal temperature, Normal weight bearing. No: Cheri's sign - Neurological Neuro grossly intact: Yes Cognition: Normal Orientation: AAOx4 [place] Coma Scale Eye Opening: Spontaneous Tello Coma Scale Verbal: Oriented [place] Coma Scale Motor: Obeys Commands Tello Coma Scale Total: 15 Speech: Normal Motor strength normal: LUE, RUE, LLE, RLE Sensory: Normal - Psychological Associated symptoms: Normal affect, Normal mood - Skin Skin Temperature: Warm Skin Moisture: Dry Skin Color: Normal Course - Re-evaluation Re-evalutation: 05/28/18 00:08 CT scan address possible abscess formation however physical examination does not reveal overt abscess that is drainable. Patient does not have significant poor dentition do believe possibility of gingival cellulitis possibly is causing some swelling on the left side along the region patient is having tenderness. Patient was started on clindamycin and recommended patient follow- up with her oral surgeon for further evaluation Tylenol Motrin for pain control along with warm packs ice packs. - Vital Signs Vital signs: Temp Pulse Resp BP Pulse Ox 98.6 F 85 18 138/69 H 97 05/27/18 21:55 05/27/18 21:55 05/27/18 21:55 05/27/18 21:55 05/27/18 21:55 - Laboratory Result Diagrams: 05/27/18 19:30 05/27/18 19:30 Laboratory results interpreted by me: 05/27/18 05/27/18 19:30 19:30 WBC 11.9 H RDW 14.7 H Sodium 134.5 L Potassium 3.4 L Chloride 95 L BUN 3 L Creatinine 0.49 L Total Protein 8.3 H Albumin 5.1 H Discharge - Discharge Clinical Impression: Dental infection Condition: Good Disposition: HOME, SELF-CARE Instructions: Dental Infection or Abscess ([facility]) Additional Instructions: CT scan shows inflammation and development of infection. Examination of the oral cavity shows irritation more likely caused by your partial and was thought to be causing a gingival cellulitis which can cause the pain that you are spacing to the left side of her face. Would recommend taking the antibiotics as prescribed. 600 mg of Motrin along with 650-1,000 mg of Tylenol 3 times a day take these together please call your oral surgeon tomorrow to schedule follow-up appointment. Take antibiotics as prescribed. I would also recommend placing warm packs and ice packs on your face to help out with pain inflammation and swelling Prescriptions: Clindamycin HCl [Cleocin HCl] 150 mg PO Q6 #40 capsule Referrals: TYREL SYKES MD [ACTIVE STAFF] - Follow up as needed
[2018-05-27 22:04] VITALS: BP 138/69
== END 2018-05-27 21:00 | disposition home or self-care (01) ==
LOC: ER 17:20
DX: K04.7 Periapical abscess without sinus (principal); R51 Headache; Z88.0 Allergy status to penicillin; Z88.8 Allergy status to other drugs, medicaments and biological substances; Z91.018 Allergy to other foods; I10 Essential (primary) hypertension; E78.00 Pure hypercholesterolemia, unspecified; E11.9 Type 2 diabetes mellitus without complications; K21.9 Gastro-esophageal reflux disease without esophagitis; M19.90 Unspecified osteoarthritis, unspecified site; F41.9 Anxiety disorder, unspecified; F90.9 Attention-deficit hyperactivity disorder, unspecified type; F32.9 Major depressive disorder, single episode, unspecified
CPT/HCPCS: 99284; 96375; 96365; 36415; 87040; 85025; 80053; 70487; J2270

== ENCOUNTER → 2018-11-25 | Outpatient (CLI) | payer OTHER ==
--- NOTE | 2018-11-25 13:40 | RADIOLOGY REPORT (SQ) ---
EXAM DESCRIPTION: MRI HEAD COMBO COMPLETED DATE/TIME: 11/25/2018 1:19 pm REASON FOR STUDY: GENERALIZED EPILEPSY AND EPILEPTIC SYNDROME, INTRACTABLE W/O STATUS EPILEPT G40.41 9 OTH GENERALIZED EPILEPSY, INTRACTABLE, W/O STAT EPI R51 HEADACHE COMPARISON: 2014 TECHNIQUE: Multiplanar imaging includes noncontrasted T1, T2, FLAIR, diffusion with ADC map and post gadolinium contrast T1 sequences. Images stored on PACS. CONTRAST TYPE AND DOSE: 20 mL Dotarem. RENAL FUNCTION: GFR > 60. LIMITATIONS: None. FINDINGS: ANATOMY: No anomalies. Normal vascular flow voids. Pituitary fossa normal. CSF SPACES: Normal in size and contour. No hemorrhage. CEREBRUM: Sulci and gyri normal in size and contour. No evidence of hemorrhage, mass, or extraaxial fluid collection. No abnormal enhancement post contrast. POSTERIOR FOSSA: No signal alteration. No hemorrhage. No edema, masses, or mass effect. Internal ramandeep tory canals, cerebellopontine angles, mastoids normal. No enhancing lesions. No abnormal enhancement post contrast. DIFFUSION IMAGING: Negative for acute or subacute infarction. ORBITS: No masses. Globes normal. PARANASAL SINUSES: No fluid levels. Mucosa normal. OTHER: No other significant finding. IMPRESSION: Normal brain. EVIDENCE OF ACUTE STROKE: NO. TECHNICAL DOCUMENTATION: JOB ID: [id number] [employer]- All Rights Reserved Reading location - IP/workstation name: [email or web address]
--- NOTE | 2018-11-25 13:41 | RADIOLOGY REPORT (SQ) ---
EXAM DESCRIPTION: MRA HEAD WITHOUT COMPLETED DATE/TIME: 11/25/2018 1:19 pm REASON FOR STUDY: GENERALIZED EPILEPSY AND EPILEPTIC SYNDROME, INTRACTABLE W/O STATUS EPILEPT G40.41 9 OTH GENERALIZED EPILEPSY, INTRACTABLE, W/O STAT EPI R51 HEADACHE COMPARISON: None. TECHNIQUE: Axial 3-D [id number] acquisition imaging performed through the brain in the area of t he chin[place] of [place]. Images reformatted using 3-D MIPS. LIMITATIONS: None. FINDINGS: SOURCE IMAGES: No unexpected findings on source images. No large masses. 3-D MIP: No aneurysm. No occlusions. No significant stenosis. OTHER: No other significant finding. IMPRESSION: NORMAL MRA OF THE [place]. TECHNICAL DOCUMENTATION: JOB ID: [id number] [employer]- All Rights Reserved Reading location - IP/workstation name: [email or web address]
== END ==
LOC: RAD 11:50
PROVIDERS: ATTEND Nurse Practitioner Family
DX: G40.419 Other generalized epilepsy and epileptic syndromes, intractable, without status epilepticus (principal); R51 Headache; I67.1 Cerebral aneurysm, nonruptured
CPT/HCPCS: 82565; 70553; 70544; A9576

== ENCOUNTER 2019-02-08 15:30 | Emergency (ER) | payer OTHER ==
[2019-02-08 15:43] VITALS: BP 147/84
[2019-02-08] MEDS ORDERED: IPRATROPIUM/ALBUTEROL 0.5-2.5 MG/3 ML AMPUL NEB ONE (16:01)
--- NOTE | 2019-02-08 16:02 | ER Document Report ---
HPI - HPI Time Seen by Provider: 02/08/19 16:01 Pain Level: 4 Notes: 58-year-old female presents to ED with complaints of having musculoskeletal pain to her right shoulder for the last 10 days, has tried [id number] ibuprofen and Tylenol and states that her symptoms get aggravated when she works at the [employer]. Patient states she can feel a bump to her right back that causes pain. She thinks that she strained something. Denies any trauma or recent inju ry. Denies any numbness or tingling down her arms or legs. Does have diabetic neuropathy is in which she takes gabapentin for but states this is different. Denies fevers, chills, chest pain,palpitations, shortness of breath, dyspnea, nausea, vomiting, diarrhea, abdominal pain, hematuria,blurred vision, double vision, loss of vision, speech changes, LH, dizziness, syncope, headaches, wheezing, ST, URI, neck pain, weakness, bowel or bladder dysfunction, saddle anesthesia, numbness or tingling in bilateral upper or lower extremities equally, muscle paralysis, weakness in bilateral upper or lower extremities equally or rash. - REPRODUCTIVE Reproductive: DENIES: : Past Medical History - General Information source: Patient - Social History Smoking Status: Unknown if Ever Smoked Family History: Arthritis, CAD, CVA, DM, Hyperlipidemia, Hypertension, Malignancy, Thyroid Disfunction - Past Medical History Cardiac Medical History: Reports: Hx Hypercholesterolemia, Hx Hypertension Denies: Hx Coronary Artery Disease, Hx Heart Attack Pulmonary Medical History: Denies: Hx Asthma, Hx Bronchitis, Hx COPD, Hx Pneumonia Neurological Medical History: Reports: Hx Seizures Endocrine Medical History: Reports: Hx Diabetes Mellitus Type 2 Renal/ Medical History: Denies: Hx Peritoneal Dialysis GI Medical History: Reports: Hx Gastroesophageal Reflux Disease Musculoskeletal Medical History: Reports Hx Arthritis Psychiatric Medical History: Reports: Hx Anxiety, Hx Attention Deficit Hyperactivity Disorder, Hx Depression Past Surgical History: Reports: Hx Abdominal Surgery - HERNIA, Hx Section, Hx Cholecystectomy, Hx Inguinal Hernia, Hx Neurologic Surgery - Vagal nerve stimulator, Hx Tubal Ligation, Other - Vagal nerve stimulator implant for seizure disorder - Immunizations Immunizations up to date: No Hx Diphtheria, Pertussis, Tetanus Vaccination: No Vertical Provider Document - CONSTITUTIONAL Agree With Documented VS: Yes Notes: PHYSICAL EXAMINATION: GENERAL: Well-appearing, well-nourished and in no acute distress. HEAD: Atraumatic, normocephalic. EYES: Pupils equal round and reactive to light, extraocular movements intact, conjunctiva are normal. ENT: Nares patent, oropharynx clear without exudates. Moist mucous membranes. NECK: Normal range of motion, supple without lymphadenopathy LUNGS: Breath sounds clear to auscultation bilaterally and equal. No wheezes rales or rhonchi. HEART: Regular rate and rhythm without murmurs ABDOMEN: Soft, nontender, nondistended abdomen. No guarding, no rebound. No masses appreciated. Female : deferred Musculoskeletal: Normal range of motion, no pitting or edema. No cyanosis. Noted right trapezius trigger point distal to NEUROLOGICAL: Cranial nerves grossly intact. Normal speech, normal gait. Normal sensory, motor exams PSYCH: Normal mood, normal affect. SKIN: Warm, Dry, normal turgor, no rashes or lesions noted. 22-like and then on the other half of a flight - INFECTION CONTROL TRAVEL OUTSIDE OF THE [place] IN LAST 30 DAYS: No Course - Re-evaluation Re-evalutation: 02/08/19 16:18 58-year-old female afebrile vitals stable no distress for evaluation of point tenderness to right paraspinal area, this provider was able to reproduce pain that brought her to the emergency room. Advised to apply heat 20 minutes on 20 minutes off several times a day, use muscle relaxers as directed do not drive, drink or operate heavy machinery while taking medication as it can cause sedation and cognitive impairment, apply lidocaine patches as needed for adjunctive pain control, alternate between Tylenol and ibuprofen for pain control, follow-up with primary care provider within the next 24-48 hours, work note given.No evidence of a septic joint, gout flare, dislocation, or fracture on exam and imaging. Vitals wnl. At this time, I do not see an indication for labs or further imaging. Will discharge with conservative measures, return precautions, and follow-up recommendations. - Vital Signs Vital signs: Temp Pulse Resp BP Pulse Ox 98.2 F 86 18 147/84 H 97 02/08/19 15:42 02/08/19 15:42 02/08/19 15:42 02/08/19 15:42 02/08/19 15:42 Discharge - Discharge Clinical Impression: Trigger point of right shoulder region Condition: Stable Disposition: HOME, SELF-CARE Instructions: Muscle Strain ([facility]), Warm Packs ([facility]) Additional Instructions: Muscle Relaxers Muscle relaxing medications are usually prescribed for acute muscle spasm or injury to the neck and back. They are often combined with antiinflammatory pain medication for increased relief. You may stop the muscle relaxer when the pain and stiffness have improved. Start the medication again if spasms recur. Muscle relaxers may cause drowsiness, especially with the first dose. Do not operate machinery or drive while under the effects of the medication. Most muscle relaxers last up to 24 hours. Do not combine the medication with alcohol. Muscle Strain You have strained a muscle -- torn the fibers within the muscle. This often occurs with strenuous exertion, or during an injury that suddenly stretches the muscle. The seriousness of a strain varies. Some strains heal within days, others cause problems for months. X-rays cannot show a muscle strain. X-rays are taken only if symptoms suggest that a fracture could be present. The usual treatment of a muscle strain is rest and ice packs. Sometimes, a sling, splint, or crutches may be necessary to rest the muscle. The muscle can be used again once pain subsides. Severe strains require a special exercise and stretching program to prevent permanent stiffness and disability. Your doctor will advise you if this will be necessary. Call the doctor immediately if pain or swelling becomes severe, or if numbness or discoloration develop. Return immediately for any new or worsening symptoms. Follow up with primary care provider, call tomorrow to make followup appointment. Prescriptions: Lidocaine/Menthol [Lidall 4%-1% Patch] 1 each TP TIDP PRN #20 adh..patch PRN Reason: Methocarbamol [Robaxin 500 mg Tablet] 500 mg PO QID PRN #15 tablet PRN Reason: Forms: Return to Work Referrals: KATHERINE DIANA MD [Primary Care Provider] - Follow up in 3-5 days
== END 2019-02-08 16:25 | disposition home or self-care (01) ==
LOC: ER 15:30
DX: M25.511 Pain in right shoulder (principal); E78.00 Pure hypercholesterolemia, unspecified; I10 Essential (primary) hypertension; E11.9 Type 2 diabetes mellitus without complications; Z90.49 Acquired absence of other specified parts of digestive tract; Z98.51 Tubal ligation status
CPT/HCPCS: 99283

== ENCOUNTER → 2019-05-30 | Outpatient (CLI) | payer OTHER ==
[2019-05-30 17:45] LABS: ABSOLUTE BASOPHILS # (AUTO) 0.1 10^3/uL (0.0-0.2); ABSOLUTE EOSINOPHILS # (AUTO) 0.1 10^3/uL (0.0-0.6); ABSOLUTE LYMPHOCYTES (AUTO) 3.4 10^3/uL (0.5-4.7); ABSOLUTE MONOCYTES (AUTO) 0.9 10^3/uL (0.1-1.4); ABSOLUTE NEUT (AUTO) 8.7 10^3/uL (1.7-8.2); BASOPHILS % (AUTO) 0.7 % (0-2); HEMATOCRIT 39.2 % (36.0-47.0); LYMPHOCYTES % (AUTO) 25.7 % (13-45); MEAN CORPUSCULAR HEMOGLOBIN 29.3 pg (27.0-33.4); MEAN CORPUSCULAR HGB CONC 33.2 g/dL (32.0-36.0); MEAN CORPUSCULAR VOLUME 88 fl (80-97); MONOCYTES % (AUTO) 6.6 % (3-13); PLATELET COUNT 517 10^3/uL (150-450); RED BLOOD COUNT 4.44 10^6/uL (3.72-5.28); RED CELL DISTRIBUTION WIDTH 14.3 % (11.5-14.0); TOTAL CELLS COUNTED % (AUTO) 100 %; WHITE BLOOD COUNT 13.1 10^3/uL (4.0-10.5)
[2019-05-30 18:10] LABS: ANION GAP 15 (5-19); BLOOD UREA NITROGEN 7 mg/dL (7-20); CALCIUM 10.1 mg/dL (8.4-10.2); CARBON DIOXIDE 22 mmol/L (22-30); CHLORIDE 99 mmol/L (98-107); GLUCOSE 137 mg/dL (75-110); POTASSIUM 4.5 mmol/L (3.6-5.0); SODIUM 135.5 mmol/L (137-145)
--- NOTE | 2019-05-31 18:26 | EKG REPORT ---
SEVERITY:- ABNORMAL ECG - SINUS RHYTHM ABNORMAL T, CONSIDER ISCHEMIA, LATERAL LEADS : Confirmed by: Zane Rodriguez MD 31-May-2019 18:26:02
== END ==
LOC: OD 16:06
PROVIDERS: ATTEND Orthopaedic Surgery
DX: Z01.812 Encounter for preprocedural laboratory examination (principal); Z01.810 Encounter for preprocedural cardiovascular examination; Z01.811 Encounter for preprocedural respiratory examination; G56.02 Carpal tunnel syndrome, left upper limb; E11.9 Type 2 diabetes mellitus without complications; I10 Essential (primary) hypertension
CPT/HCPCS: 36415; 80048; 85025; 93005; 93010

== ENCOUNTER 2019-07-05 07:32 | Day surgery (SDC) | payer OTHER ==
[~2019-07-05 07:32] MED LIST changes: +CLINDAMYCIN 600 MG/D5W RTU 600 MG/50 ML RTUPB IV PRN; +DEXAMETHASONE SOD PHOSPHATE INJ 4 MG/1 ML VIAL ONE; -DEXTROSE 5%-1/2 NORMAL SALINE 1,000 ML IV PRN; +FENTANYL CITRATE INJ/PF 100 MCG/2 ML AMPUL ONE; +KETOROLAC TROMETHAMINE 60 MG/2 ML SDV ONE; +MIDAZOLAM 2 MG/2 ML INJ ONE; +ONDANSETRON HCL INJ/PF 4 MG/2 ML SDV ONE; +PROPOFOL INJ 200 MG/20 ML VIAL IV ONE
[2019-07-05] MEDS ORDERED: CLINDAMYCIN 600 MG/D5W RTU 600 MG/50 ML RTUPB IV ONE (08:24)
[2019-07-05 08:35] LABS: ABSOLUTE EOSINOPHILS # (AUTO) 0.1 10^3/uL (0.0-0.6); ABSOLUTE LYMPHOCYTES (AUTO) 1.7 10^3/uL (0.5-4.7); ABSOLUTE MONOCYTES (AUTO) 0.6 10^3/uL (0.1-1.4); ABSOLUTE NEUT (AUTO) 6.4 10^3/uL (1.7-8.2); BASOPHILS % (AUTO) 0.5 % (0-2); EOSINOPHILS % (AUTO) 1.3 % (0-6); HEMATOCRIT 38.8 % (36.0-47.0); HEMOGLOBIN 12.9 g/dL (12.0-15.5); LYMPHOCYTES % (AUTO) 19.5 % (13-45); MEAN CORPUSCULAR HEMOGLOBIN 29.2 pg (27.0-33.4); MEAN CORPUSCULAR HGB CONC 33.3 g/dL (32.0-36.0); MEAN CORPUSCULAR VOLUME 88 fl (80-97); MONOCYTES % (AUTO) 6.6 % (3-13); PLATELET COUNT 368 10^3/uL (150-450); RED BLOOD COUNT 4.43 10^6/uL (3.72-5.28); SEGMENTED NEUTROPHILS % (AUTO) 72.1 % (42-78); TOTAL CELLS COUNTED % (AUTO) 100 %; WHITE BLOOD COUNT 8.9 10^3/uL (4.0-10.5)
[2019-07-05 08:53] LABS: ANION GAP 13 (5-19); BLOOD UREA NITROGEN 12 mg/dL (7-20); CARBON DIOXIDE 26 mmol/L (22-30); CHLORIDE 95 mmol/L (98-107); GLUCOSE 101 mg/dL (75-110); POTASSIUM 4.1 mmol/L (3.6-5.0)
[2019-07-05] MEDS ORDERED: SCOPOLAMINE HYDROBROMIDE 1.5 MG PATCH.TD72 ONE (09:12)
[2019-07-05] MEDS ORDERED: BUPIVACAINE HCL 0.5 % INJ/PF 30 ML SDV ONE (10:25)
[2019-07-05] MEDS ORDERED: HYDROMORPHONE HCL INJ/PF 2 MG/ML AMPULE ONE (10:31)
[2019-07-05] MEDS ORDERED: FENTANYL CITRATE INJ/PF 100 MCG/2 ML AMPUL ONE (10:31)
[2019-07-05] MEDS ORDERED: FAMOTIDINE INJ/PF 20 MG/2 ML SDV IV ONE (10:32)
[2019-07-05] MEDS ORDERED: METOCLOPRAMIDE HCL INJ/PF 10 MG/2 ML SDV ONE (10:32)
[2019-07-05] MEDS ORDERED: SCOPOLAMINE HYDROBROMIDE 1.5 MG PATCH.TD72 TD ONE (11:00)
[2019-07-05] MEDS ORDERED: OXYCODONE-ACETAMINOPHEN 5-325 MG TABLET PO PRN ×3 (11:11→12:07)
[2019-07-05] MEDS ORDERED: DIPHENHYDRAMINE HCL 50 MG/ML VIAL IV PRN (11:11)
[2019-07-05] MEDS ORDERED: PROMETHAZINE HCL INJ 25 MG/1 ML VIAL IV PRN ×2 (11:11)
[2019-07-05] MEDS ORDERED: FENTANYL CITRATE INJ/PF 100 MCG/2 ML AMPUL IV PRN ×3 (11:11)
[2019-07-05] MEDS ORDERED: MEPERIDINE HCL/PF INJ 25 MG/1 ML DISP.SYRIN IV PRN (11:11)
[2019-07-05] MEDS ORDERED: MORPHINE SULFATE 10 MG/ML INJ IV PRN (12:07)
[2019-07-05] MEDS ORDERED: ONDANSETRON HCL INJ/PF 4 MG/2 ML SDV IV PRN (12:07)
--- NOTE | 2019-07-05 12:13 | Operative Report ---
Operative Report DATE OF SURGERY: 07/05/19 PREOPERATIVE DIAGNOSIS: Persistent left carpal tunnel syndrome POSTOPERATIVE DIAGNOSIS: Above plus flexor tenosynovitis OPERATION: 1. Revision left carpal tunnel release with placement of nerve wrap. 2. Flexor tenosynovectomy left wrist SURGEON: SHERIF PAVON ANESTHESIA: GA COMPLICATIONS: None ESTIMATED BLOOD LOSS: Minimal PROCEDURE: Indication for above procedure: 59-year-old female who underwent open carpal tunnel release however postoperatively continue to have neuropathic symptoms which were actually worsening compared to her preoperative symptoms given persistent symptoms decision was made to proceed with operative intervention. Risks and benefits were explained patient verbalized understanding consented for surgical procedure. Procedure In Detail: Patient was seen and evaluated in the preoperative holding area. The upper extremity was initialized and marked. Patient received clindamycin IV for bacterial prophylaxis. Patient was taken back to the operative room where transferred to the operative table and placed under general anesthesia. Once they were adequately anesthetized a nonsterile tourniquet was placed on the upper extremity. A surgical team debriefing was performed ensuring all instrumentation was available, the surgical procedure was discussed with possi ble concerns reviewed. The upper extremity was prepped with chlorhexidine and alcohol and draped in a sterile fashion. A timeout was done identifying correct patient, procedure and extremity everyone in attendance agree with this and verbalized no concerns. The extremity was exsanguinated the tourniquet was inflated to 250 mmHg. Previous skin incision was utilized and extended proximally and distally. Blunt meticulous dissection was performed. The proximal aspect of the median nerve was identified and neurolysed in a proximal to distal direction. At the level of the wrist flexion crease there was significant scar tissue evident along with persistent volar antebrachial fascia resulting significant scarring to the underlying nerve with perineural fibrosis and compression. Under loupe magnification the median nerve was neurolysed from distal to proximal to this area of scar tissue. The recurrent motor branch, first, second and third webspace branches were all identified without evidence of compression or injury. Once the median nerve was adequate neurolysed proximal and distal to the area of compression the median nerve was dissected from the radial leaflet of the transverse carpal ligament which was causing scarring of the nerve and compression. Once adequately released the epineurium was freed from the underlying nerve to ensure no evidence of injury. There is no evidence of injury and complete continuity of the nerve. Small persistent median artery was identified and undisturbed. There is significant flexor tenosynovium throughout the carpal canal and thus flexor tenosynovectomy was performed to decrease risk of further inflammation and scar tissue. Given the amount of scar tissue patient developed along the wrist flexion crease decision was made to place a nerve wrap. A 10 mm x 40 mm Axogen nerve wrap was placed around the median nerve and secured with multiple horizontal mattress 6-0 nylon sutures. Tourniquet was then deflated. Any peripheral bleeding was controlled with bipolar cautery into the wound was dry. Wound was copiously irrigated with normal saline. 20 cc of 0.5% bupivacaine without epinephrine was injected for postoperative pain control. Incision was closed with interrupted 4-0 nylon horizontal mattress. Wound was dressed Xeroform 4 x 4's and patient was placed in a volar splint. Sponge counts, instrument counts, needle counts were correct. Patient was then awoken from anesthesia. Transferred from the operating room table to the operating room stretcher. There was no intraoperative complications patient tolerated procedure well stable to PACU. Postop plan: Patient will follow in the office in 2 weeks for wound check. May begin occupational therapy at that time pending patient's symptoms.
--- NOTE | 2019-07-05 12:15 | Discharge Summary ---
Discharge Summary (SDC) - Discharge Final Diagnosis: Left carpal tunnel syndrome Date of Surgery: 07/05/19 Discharge Date: 07/05/19 Condition: Good Forms: Return to Work Treatment or Instructions: Schedule Follow Up w/ Dr. Willian Carias @ [facility] for Surgery to be seen in 10-14 days or as scheduled [place]: [place]: [place]: May remove dressing on postop day #3, keep incision covered and dry. Ice and elevate May begin finger range of motion attempting to make full fist. Stool softener of choice when on pain medication. USE OF DYON-BHA-FOPLUPK IBUPROFEN: Ibuprofen (Advil, Nuprin, Medipren, Motrin IB) is a medication for fever and pain control. In addition, it has anti- inflammatory effects which may be beneficial, especially in the treatment of injuries. It's best to take ibuprofen with food. Persons with ulcer disease or allergy to aspirin should notify their physician of this before taking ibu profen. Ibuprofen can be given every four to six hours, for a total of four doses daily. Age Pain or fever dose Antiinflammatory dose 6-8 yr 200 mg (1 tab) 200 mg (1 tab) 9-11 yr 200 mg (1 tab) 200-400 mg (1-2 tab) 11-14 yr 200-400 mg (1-2 tab) 400 mg (2 tab) 15-adult 400 mg (2 tab) 600 mg (3 tab) ORAL NARCOTIC MEDICATION: You have been given a prescription for pain control. This medication is a narcotic. It's best taken with food, as nausea can result if taken on an empty stomach. Don't operate machinery or drive within six hours of taking this medication. Do not combine this medicine with alcohol, or with any medication which can cause sedation (such as cold tablets or sleeping pills) unless you get permission from the physician. Narcotics tend to cause constipation. If possible, drink plenty of fluids and eat a diet high in fiber and fruits. Please be aware that prescription narcotics also have the potential for abuse. People become addicted to these medications because of the general sense of wellbeing that they induce. This feeling along with a significant reduction in tension, anxiety, and aggression provides a stimulating seductive quality to these drugs. Once your pain is under control, we encourage you to discard your unused narcotics. Prescriptions: Oxycodone HCl/Acetaminophen [Percocet 5-325 mg Tablet] 1 tab PO Q6 PRN #25 tab PRN Reason: Referrals: CASSI SHAFFER PA-C [Primary Care Provider] - Discharge Diet: As Tolerated Respiratory Treatments at Home: Deep Breathing/Coughing Discharge Activity: No Lifting Over 10 Pounds, No Lifting/Push/Pulling Report the Following to Your Physician Immediately: Fever over 101 Degrees, Unu sual Bleeding, Redness, Swelling, Warmth, Increased Soreness
[2019-07-05] MEDS ORDERED: OXYCODONE-ACETAMINOPHEN 5-325 MG TABLET ONE (13:11)
[2019-07-05 14:07] VITALS: BP 149/82
== END 2019-07-05 14:17 | disposition home or self-care (01) ==
LOC: OROUT 07:32
PROVIDERS: ATTEND Orthopaedic Surgery
DX: G56.03 Carpal tunnel syndrome, bilateral upper limbs (principal); I10 Essential (primary) hypertension; E11.9 Type 2 diabetes mellitus without complications; K21.9 Gastro-esophageal reflux disease without esophagitis; M65.832 Other synovitis and tenosynovitis, left forearm; R01.1 Cardiac murmur, unspecified; E66.9 Obesity, unspecified; Z68.33 Body mass index [BMI] 33.0-33.9, adult
CPT/HCPCS: 36415; 82962; 85025; 80048; 01810; 64721; 25115; J2250; J3490; J1100; J1885; J3010; J2765; J1170; J2405; J2704; S0028; 1810; C9353

== ENCOUNTER 2019-07-22 16:56 | Emergency (ER) | payer OTHER ==
[2019-07-22] MEDS ORDERED: ONDANSETRON HCL INJ/PF 4 MG/2 ML SDV IV ONE (18:52)
--- NOTE | 2019-07-22 18:57 | ER Document Report ---
ED Medical Screen (RME) - General Chief Complaint: Chest Pain Stated Complaint: CHEST PAIN Time Seen by Provider: 07/22/19 18:40 Primary Care Provider: CASSI SHAFFER PA-C [Primary Care Provider] - Follow up as needed Mode of Arrival: Ambulatory Information source: Patient Notes: 59-year-old female presented to ED for nausea vomiting or diarrhea since 430 this morning. She states she has had some ED episodes of vomiting and ever she cannot encounter. She states now she has epigastric pain right below her breastbone. She has a history of seizures diabetes high blood pressure diverticulitis. She had a bilateral tubal ligation and her gallbladder removed. She is also had carpal tunnel surgery recently. 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 Patient is alert oriented respirations regular and unlabored speaking in full sentences. I have ordered blood urine and Zofran IV until she can get in a room. I have greeted and performed a rapid initial assessment of this patient. A comprehensive ED assessment and evaluation of the patient, analysis of test results and completion of medical decision making process will be conducted by an additional ED providers. TRAVEL OUTSIDE OF THE [place] IN LAST 30 DAYS: No - Related Data Allergies/Adverse Reactions: Penicillins Allergy (Severe, Verified 07/22/19 16:58) Anaphylactic shock sulfamethoxazole [From Septra] Allergy (Severe, Verified 07/22/19 16:58) Diarrhea trimethoprim [From Septra] Allergy (Severe, Verified 07/22/19 16:58) Diarrhea doxycycline [Doxycycline] Allergy (Intermediate, Verified 07/22/19 16:58) Generalized Itching levofloxacin [From Levaquin] Allergy (Intermediate, Verified 07/22/19 16:58) N&V coconut Allergy (Verified 07/22/19 16:58) Past Medical History - Social History Chew tobacco use (# tins/day): No Frequency of alcohol use: None Drug Abuse: None - Past Medical History Cardiac Medical History: Reports: Hx Hypercholesterolemia, Hx Hypertension Denies: Hx Coronary Artery Disease, Hx Heart Attack Pulmonary Medical History: Denies: Hx Asthma, Hx Bronchitis, Hx COPD, Hx Pneumonia Neurological Medical History: Reports: Hx Seizures - vgs Endocrine Medical History: Reports: Hx Diabetes Mellitus Type 2 Renal/ Medical History: Denies: Hx Peritoneal Dialysis GI Medical History: Reports: Hx Gastroesophageal Reflux Disease Musculoskeltal Medical History: Reports Hx Arthritis Psychiatric Medical History: Reports: Hx Anxiety, Hx Attention Deficit Hyperactivity Disorder, Hx Depression Past Surgical History: Reports: Hx Abdominal Surgery - HERNIA, Hx Section, Hx Cholecystectomy, Hx Inguinal Hernia, Hx Neurologic Surgery - Vagal nerve stimulator, Hx Tubal Ligation, Other - Vagal nerve stimulator implant for seizure disorder - Immunizations Immunizations up to date: No Hx Diphtheria, Pertussis, Tetanus Vaccination: No History of Influenza Vaccine for 08/2017 - 01/2018 Season: Yes Physical Exam - Vital signs Vitals: Temp Pulse Resp BP Pulse Ox 98.8 F 107 H 20 144/94 H 91 L 07/22/19 17:59 07/22/19 17:59 07/22/19 17:59 07/22/19 17:59 07/22/19 17:59 Course - Vital Signs Vital signs: Temp Pulse Resp BP Pulse Ox 98.8 F 107 H 20 144/94 H 91 L 07/22/19 17:59 07/22/19 17:59 07/22/19 17:59 07/22/19 17:59 07/22/19 17:59 Doctor's Discharge - Discharge Referrals: CASSI SHAFFER PA-C [Primary Care Provider] - Follow up as needed
[2019-07-22 19:24] LABS: ABSOLUTE EOSINOPHILS # (AUTO) 0.2 10^3/uL (0.0-0.6); ABSOLUTE LYMPHOCYTES (AUTO) 1.6 10^3/uL (0.5-4.7); ABSOLUTE MONOCYTES (AUTO) 0.8 10^3/uL (0.1-1.4); ABSOLUTE NEUT (AUTO) 8.8 10^3/uL (1.7-8.2); BASOPHILS % (AUTO) 0.4 % (0-2); EOSINOPHILS % (AUTO) 1.7 % (0-6); HEMATOCRIT 43.1 % (36.0-47.0); HEMOGLOBIN 14.3 g/dL (12.0-15.5); LYMPHOCYTES % (AUTO) 14.1 % (13-45); MEAN CORPUSCULAR HEMOGLOBIN 29.1 pg (27.0-33.4); MEAN CORPUSCULAR HGB CONC 33.3 g/dL (32.0-36.0); MEAN CORPUSCULAR VOLUME 88 fl (80-97); MONOCYTES % (AUTO) 7.2 % (3-13); PLATELET COUNT 446 10^3/uL (150-450); RED BLOOD COUNT 4.92 10^6/uL (3.72-5.28); RED CELL DISTRIBUTION WIDTH 14.3 % (11.5-14.0); SEGMENTED NEUTROPHILS % (AUTO) 76.6 % (42-78); TOTAL CELLS COUNTED % (AUTO) 100 %; WHITE BLOOD COUNT 11.5 10^3/uL (4.0-10.5)
[2019-07-22 19:41] LABS: ALKALINE PHOSPHATASE 65 U/L (38-126); ANION GAP 15 (5-19); ASPARTATE AMINO TRANSFERASE 18 U/L (14-36); BILIRUBIN,DIRECT 0.4 mg/dL (0.0-0.4); BILIRUBIN,TOTAL 0.6 mg/dL (0.2-1.3); BLOOD UREA NITROGEN 9 mg/dL (7-20); CARBON DIOXIDE 23 mmol/L (22-30); CHLORIDE 96 mmol/L (98-107); GLUCOSE 153 mg/dL (75-110); POTASSIUM 4.3 mmol/L (3.6-5.0); TOTAL PROTEIN 8.1 g/dL (6.3-8.2)
[2019-07-22 19:51] LABS: APPEARANCE,URINE CLEAR; BILIRUBIN,URINE NEGATIVE (NEGATIVE); COLOR,URINE YELLOW; GLUCOSE, URINE NEGATIVE (NEGATIVE); KETONES,URINE NEGATIVE (NEGATIVE); LEUKOCYTE ESTERASE,URINE NEGATIVE (NEGATIVE); NITRITE,URINE NEGATIVE (NEGATIVE); PROTEIN,URINE NEGATIVE (NEGATIVE); URINE SPECIFIC GRAVITY 1.015; UROBILINOGEN,URINE NEGATIVE mg/dL (<2.0)
--- NOTE | 2019-07-22 20:58 | RADIOLOGY REPORT (SQ) ---
EXAM DESCRIPTION: XR CHEST 2 VIEWS COMPLETED DATE/TME: 07/22/2019 18:53 CLINICAL HISTORY: 59 years Female epigastric pain COMPARISON: 09/22/2017. FINDINGS: The cardiomediastinal silhouette appears unremarkable. No consolidating infiltrates or pleural effusions. No pneumothorax. Stimulator over the left chest. IMPRESSION: No acute abnormality is identified.
[2019-07-22] MEDS ORDERED: ONDANSETRON 4 MG TAB.RAPDIS PO ONE (22:22)
[2019-07-22] MEDS ORDERED: METOCLOPRAMIDE HCL 10 MG TABLET PO ONE (22:22)
[2019-07-22] MEDS ORDERED: ACETAMINOPHEN 325 MG TABLET PO ONE (22:23)
--- NOTE | 2019-07-22 23:49 | ER Document Report ---
ED General - General Chief Complaint: Chest Pain Stated Complaint: CHEST PAIN Time Seen by Provider: 07/22/19 18:40 Primary Care Provider: CASSI SHAFFER PA-C [Primary Care Provider] - Follow up in 3-5 days Mode of Arrival: Ambulatory Notes: Patient is a pleasant 59-year-old female presents with complaint of some nausea, episode of vomiting, and diarrhea. Symptoms been ongoing for 1 to 2 days. Patient denies any blood in her stool. She denies any blood or emesis. She denies significant abdominal pain. She said previous cholecystectomy. No fevers. No other complaints at this time. She did have some recent antibiotic use just over a week ago when she was treated for UTI with Macrobid. TRAVEL OUTSIDE OF THE [place] IN LAST 30 DAYS: No - Related Data Allergies/Adverse Reactions: Penicillins Allergy (Severe, Verified 07/22/19 16:58) Anaphylactic shock sulfamethoxazole [From Septra] Allergy (Severe, Verified 07/22/19 16:58) Diarrhea trimethoprim [From Septra] Allergy (Severe, Verified 07/22/19 16:58) Diarrhea doxycycline [Doxycycline] Allergy (Intermediate, Verified 07/22/19 16:58) Generalized Itching levofloxacin [From Levaquin] Allergy (Intermediate, Verified 07/22/19 16:58) N&V coconut Allergy (Verified 07/22/19 16:58) Past Medical History - General Information source: Patient - Social History Smoking Status: Never Smoker Chew tobacco use (# tins/day): No Frequency of alcohol use: None Drug Abuse: None Family History: Arthritis, CAD, CVA, DM, Hyperlipidemia, Hypertension, Malignancy, Thyroid Disfunction Patient has suicidal ideation: No Patient has homicidal ideation: No - Past Medical History Cardiac Medical History: Reports: Hx Hypercholesterolemia, Hx Hypertension Denies: Hx Coronary Artery Disease, Hx Heart Attack Pulmonary Medical History: Denies: Hx Asthma, Hx Bronchitis, Hx COPD, Hx Pneumonia Neurological Medical History: Reports: Hx Seizures - vgs Endocrine Medical History: Reports: Hx Diabetes Mellitus Type 2 Renal/ Medical History: Denies: Hx Peritoneal Dialysis GI Medical History: Reports: Hx Gastroesophageal Reflux Disease Musculoskeletal Medical History: Reports Hx Arthritis Psychiatric Medical History: Reports: Hx Anxiety, Hx Attention Deficit Hyperactivity Disorder, Hx Depression Past Surgical History: Reports: Hx Abdominal Surgery - HERNIA, Hx Section, Hx Cholecystectomy, Hx Inguinal Hernia, Hx Neurologic Surgery - Vagal nerve stimulator, Hx Tubal Ligation, Other - Vagal nerve stimulator implant for seizure disorder - Immunizations Immunizations up to date: No Hx Diphtheria, Pertussis, Tetanus Vaccination: No Review of Systems - Review of Systems Notes: My Normal Review Basic REVIEW OF SYSTEMS: CONSTITUTIONAL : Denies fever, chills, or sweats. Denies recent illness. RESPIRATORY: Denies cough, cold, or chest congestion. Denies shortness of breath, difficulty breathing, or wheezing. GASTROINTESTINAL: Denies abdominal pain. Nausea vomiting and diarrhea GENITOURINARY: Denies difficulty urinating, painful urination, burning, frequency, or blood in urine. MUSCULOSKELETAL: Denies neck or back pain or joint pain or swelling. SKIN: Denies rash or skin lesions. NEUROLOGICAL: Denies altered mental status or loss of consciousness. mild headache. Denies weakness or paralysis or loss of use of either side. Denies problems with gait or speech. Denies sensory or motor loss. ALL OTHER SYSTEMS REVIEWED AND NEGATIVE. Physical Exam - Vital signs Vitals: Temp Pulse Resp BP Pulse Ox 98.8 F 107 H 20 144/94 H 91 L 07/22/19 17:59 07/22/19 17:59 07/22/19 17:59 07/22/19 17:59 07/22/19 17:59 - Notes Notes: General Appearance: Well nourished, alert, cooperative, no acute distress, no obvious discomfort. Well-appearing. Vitals: reviewed, See vital signs table. Head: no swelling or tenderness to the head Eyes: PERRL, EOMI, Conjuctiva clear Mouth: No decreasd moisture Lungs: No wheezing, No rales, No rhonci, No accessory muscle use, good air exchange bilaterally. Heart: Normal rate, Regular rythm, No murmur, no rub Abdomen: Normal BS, soft, No rigidity, no significant reproducible pain to palpation of abdomen., No guarding, no rebound, no abdominal masses, no organ omegaly Extremities: strength 5/5 in all extremities, good pulses in all extremities, no swelling or tenderness in the extremities, no edema. Skin: warm, dry, appropriate color, no rash Neuro: speech clear, oriented x 3, normal affect, responds appropriately to questions. Course - Re-evaluation Re-evalutation: 07/23/19 06:38 Patient does have a mild leukocytosis. Abdominal exam is nontender palpation. She does have some diarrhea and some recent antibiotic use however diarrhea did not start until last 24 hours and she is completed antibiotic course 4 days ago. I did think C. difficile is likely but did still send C. difficile testing. Patient was ready to go home therefore we will call her with results of her C. difficile testing. She denies any fevers. No other complaints at this time. Patient feels much improved after receiving Reglan as well as Zofran. I will discharge home with his medications. I encouraged have a low threshold to return to ER if she has abdominal pain, fevers, intractable vomiting, bloody stools, or she feels like she is worsening in any way. Patient agrees with plan will be discharged home. Dictation of this chart was performed using voice recognition software; therefore, there may be some unintended grammatical errors. - Vital Signs Vital signs: Temp Pulse Resp BP Pulse Ox 98.6 F 81 16 136/80 H 96 07/22/19 23:58 07/22/19 23:58 07/22/19 23:58 07/22/19 23:58 07/22/19 23:58 - Laboratory Result Diagrams: 07/22/19 19:00 07/22/19 19:00 Laboratory results interpreted by me: 07/22/19 07/22/19 07/22/19 18:57 19:00 19:00 WBC 11.5 H RDW 14.3 H Absolute Neuts (auto) 8.8 H Sodium 134.4 L Chloride 96 L Glucose 153 H POC Glucose 147 H Discharge - Discharge Clinical Impression: Vomiting and diarrhea Condition: Good Disposition: HOME, SELF-CARE Additional Instructions: Your laboratory evaluation was unremarkable. The only test pending is your C/diff test C. difficile is a bacteria that sometimes occurs after being on antibiotics. This can cause diarrhea. If this test is positive I will call you and call in a prescription for the appropriate anitbiotic. You should return to ER immediately if you have worsening diarrhea, fevers, worsening abdominal pain, intractable vomiting, or if you feel like you are worsening in any way. Prescriptions: Metoclopramide HCl [Reglan 10 mg Tablet] 1 tab PO ASDIR PRN #15 tablet PRN Reason: Ondansetron [Zofran Odt 4 mg Tablet] 1 tab PO Q4H PRN #15 tab.rapdis PRN Reason: For Nausea/Vomiting Referrals: CASSI SHAFFER PA-C [Primary Care Provider] - Follow up in 3-5 days
[2019-07-22] MEDS ORDERED: ONDANSETRON ODT 4 MG TAB (6 TAB/ER DISP) PO PRN (23:53)
[2019-07-22 23:59] VITALS: BP 136/80
--- NOTE | 2019-07-24 18:33 | EKG REPORT ---
SEVERITY:- ABNORMAL ECG - SINUS RHYTHM PROBABLE LEFT ATRIAL ABNORMALITY BORDERLINE R WAVE PROGRESSION, ANTERIOR LEADS VS LVH ABNORMAL T, CONSIDER ISCHEMIA, LATERAL LEADS : Confirmed by: Alva Good 24-Jul-2019 18:33:20
== END 2019-07-23 00:03 | disposition home or self-care (01) ==
LOC: ER 16:56
DX: R07.9 Chest pain, unspecified (principal); R11.2 Nausea with vomiting, unspecified; R19.7 Diarrhea, unspecified; I10 Essential (primary) hypertension; E11.9 Type 2 diabetes mellitus without complications; E78.00 Pure hypercholesterolemia, unspecified; Z88.0 Allergy status to penicillin; Z88.3 Allergy status to other anti-infective agents; Z90.49 Acquired absence of other specified parts of digestive tract; Z98.51 Tubal ligation status
CPT/HCPCS: 93005; 36415; 82962; 83690; 85025; 80053; 81001; 84484; 87493; 87324; 71046; 93010; S0119; J2405; 96374; 99284

== ENCOUNTER 2019-08-14 08:29 | Emergency (ER) | payer OTHER ==
[2019-08-14] MEDS ORDERED: LIDOCAINE 2% VISCOUS SOLN 20 ML UDCUP PO ONE (09:03)
[2019-08-14] MEDS ORDERED: HYDROCODONE/ACETAMINOPHEN 5-325 MG (6 TAB/ER DISP) PO PRN (10:16)
--- NOTE | 2019-08-14 10:22 | ER Document Report ---
HPI - HPI Time Seen by Provider: 08/14/19 10:08 Pain Level: 2 Notes: Patient is a 59-year-old female with a history of hypertension, diabetes, seizure disorder who presents complaining of dental pain to #20 for the past 2 to 3 days. She has noticed some left lower jaw swelling as well. She is able to eat and drink without difficulty, but does have decreased p.o. intake due to discomfort with chewing. She is urinating normally. She has not noticed any other abscess or purulent discharge. No other concerns or complaints. Denies any headache, fever, injury, neck pain, excessive drooling, hoarseness, URI, sore throat, chest pain, palpitations, syncope, cough, shortness of breath, wheeze, dyspnea, abdominal pain, nausea/vomiting/diarrhea, urinary retention, dysuria, hematuria, or rash. - ROS Systems Reviewed and Negative: Yes All other systems reviewed and negative - REPRODUCTIVE Reproductive: DENIES: : Past Medical History - Social History Smoking Status: Never Smoker Family History: Arthritis, CAD, CVA, DM, Hyperlipidemia, Hypertension, Malignancy, Thyroid Disfunction Patient has suicidal ideation: No Patient has homicidal ideation: No - Past Medical History Cardiac Medical History: Reports: Hx Hypercholesterolemia, Hx Hypertension Denies: Hx Coronary Artery Disease, Hx Heart Attack Pulmonary Medical History: Denies: Hx Asthma, Hx Bronchitis, Hx COPD, Hx Pneumonia Neurological Medical History: Reports: Hx Seizures - vgs Endocrine Medical History: Reports: Hx Diabetes Mellitus Type 2 Renal/ Medical History: Denies: Hx Peritoneal Dialysis GI Medical History: Reports: Hx Gastroesophageal Reflux Disease Musculoskeletal Medical History: Reports Hx Arthritis Psychiatric Medical History: Reports: Hx Anxiety, Hx Attention Deficit Hyperactivity Disorder, Hx Depression Past Surgical History: Reports: Hx Abdominal Surgery - HERNIA, Hx Section, Hx Cholecystectomy, Hx Inguinal Hernia, Hx Neurologic Surgery - Vagal nerve stimulator, Hx Tubal Ligation, Other - Vagal nerve stimulator implant for seizure disorder - Immunizations Immunizations up to date: No Hx Diphtheria, Pertussis, Tetanus Vaccination: No Vertical Provider Document - CONSTITUTIONAL Agree With Documented VS: No - HR 90 during exam Notes: PHYSICAL EXAMINATION: GENERAL: Well-appearing, well-nourished and in no acute distress. HEAD: Atraumatic, normocephalic. EYES: Pupils equal round and reactive to light, extraocular movements intact, sclera anicteric, conjunctiva are normal. ENT: Nares patent and without discharge. oropharynx clear without exudates. No tonsilar hypertrophy or erythema. Moist mucous membranes. No sinus tenderness. Uvula midline. No palatine shift. No tongue protrusion. No respiratory compromise. Mouth: Poor dentition. + mild decay and mild gingivitis. No obvious abscess or discharge noted. + mild left lower jaw swelling. + tenderness to tooth #20. NECK: Normal range of motion, supple without lymphadenopathy. No rigidity/meningismus. LUNGS: Breath sounds clear to auscultation bilaterally and equal. No wheezes rales or rhonchi. HEART: Regular rate and rhythm without murmurs, rubs, gallops. NEUROLOGICAL: Cranial nerves grossly intact. Normal speech, normal gait. PSYCH: Normal mood, normal affect. SKIN: Warm, Dry, normal turgor, no rashes or lesions noted. - INFECTION CONTROL TRAVEL OUTSIDE OF THE [place] IN LAST 30 DAYS: No Course - Re-evaluation Re-evalutation: 08/14/19 10:18 Patient is an afebrile, well-hydrated, 59-year-old female who presents to the ED with dental pain, suspect nerve root etiology versus infection. Vitals are acceptable. PE is otherwise unremarkable. No I&D, labs, or imaging warranted at this time based on H&P. Viscous lidocaine dispensed today. I will send her home with a prescription for cleocin. Low suspicion for any meningitis, sepsis, peritonsillar/pharyngeal abscess, respiratory compromise, Braxton's, temporal arteritis, or other emergent systemic condition at this time. Patient is aware this condition can change from initial presentation and she needs to monitor symptoms closely. Conservative measures otherwise for symptoms. Call to schedule an appointment with a dentist for further evaluation and management. Recheck with your PCM this week as well. Return to the ED with any worsening/concerning symptoms otherwise as reviewed in discharge. Patient is in agreement. - Vital Signs Vital signs: Temp Pulse Resp BP Pulse Ox 98.8 F 112 H 16 147/81 H 93 08/14/19 08:33 08/14/19 08:33 08/14/19 08:33 08/14/19 08:33 08/14/19 08:33 Discharge - Discharge Clinical Impression: Pain, dental Condition: Stable Disposition: HOME, SELF-CARE Instructions: Toothache ([facility]), Clindamycin ([facility]) Additional Instructions: [place] and floss twice daily Maintain fluid intake Take antibiotics as directed Mouthwash, salt water gargles, peroxide rinse as needed Tylenol/ibuprofen as needed Recheck with PCM this week Call today/tomorrow and schedule an appointment with your dentist for further evaluation Return to the ED with any worsening symptoms and/or development of fever, headache, facial swelling, swelling of lips/tongue/throat, trouble swallowing, drooling, hoarseness, neck pain/stiffness, chest pain, palpitations, syncope, shortness of breath, trouble breathing, abdominal pain, n/v/d, numbness/t ingling, or other worsening symptoms that are concerning to you. Prescriptions: Clindamycin HCl [Cleocin 300 mg Capsule] 300 mg PO TID #30 capsule Forms: Elevated Blood Pressure Referrals: CASSI SHAFFER PA-C [Primary Care Provider] - Follow up as needed [facility] [Provider Group] - Follow up as needed
[2019-08-14 10:25] VITALS: BP 134/75
== END 2019-08-14 10:28 | disposition home or self-care (01) ==
LOC: ER 08:29
DX: K08.89 Other specified disorders of teeth and supporting structures (principal); I10 Essential (primary) hypertension; E11.9 Type 2 diabetes mellitus without complications; G40.909 Epilepsy, unspecified, not intractable, without status epilepticus
CPT/HCPCS: 99282; J3490

== ENCOUNTER 2019-08-21 19:20 | Emergency (ER) | payer OTHER ==
[2019-08-21] MEDS ORDERED: NORMAL SALINE 1000 ML 1,000 ML IV ONE ×2 (20:37→21:54)
[2019-08-21] MEDS ORDERED: FENTANYL CITRATE INJ/PF 100 MCG/2 ML AMPUL IV ONE (20:38)
[2019-08-21] MEDS ORDERED: ONDANSETRON HCL INJ/PF 4 MG/2 ML SDV IV ONE (20:38)
[2019-08-21 21:14] LABS: ABSOLUTE BASOPHILS # (AUTO) 0.1 10^3/uL (0.0-0.2); ABSOLUTE EOSINOPHILS # (AUTO) 0.3 10^3/uL (0.0-0.6); ABSOLUTE LYMPHOCYTES (AUTO) 3.7 10^3/uL (0.5-4.7); ABSOLUTE NEUT (AUTO) 9.4 10^3/uL (1.7-8.2); BASOPHILS % (AUTO) 0.7 % (0-2); HEMATOCRIT 35.6 % (36.0-47.0); HEMOGLOBIN 12.1 g/dL (12.0-15.5); LYMPHOCYTES % (AUTO) 25.6 % (13-45); MEAN CORPUSCULAR HEMOGLOBIN 29.4 pg (27.0-33.4); MEAN CORPUSCULAR HGB CONC 33.9 g/dL (32.0-36.0); MEAN CORPUSCULAR VOLUME 87 fl (80-97); MONOCYTES % (AUTO) 7.1 % (3-13); PLATELET COUNT 570 10^3/uL (150-450); RED CELL DISTRIBUTION WIDTH 14.4 % (11.5-14.0); SEGMENTED NEUTROPHILS % (AUTO) 64.6 % (42-78); TOTAL CELLS COUNTED % (AUTO) 100 %; WHITE BLOOD COUNT 14.6 10^3/uL (4.0-10.5)
[2019-08-21 21:34] LABS: ANION GAP 14 (5-19); BLOOD UREA NITROGEN 10 mg/dL (7-20); CALCIUM 9.9 mg/dL (8.4-10.2); CARBON DIOXIDE 26 mmol/L (22-30); CHLORIDE 91 mmol/L (98-107); GLUCOSE 92 mg/dL (75-110); POTASSIUM 4.7 mmol/L (3.6-5.0)
[2019-08-21] MEDS ORDERED: HYDROMORPHONE HCL INJ/PF 2 MG/ML AMPULE IV ONE (21:54)
--- NOTE | 2019-08-21 23:19 | RADIOLOGY REPORT (SQ) ---
CLINICAL HISTORY: pain, evaluate for abscess COMPARISON: None. TECHNIQUE: CT NECK WITH IV CONTRAST on 08/21/2019 10:08 PM CDT This exam was performed according to our departmental dose-optimization program, which includes automated exposure control, adjustment of the mA and/or kV according to patient size and/or use of iterative reconstruction technique. FINDINGS: The visualized portions of the brain and orbits are normal. The oral cavity, oropharynx and nasopharynx are normal. There is mild soft tissue swelling overlying the anterior left mandible. There is suggestion of the superficial abscess measuring 0.6 x 2.3 cm adjacent to multiple periapical lucencies involving the left mandibular premolars and molars. There is overlying soft tissue stranding. The parapharyngeal fat planes are preserved. The hypopharynx is unremarkable. The parotid and submandibular glands are grossly within normal limits. No intrinsic mass lesions are seen. . The paranasal sinuses and mastoid air cells are clear. No definite pathologically enlarged lymph nodes are identified. The thyroid gland is normal in size and configuration. The thoracic inlet is normal. The superior mediastinum and lung apices are normal. No acute osseous abnormalities are identified. IMPRESSION: Dental abscess involving the anterior left mandible.
[2019-08-22] MEDS ORDERED: DEXAMETHASONE SOD PHOS INJ 10 MG/1 ML VIAL IV ONE (00:13)
[2019-08-22] MEDS ORDERED: CLINDAMYCIN 900 MG/D5W RTU 900 MG/50 ML RTUPB IV ONE (00:13)
[2019-08-22] MEDS ORDERED: HYDROMORPHONE HCL INJ/PF 2 MG/ML AMPULE IV ONE (00:13)
[2019-08-22] MEDS ORDERED: LEVETIRACETAM 1000 MG/NACL-ISO 1,000 MG/100 ML RTUPB IV ONE (01:15)
[2019-08-22] MEDS ORDERED: LAMOTRIGINE 100 MG TABLET PO ONE (01:15)
[2019-08-22] MEDS ORDERED: LORAZEPAM INJ 2 MG/1 ML VIAL IV ONE (01:16)
[2019-08-22 02:04] VITALS: BP 136/82
--- NOTE | 2019-08-22 02:05 | ER Document Report ---
Entered by AJITH SOARES SCRIBE 08/21/192031 Acting as scribe for:HAKEEM HARRIS DO ED Oral Problem - General Chief Complaint: Jaw Pain Stated Complaint: MOUTH PAIN,THROAT PAIN Time Seen by Provider: 08/21/19 19:52 Mode of Arrival: Ambulatory Information source: Patient Notes: Patient is a 59-year-old female who presents to the emergency department today with complaints of dental pain. Patient states she had two bad teeth that both had abscesses, and she was put on clindamycin and referred to oral surgery. Patient had these 2 teeth pulled 3 days ago. Patient was discharged on "higher strength" clindamycin and pain medication. Patient states she has not missed any medications and her pain is getting much worse. Patient states it hurts when she swallows. TRAVEL OUTSIDE OF THE [place] IN LAST 30 DAYS: No - Related Data Allergies/Adverse Reactions: Penicillins Allergy (Severe, Verified 08/14/19 08:30) Anaphylactic shock sulfamethoxazole [From Septra] Allergy (Severe, Verified 08/14/19 08:30) Diarrhea trimethoprim [From Septra] Allergy (Severe, Verified 08/14/19 08:30) Diarrhea doxycycline [Doxycycline] Allergy (Intermediate, Verified 08/14/19 08:30) Generalized Itching levofloxacin [From Levaquin] Allergy (Intermediate, Verified 08/14/19 08:30) N&V coconut Allergy (Verified 08/14/19 08:30) Past Medical History - General Information source: Patient - Social History Smoking Status: Unknown if Ever Smoked Cigarette use (# per day): No Frequency of alcohol use: None Drug Abuse: None Lives with: Family Family History: Arthritis, CAD, CVA, DM, Hyperlipidemia, Hypertension, Malignancy, Thyroid Disfunction Patient has suicidal ideation: No Patient has homicidal ideation: No - Past Medical History Cardiac Medical History: Reports: Hx Hypercholesterolemia, Hx Hypertension Neurological Medical History: Reports: Hx Seizures - vgs Endocrine Medical History: Reports: Hx Diabetes Mellitus Type 2 GI Medical History: Reports: Hx Gastroesophageal Reflux Disease Musculoskeletal Medical History: Reports Hx Arthritis Psychiatric Medical History: Reports: Hx Anxiety, Hx Attention Deficit Hyperactivity Disorder, Hx Depression Past Surgical History: Reports: Hx Abdominal Surgery - HERNIA, Hx Section, Hx Cholecystectomy, Hx Inguinal Hernia, Hx Neurologic Surgery - Vagal nerve stimulator, Hx Tubal Ligation, Other - Vagal nerve stimulator implant for seizure disorder - Immunizations Immunizations up to date: No Hx Diphtheria, Pertussis, Tetanus Vaccination: No Review of Systems - Review of Systems Constitutional: No symptoms reported EENT: See HPI, Mouth pain, Mouth swelling Cardiovascular: No symptoms reported Respiratory: No symptoms reported Gastrointestinal: No symptoms reported Genitourinary: No symptoms reported Female Genitourinary: No symptoms reported Musculoskeletal: No symptoms reported Skin: No symptoms reported Hematologic/Lymphatic: No symptoms reported Neurological/Psychological: No symptoms reported -: Yes All other systems reviewed and negative Physical Exam - Vital signs Vitals: Temp Pulse Resp BP Pulse Ox 98.7 F 84 18 154/96 H 98 08/21/19 19:24 08/21/19 19:24 08/21/19 19:24 08/21/19 19:24 08/21/19 19:24 - Notes Notes: Physical Exam: General: Alert, appears uncomfortable. HEENT: Normocephalic. Atraumatic. PERRL. Extraocular movements intact. Oropharynx clear. Dry oral mucosa. Tenderness with palpation at the angle of the left mandible. Some streaking erythema from L angle of jaw to midline. No sublingual or submandibular edemaor induration. Submental TTP. Neck: Supple. Non-tender. Respiratory: No respiratory distress. Clear and equal breath sounds bilaterally. Cardiovascular: Regular rate and rhythm. Abdominal: Normal Inspection. Non-tender. No distension. Normal Bowel Sounds. Back: No gross abnormalities. Extremities: Moves all four extremities. Upper extremities: Normal inspection. Normal ROM. Lower extremities: Normal inspection. No edema. Normal ROM. Neurological: Normal cognition. AAOx4. Normal speech. Psychological: Normal affect. Normal Mood. Skin: Warm. Dry. Normal color. Course - Re-evaluation Re-evalutation: 08/21/19 23:30 Called [facility] to speak to Doctor Rickey Pizarro, oral surgeon. Will be paged. Waiting for call back. 08/22/19 00:14 Dr. Pizarro returned call, [facility] medicine will take the patient for transfer. 08/22/19 00:[address] Wolfe. Patient will be accepted to PCU. No airway compromise. Patient is a 59-year-old female who comes in status post tooth extraction last week complaining of left dental jaw pain with some streaking erythema and tenderness to palpation in her submental area as well. CT showing abscess in stranding concerning for facial cellulitis. No evidence for Shimon's angina. Patient with trismus initially it is somewhat improved. Also appears dehydrated on blood work and clinically. Patient states that she has been taking clindamycin as instructed. She has multiple allergies. Culture sent. Clindamycin given the emergency department. Patient is also been given her seizure medication here. Discussed with [facility] and hospital[facility] Patient will be transferred there via EMS. Stable at the time of transfer. 08/22/19 02:04 Transport is here. Patient is medically stable for transport with no evidence for airway compromise. - Vital Signs Vital signs: Temp Pulse Resp BP Pulse Ox 97.7 F 82 16 144/69 H 98 08/22/19 01:09 08/22/19 01:09 08/22/19 01:09 08/22/19 01:09 08/21/19 19:24 - Laboratory Result Diagrams: 08/21/19 21:02 08/21/19 21:02 Laboratory results interpreted by me: 08/21/19 08/21/19 21:02 21:02 WBC 14.6 H Hct 35.6 L RDW 14.4 H Plt Count 570 H Absolute Neuts (auto) 9.4 H Sodium 131.2 L Chloride 91 L Critical Care Note - Critical Care Note Total time excluding time spent on procedures (mins): 60 - Evaluation and management of dental pain, possible facial cellulitis, multiple re-evaluations, coordination of transfer Discharge - Discharge Clinical Impression: Dental abscess, Facial cellulitis, Seizure disorder Condition: Stable Disposition: [facility] I personally performed the services described in the documentation, reviewed and edited the documentation which was dictated to the scribe in my presence, and it accurately records my words and actions.
== END 2019-08-22 02:34 | disposition short-term general hospital (02) ==
LOC: ER 19:20
DX: G40.909 Epilepsy, unspecified, not intractable, without status epilepticus (principal); L03.211 Cellulitis of face; K04.7 Periapical abscess without sinus; R68.84 Jaw pain; E78.00 Pure hypercholesterolemia, unspecified; I10 Essential (primary) hypertension; E11.9 Type 2 diabetes mellitus without complications; Z88.0 Allergy status to penicillin; Z90.49 Acquired absence of other specified parts of digestive tract; Z98.51 Tubal ligation status; Z88.2 Allergy status to sulfonamides
CPT/HCPCS: 36415; 87040; 85025; 80048; 83605; 70491; J3010; J3490 ×2; J1170 ×2; J2060; J2405; J7030; J1100; J1953; 96361; 96365; 96367; 96375; 96376; 99291

== ENCOUNTER → 2019-09-06 | Outpatient (CLI) | payer OTHER ==
--- NOTE | 2019-09-07 17:00 | NEURO WORKBENCH EEG REPORT ---
EEG Report Patient: Sravanthi Dillon ID: [id number] Referring Doctor: Diego Menezes Date: 09/06/2019 Reason for study: Evaluate Epileptiform activity Medications: Amaryl, Ambien, Amlodipine, Valsarton, Ativan, Cymbalta, Gabapentin, Keppra, Lamictal, Omeprozole, Metformin, Trazodone, Aspirin History: This is a 59 year old female with a history of diabetes, HTN, hernia repair, cholecystectomy, right temporal artery biopsy, epilepsy diagnosed at age 37. Last seizure was in January 2019. Brain MRI in November 2018 was normal. This EEG was requested for evaluation of epileptiform activity. EEG Interpretation: This EEG was recorded during wakefulness, stage I, and stage II sleep. Frequent transitions between wakefulness and stage I sleep occurred. The awake EEG is characterized by a reactive posterior dominant rhythm (PDR) of approximately 10 Hz. The remainder of the background consisted of diffuse low amplitude beta activity with alpha activity. The EEG is symmetric in amplitudes and frequencies. There were very frequent and prominent, symmetric, positive occipital sharp waveforms occurring during wakefulness only during periods with the eyes opened (frequent eye blink artifact noted) consistent with lambda waves (normal variant). Photic stimulation resulted in prominent photic driving, and there was no epileptiform activity elicited with photic stimulation. Stage I sleep was achieved and characterized by slow rolling eye movements, slowing of the background rhythm, and vertex waves. Stage II sleep was achieved and symmetric sleep spindles were noted. Positive Occipital Sharp Transients of Sleep (POSTs) were also noted. There were no epileptiform abnormalities (no sharp waves and no spikes). There were no seizures. The EKG showed a regular rhythm with typically 65-75 beats per minute. EEG Impression: This EEG is within normal limits for age. Diffuse beta activity can be seen with medications such as benzodiazepines. There was no epileptiform activity or seizures. However, note that the patient is taking Ativan, Gabapentin, Keppra, and Lamictal which may suppress interictal epileptiform activity. A single normal routine EEG does not rule out the possibility of epilepsy. If there is high clinical suspicion for epilepsy, then additional EEG evaluation should be considered with a sleep-deprived EEG or more prolonged EEG monitoring. INTERPRETING NEUROLOGIST: Sonny Lambert MD Board certified by the [place] [employer] in Neurology, Clinical Neurophysiology, and Sleep Medicine [facility]
== END ==
LOC: NEURO 12:55
PROVIDERS: ATTEND Pediatrics
DX: G40.909 Epilepsy, unspecified, not intractable, without status epilepticus (principal)
CPT/HCPCS: 95819

== ENCOUNTER → 2020-01-26 | Outpatient (CLI) | payer OTHER ==
--- NOTE | 2020-01-26 14:14 | RADIOLOGY REPORT (SQ) ---
EXAM DESCRIPTION: MRI HEAD COMBO COMPLETED DATE/TIME: 01/26/2020 1:10 pm REASON FOR STUDY: G40.219 LOCAL-REL SYMPTC EPI W CMPLX PART SEIZ, NTRCT, W/O STAT EPI, R26.89 G40.21 9 LOCAL-REL SYMPTC EPI W CMPLX PART SEIZ, NTRCT, W/O S COMPARISON: 11/25/2018 TECHNIQUE: Multiplanar imaging includes noncontrasted T1, T2, FLAIR, diffusion with ADC map and post gadolinium contrast T1 sequences. Images stored on PACS. CONTRAST TYPE AND DOSE: 20 mL Dotarem. RENAL FUNCTION: Not indicated. ACR Type II contrast agent associated with few, if any, unconfounded cases of NSF LIMITATIONS: None. FINDINGS: ANATOMY: No anomalies. Normal vascular flow voids. Pituitary fossa normal. CSF SPACES: Normal in size and contour. No hemorrhage. CEREBRUM: Sulci and gyri normal in size and contour. Normal white matter signal on FLAIR imaging. No evidence of hemorrhage, mass, or extraaxial fluid collection. No abnormal enhancement post contrast. POSTERIOR FOSSA: No signal alteration. No hemorrhage. No edema, masses, or mass effect. Internal ramandeep tory canals, cerebellopontine angles, mastoids normal. No enhancing lesions. No abnormal enhancement post contrast. DIFFUSION IMAGING: Negative for acute or subacute infarction. ORBITS: No masses. Globes normal. PARANASAL SINUSES: No fluid levels. Mucosa normal. OTHER: No other significant finding. IMPRESSION: Normal brain. EVIDENCE OF ACUTE STROKE: NO. TECHNICAL DOCUMENTATION: JOB ID: [id number] 2010 [employer]- All Rights Reserved Reading location - IP/workstation name: [email or web address]
--- NOTE | 2020-01-26 14:18 | RADIOLOGY REPORT (SQ) ---
EXAM DESCRIPTION: CHEST 2 VIEWS COMPLETED DATE/TIME: 01/26/2020 12:13 pm REASON FOR STUDY: R07.9 CHEST PAIN, UNSPECIFIED COMPARISON: 07/22/2019 EXAM PARAMETERS: NUMBER OF VIEWS: two views TECHNIQUE: Digital Frontal and Lateral radiographic views of the chest acquired. RADIATION DOSE: NA LIMITATIONS: none FINDINGS: LUNGS AND PLEURA: No opacities, masses or pneumothorax. No pleural effusion. MEDIASTINUM AND HILAR STRUCTURES: No masses or contour abnormalities. HEART AND VASCULAR STRUCTURES: Heart normal size. No evidence for failure. BONES: No acute findings. HARDWARE: Monitoring device. OTHER: No other significant finding. IMPRESSION: NO ACUTE RADIOGRAPHIC FINDING IN THE CHEST. TECHNICAL DOCUMENTATION: JOB ID: [id number] 2010 [employer]- All Rights Reserved Reading location - IP/workstation name: [email or web address]
== END ==
LOC: RAD 11:42
PROVIDERS: ATTEND Specialist
DX: R56.9 Unspecified convulsions (principal); R26.9 Unspecified abnormalities of gait and mobility; R07.9 Chest pain, unspecified
CPT/HCPCS: 82565; 70553; 71046; A9576

== ENCOUNTER 2020-05-25 14:04 | Emergency (ER) | payer OTHER ==
[2020-05-25] MEDS ORDERED: ACETAMINOPHEN 325 MG TABLET PO ONE (14:29)
[2020-05-25] MEDS ORDERED: ONDANSETRON 4 MG TAB.RAPDIS PO ONE (14:29)
--- NOTE | 2020-05-25 14:33 | ER Document Report ---
ED Medical Screen (RME) - General Chief Complaint: Head Injury Stated Complaint: HEAD INJURY Time Seen by Provider: 05/25/20 14:21 Primary Care Provider: YURI ALVARADO MD [Primary Care Provider] - Follow up as needed Mode of Arrival: Wheelchair Information source: Patient Notes: HPI; 60-year-old female presents to the emergency room after sustaining a head injury at work 2 days ago. Patient states she was cleaning out the refrigerator at work when she stood up too quickly hitting her head on the freezer door. She denied any loss of consciousness. Patient had a routine doctor's appointment yesterday and does not tell them about it. Today she went to the office with complaints of dizziness, nausea, and visual changes to her left eye. Patient was sent over from [facility] for further evaluation. She does continue to complain of nausea, dizziness, and feels like her vision to her left eye is still blurry. Patient complains of headache, neck pain, and jaw pain. She denies hitting her face however she does have a bruise to the left lower jawline. PE: Alert and oriented x3. Moderate distress noted. PERRLA, slight lag with lateral movement of the pupils. There is a small hematoma to the left scalp that is tender on palpation. Patient has pain when opening and closing her mouth with a tenderness to the left lower jaw and temporal region. Lungs: Are clear to auscultation without rales, rhonchi, wheezes. Heart: Regular rate rhythm without murmurs, rubs, gallops. I have greeted and performed a rapid initial assessment of this patient. A comprehensive ED assessment and evaluation of the patient, analysis of test results and completion of the medical decision making process will be conducted by additional ED providers. I have specifically instructed the patient or family members with the patient to immediately return to any nursing staff should anything change in the patient's condition or with their chief complaint. TRAVEL OUTSIDE OF THE [place] IN LAST 30 DAYS: No - Related Data Allergies/Adverse Reactions: Penicillins Allergy (Severe, Verified 08/14/19 08:30) Anaphylactic shock sulfamethoxazole [From Septra] Allergy (Severe, Verified 08/14/19 08:30) Diarrhea trimethoprim [From Septra] Allergy (Severe, Verified 08/14/19 08:30) Diarrhea doxycycline [Doxycycline] Allergy (Intermediate, Verified 08/14/19 08:30) Generalized Itching levofloxacin [From Levaquin] Allergy (Intermediate, Verified 08/14/19 08:30) N&V coconut Allergy (Verified 08/14/19 08:30) Past Medical History - Social History Chew tobacco use (# tins/day): No Frequency of alcohol use: None Drug Abuse: None - Past Medical History Cardiac Medical History: Reports: Hx Hypercholesterolemia, Hx Hypertension Denies: Hx Coronary Artery Disease, Hx Heart Attack Pulmonary Medical History: Denies: Hx Asthma, Hx Bronchitis, Hx COPD, Hx Pneumonia Neurological Medical History: Reports: Hx Seizures - vgs Endocrine Medical History: Reports: Hx Diabetes Mellitus Type 2 Renal/ Medical History: Denies: Hx Peritoneal Dialysis GI Medical History: Reports: Hx Gastroesophageal Reflux Disease Musculoskeltal Medical History: Reports Hx Arthritis Psychiatric Medical History: Reports: Hx Anxiety, Hx Attention Deficit Hyperactivity Disorder, Hx Depression Past Surgical History: Reports: Hx Abdominal Surgery - HERNIA, Hx S ection, Hx Cholecystectomy, Hx Inguinal Hernia, Hx Neurologic Surgery - Vagal nerve stimulator, Hx Tubal Ligation, Other - Vagal nerve stimulator implant for seizure disorder - Immunizations Immunizations up to date: No Hx Diphtheria, Pertussis, Tetanus Vaccination: No Doctor's Discharge - Discharge Referrals: YURI ALVARADO MD [Primary Care Provider] - Follow up as needed
--- NOTE | 2020-05-25 15:16 | RADIOLOGY REPORT (SQ) ---
EXAM DESCRIPTION: CT HEAD WITHOUT IMAGES COMPLETED DATE/TIME: 05/25/2020 3:01 pm REASON FOR STUDY: trauma COMPARISON: 01/26/2020 TECHNIQUE: Axial images acquired through the brain without intravenous contrast. Images reviewed wi th bone, brain and subdural windows. Additional sagittal and coronal reconstructions were generated. Images stored on PACS. All CT scanners at this facility use dose modulation, iterative reconstruction, and/or weight based d osing when appropriate to reduce radiation dose to as low as reasonably achievable (ALARA). [facility]: Dose Right [facility]: CareDose [facility]: Dose Right [facility]: Teradose 4D [facility]: Smart [employer] RADIATION DOSE: CT Rad equipment meets quality standard of care and radiation dose reduction techniq ues were employed. CTDIvol: 53.2 mGy. DLP: 964 mGy-cm. mGy. LIMITATIONS: None. FINDINGS: VENTRICLES: Normal size and contour. CEREBRUM: No masses. No hemorrhage. No midline shift. No evidence for acute infarction. Normal gra y/white matter differentiation. No areas of low density in the white matter. CEREBELLUM: No masses. No hemorrhage. No alteration of density. No evidence for acute infarction. EXTRAAXIAL SPACES: No fluid collections. No masses. ORBITS AND GLOBE: No intra- or extraconal masses. Normal contour of globe without masses. CALVARIUM: No fracture. PARANASAL SINUSES: No fluid or mucosal thickening. SOFT TISSUES: No mass or hematoma. OTHER: No other significant finding. IMPRESSION: NORMAL BRAIN CT WITHOUT CONTRAST. EVIDENCE OF ACUTE STROKE: NO. COMMENT: Quality ID # [id number]: Final reports with documentation of one or more dose reduction techniques (e.g., Automated exposure control, adjustment of the mA and/or kV according to patient size, use of iterative reconstruction technique) TECHNICAL DOCUMENTATION: JOB ID: [id number] 2010 [employer]- All Rights Reserved Reading location - IP/workstation name: [email or web address]
--- NOTE | 2020-05-25 15:19 | RADIOLOGY REPORT (SQ) ---
EXAM DESCRIPTION: CT CERVICAL SPINE WITHOUT IMAGES COMPLETED DATE/TIME: 05/25/2020 3:01 pm REASON FOR STUDY: trauma COMPARISON: None. TECHNIQUE: Axial images acquired through the cervical spine without intravenous contrast. Images re viewed with lung, soft tissue and bone windows. Reconstructed coronal and sagittal MPR images review ed. Images stored on PACS. All CT scanners at this facility use dose modulation, iterative reconstruction, and/or weight based d osing when appropriate to reduce radiation dose to as low as reasonably achievable (ALARA). [facility]: Dose Right [facility]: CareDose [facility]: Dose Right [facility]: Teradose 4D [facility]: [employer] RADIATION DOSE: CT Rad equipment meets quality standard of care and radiation dose reduction techniq ues were employed. CTDIvol: 25.2 mGy. DLP: 478 mGy-cm. mGy. LIMITATIONS: None. FINDINGS: ALIGNMENT: Anatomic. MINERALIZATION: Normal. VERTEBRAL BODIES: No fractures or dislocation. DISCS: Disc narrowing from C4-C7 with marginal osteophytes. FACETS, LATERAL MASSES, POSTERIOR ELEMENTS: No fractures. No dislocation. No acute findings. HARDWARE: None in the spine. VISUALIZED RIBS: No fractures. LUNG APICES AND SOFT TISSUES: No significant or acute findings. OTHER: No other significant finding. IMPRESSION: Degenerative disc disease and spondylosis. No acute finding. TECHNICAL DOCUMENTATION: JOB ID: [id number] Quality ID # [id number]: Final reports with documentation of one or more dose reduction techniques (e.g., Au tomated exposure control, adjustment of the mA and/or kV according to patient size, use of iterative reconstruction technique) 2010 [employer]- All Rights Reserved Reading location - IP/workstation name: [email or web address]
--- NOTE | 2020-05-25 15:23 | RADIOLOGY REPORT (SQ) ---
EXAM DESCRIPTION: CT FACIAL AREA WITHOUT IMAGES COMPLETED DATE/TIME: 05/25/2020 3:01 pm REASON FOR STUDY: trauma COMPARISON: None. TECHNIQUE: Noncontrasted images through the facial bones and orbits windowed for bone and soft tissu e. Additional coronal and sagittal reconstructed images reviewed. All images stored on PACS. All CT scanners at this facility use dose modulation, iterative reconstruction, and/or weight based d osing when appropriate to reduce radiation dose to as low as reasonably achievable (ALARA). [facility]: Dose Right [facility]: CareDose [facility]: Dose Right [facility]: Teradose 4D [facility]: [employer] RADIATION DOSE: CT Rad equipment meets quality standard of care and radiation dose reduction techniq ues were employed. CTDIvol: 30.4 mGy. DLP: 511 mGy-cm. LIMITATIONS: None. FINDINGS: FACIAL BONES: No fracture. ORBITS: The orbits are intact. The globes, extra-ocular muscles, and optic nerve sheath complexes ar e symmetric in appearance. There is no acute intraconal abnormality. PARANASAL SINUSES: Clear. There is no mucosal thickening or air-fluid level. The nasal septum is mi dline. The ostiomeatal complexes are patent. SOFT TISSUES: No mass or edema. INFERIOR BRAIN: No acute findings. OTHER: No other finding. IMPRESSION: No acute maxillofacial fracture. TECHNICAL DOCUMENTATION: JOB ID: [id number] Quality ID # [id number]: Final reports with documentation of one or more dose reduction techniques (e.g., Au tomated exposure control, adjustment of the mA and/or kV according to patient size, use of iterative reconstruction technique) 2010 [employer]- All Rights Reserved Reading location - IP/workstation name: [email or web address]
--- NOTE | 2020-05-25 16:18 | ER Document Report ---
HPI - HPI Patient complains to provider of: Head injury Time Seen by Provider: 05/25/20 14:21 Pain Level: 4 Context: See RME note Associated Symptoms: None Exacerbated by: Movement Relieved by: Remaining still Similar symptoms previously: No Recently seen / treated by doctor: Yes - PCP earlier today - ROS Systems Reviewed and Negative: Yes All other systems reviewed and negative - EENT EENT: DENIES: Sore Throat, Ear Pain, Congestion - NEURO Neurology: REPORTS: Headache, Dizzinesss / Vertigo - RESPIRATORY Respiratory: DENIES: Trouble Breathing - REPRODUCTIVE Reproductive: DENIES: : - MUSCULOSKELETAL Musculoskeletal: REPORTS: Neck Pain - DERM Skin Color: Other - Ecchymosis Past Medical History - General Information source: Patient - Social History Smoking Status: Never Smoker Chew tobacco use (# tins/day): No Frequency of alcohol use: None Drug Abuse: None Family History: Arthritis, CAD, CVA, DM, Hyperlipidemia, Hypertension, Malignancy, Thyroid Disfunction Patient has homicidal ideation: No - Past Medical History Cardiac Medical History: Reports: Hx Hypercholesterolemia, Hx Hypertension Denies: Hx Coronary Artery Disease, Hx Heart Attack Pulmonary Medical History: Denies: Hx Asthma, Hx Bronchitis, Hx COPD, Hx Pneumonia Neurological Medical History: Reports: Hx Seizures - vgs Endocrine Medical History: Reports: Hx Diabetes Mellitus Type 2 Renal/ Medical History: Denies: Hx Peritoneal Dialysis GI Medical History: Reports: Hx Gastroesophageal Reflux Disease Musculoskeletal Medical History: Reports Hx Arthritis Psychiatric Medical History: Reports: Hx Anxiety, Hx Attention Deficit Hyperactivity Disorder, Hx Depression Past Surgical History: Reports: Hx Abdominal Surgery - HERNIA, Hx Section, Hx Cholecystectomy, Hx Inguinal Hernia, Hx Neurologic Surgery - Vagal nerve stimulator, Hx Tubal Ligation, Other - Vagal nerve stimulator implant for seizure disorder - Immunizations Immunizations up to date: No Hx Diphtheria, Pertussis, Tetanus Vaccination: No Vertical Provider Document - CONSTITUTIONAL Agree With Documented VS: Yes Exam Limitations: No Limitations - INFECTION CONTROL TRAVEL OUTSIDE OF THE [place] IN LAST 30 DAYS: No - HEENT HEENT: Normocephalic, PERRLA. negative: Tympanic Membrane Red, Tympanic Membrane Bulging Notes: No boggs signs, no raccoon eyes, ecchymosis noted to the left lower jawline that is tender to palpation. Teeth intact. Hematoma with tenderness to the left scalp area. Tenderness when opening and closing her mouth in the temporal region. No obvious deformities were noted. - NECK Neck: Supple, Thyroid Normal Notes: Nontender to palpation over the cervical spine but there is pain with lateral movement of the neck. No obvious deformities noted. No step-offs. - RESPIRATORY Respiratory: Breath Sounds Normal, No Respiratory Distress, Chest Non-Tender - CARDIOVASCULAR Cardiovascular: Regular Rate Course - Re-evaluation Re-evalutation: 05/25/2020 14:30 Presentation of head trauma in an otherwise well-appearing patient. No focal neurologic deficits on exam, no evidence of basilar skull fracture on exam without evidence of hemotympanum, raccoon eyes, or periauricular hematoma. No papilledema. Patient does complain of persistent dizziness with a headache and visual changes to the left eye. Patient is not on anticoagulation. GCS is 15. No loss of consciousness. No episodes of vomiting. Patient is therefore positive via [place] head CT criteria and CT imaging will be obtained at this time. 05/25/20 16:16 Patient is resting comfortably with decreased pain, nausea has resolved. Minimal dizziness noted. All CAT scan results were reviewed with the patient. She was given head injury instructions. She was already given a note from work from her primary care physician whom she will follow-up with on Thursday. Recommend notifying her employer of her injuries patient was given strict return to the emergency room guidelines. Return for any new or worsening symptoms. All questions were answered. Patient verbalized understanding and agrees with plan of care. 05/25/20 22:10 05/25/20 22:10 - Diagnostic Test Radiology reviewed: Reports reviewed Discharge - Discharge Clinical Impression: Head injury Qualifiers: Encounter type: initial encounter Qualified Code(s): S09.90XA - Unspecified injury of head, initial encounter Concussion Qualifiers: Encounter type: initial encounter Loss of consciousness presence/duration: without LOC Qualified Code(s): S06.0X0A - Concussion without loss of consciousness, initial encounter Condition: Stable Disposition: HOME, SELF-CARE Instructions: Head Injury Precautions ([facility]), Post-Concussion Syndrome ([facility]) Additional Instructions: You have likely sustained a concussion. If you had a CT scan done, it did not show any evidence of serious injury or bleeding. Symptoms to expect from a concussion include nausea, mild to moderate headache, difficulty concentrating or sleeping, and mild lightheadedness. These symptoms should improve over the next few days to weeks. Return to the emergency department or follow-up with your primary care doctor if your symptoms are not improving over this time. Signs of a more serious head injury include vomiting, severe headache, excessive sleepiness or confusion, and weakness or numbness in your face, arms or legs. Return immediately to the Emergency Department if you experience any of these more concerning symptoms. Rest, avoid strenuous physical or mental activity, and avoid activities that could potentially result in another head injury until all your symptoms from this head injury are completely resolved for at least 2-3 weeks. If you participate in sports, get cleared by your doctor or assistive technology trainer before returning to play. You may take ibuprofen or acetaminophen over the counter according to label instructions for mild headache or scalp soreness. Referrals: YURI ALVARADO MD [NO LOCAL MD] - Follow up as needed [facility] [Provider Group] - Follow up as needed
[2020-05-25 16:50] VITALS: BP 160/91
== END 2020-05-25 16:23 | disposition home or self-care (01) ==
LOC: ER 14:04
DX: S06.0X0A Concussion without loss of consciousness, initial encounter (principal); R42 Dizziness and giddiness; M54.2 Cervicalgia; R11.0 Nausea; W22.09XA Striking against other stationary object, initial encounter; Y99.0 Civilian activity done for income or pay; E78.00 Pure hypercholesterolemia, unspecified; I10 Essential (primary) hypertension; E11.9 Type 2 diabetes mellitus without complications; Z90.49 Acquired absence of other specified parts of digestive tract
CPT/HCPCS: 99283; 70450; 70486; 72125; S0119

== ENCOUNTER 2020-08-20 13:19 | Emergency (ER) | payer OTHER ==
[2020-08-20] MEDS ORDERED: ACETAMINOPHEN 325 MG TABLET PO ONE (14:44)
--- NOTE | 2020-08-20 15:37 | RADIOLOGY REPORT (SQ) ---
EXAM DESCRIPTION: T SPINE AP/LAT IMAGES COMPLETED DATE/TIME: 08/20/2020 3:22 pm REASON FOR STUDY: pain COMPARISON: 01/26/2020 chest x-ray NUMBER OF VIEWS: Two views. TECHNIQUE: AP and lateral radiographic images acquired of the thoracic spine. LIMITATIONS: None. FINDINGS: MINERALIZATION: Normal. ALIGNMENT: Normal. No scoliosis. VERTEBRAE: No acute fracture identified. Similar mild compression deformities in the lower thoracic spine, unchanged compared with January 2020. . DISCS: Multilevel disc space narrowing with osteophytes. HARDWARE: None in the spine. MEDIASTINUM AND SOFT TISSUES: Normal heart size and aortic contour. No soft tissue abnormality. VISUALIZED LUNG MONROY: Clear. OTHER: No other significant finding. IMPRESSION: No acute fracture identified. Similar mild compression deformities in the lower thoraci c spine, unchanged compared with January 2020. TECHNICAL DOCUMENTATION: JOB ID: [id number] [place]-72 2010 [employer]- All Rights Reserved Reading location - IP/workstation name: [employer]
--- NOTE | 2020-08-20 15:39 | RADIOLOGY REPORT (SQ) ---
EXAM DESCRIPTION: CERV SP 4 OR 5 VIEWS IMAGES COMPLETED DATE/TIME: 08/20/2020 3:22 pm REASON FOR STUDY: pain COMPARISON: 09/30/2010 NUMBER OF VIEWS: Five views including obliques. TECHNIQUE: AP, lateral, obliques and odontoid radiographic images acquired of the cervical spine. LIMITATIONS: None. FINDINGS: MINERALIZATION: Normal. ALIGNMENT: Normal. VERTEBRAE: Maintained height. No fracture or worrisome bone lesion. DISCS: Multilevel disc space narrowing with osteophytes. POSTERIOR ELEMENTS: Pedicles and facets are intact. No posterior arch defects. Facet arthropathy is present. FORAMINA: Moderately Narrowed at the C5-6 and C6-7 levels of maximal disc and facet disease. HARDWARE: None in the spine. PARASPINAL SOFT TISSUES: Normal. OTHER: No other significant finding. IMPRESSION: SPONDYLOSIS WITHOUT BONE LESION OR FRACTURE. TECHNICAL DOCUMENTATION: JOB ID: [id number] [place]-72 2010 [employer]- All Rights Reserved Reading location - IP/workstation name: [employer]
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
[2020-08-20 16:30] VITALS: BP 132/56
== END 2020-08-20 16:39 | disposition home or self-care (01) ==
LOC: ER 13:19
DX: S29.012A Strain of muscle and tendon of back wall of thorax, initial encounter (principal); S16.1XXA Strain of muscle, fascia and tendon at neck level, initial encounter; V49.9XXA Car occupant (driver) (passenger) injured in unspecified traffic accident, initial encounter; M47.812 Spondylosis without myelopathy or radiculopathy, cervical region; M62.838 Other muscle spasm; I10 Essential (primary) hypertension; E11.9 Type 2 diabetes mellitus without complications
CPT/HCPCS: 72050; 72070; 99283

== ENCOUNTER 2020-09-07 07:41 | Emergency (ER) | payer OTHER ==
[2020-09-07 07:56] VITALS: BP 147/86
[2020-09-07] MEDS ORDERED: ACETAMINOPHEN 325 MG TABLET PO ONE (08:30)
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
== END 2020-09-07 09:59 | disposition home or self-care (01) ==
LOC: ER 07:41
DX: R10.13 Epigastric pain (principal); V89.2XXA Person injured in unspecified motor-vehicle accident, traffic, initial encounter; E78.00 Pure hypercholesterolemia, unspecified; I10 Essential (primary) hypertension; E11.9 Type 2 diabetes mellitus without complications; Z90.49 Acquired absence of other specified parts of digestive tract
CPT/HCPCS: 99282

== ENCOUNTER 2020-11-18 19:44 | Emergency (ER) | payer OTHER ==
--- NOTE | 2020-11-18 21:10 | ER Document Report ---
ED General - General Chief Complaint: Chest Pain Stated Complaint: SHORTNESS OF BREATH/CHEST PAIN Time Seen by Provider: 11/18/20 20:59 Primary Care Provider: CASSI SHAFFER PA-C [Primary Care Provider] - 11/22/20 Mode of Arrival: Ambulatory Information source: Patient Notes: 60-year-old male presented to ED for complaint of chest pressure since 7 PM. He states it is 3 out of 5 and it comes and goes. She states she had a 2 weeks ago when she saw her primary care doctor they told her the next time she had at the place coming to the emergency room. She does have a history of reflux anxiety depression high blood pressure diabetes type 2 seizures. She does have panic attacks as well. She does have a vagal nerve stimulator has had a bilateral tab location inguinal hernia and a . Constitutional: Negative for fever. HENT: Negative for sore throat. Eyes: Negative for visual changes. Cardiovascular: Complains of upper chest pain pressure she had it about 2 weeks ago and it went away at this time it is coming and going when it is here it is like a 3. It is just a pressure. She states she does have a history of anxiety depression and reflux. States she does not have any cough congestion or any other signs Respiratory: Negative for shortness of breath. Gastrointestinal: Negative for abdominal pain, vomiting or diarrhea. Genitourinary: Negative for dysuria. Musculoskeletal: Negative for back pain. Skin: Negative for rash. Neurological: Negative for headaches, weakness or numbness. 10 point ROS negative except as marked above and in HPI. VITAL SIGNS: Within normal limits. GENERAL: No acute distress, non-toxic appearance. HEAD: Normal with no signs of head trauma. EYES: PERRLA, EOMI, conjunctiva normal, no discharge. EARS: Hearing grossly intact. NOSE: Normal. THROAT: Oropharynx is normal. NECK: Normal range of motion, no tenderness, supple, no lymphadenopathy, No adenopathy, no JVD. CHEST: Clear breath sounds bilaterally. No wheezes, rales, or rhonchi. CARDIAC: Regular rate and rhythm. S1 and S2, without murmurs, gallops, or rubs. VASCULAR: No Edema. Peripheral pulses normal and equal in all extremities. ABDOMEN: Normal and soft with no tenderness, no masses or pulsatile masses. GASTROINTESTINAL: Bowel sounds normal GENITOURINARY: Normal, No tenderness LYMPATHTIC: No lymphadenopathy noted. MUSCULOSKELETAL: Good range of motion of all major joints. Extremities without clubbing, cyanosis or edema. NEUROLOGICAL: Alert and oriented x 3. No focal sensory or strength deficits. Speech normal. Follows commands appropriately. PSYCHIATRIC: Normal Affect, judgement and mood. SKIN: Normal appearance with no rashes or lesions. TRAVEL OUTSIDE OF THE [place] IN LAST 30 DAYS: No - HPI Onset: Other - She has had similar episodes a couple weeks ago. This started this evening and is comes and goes she states she has had no pain since about 1130 12:00 Onset/Duration: Intermittent Quality of pain: Pressure Severity: Moderate Pain Level: Denies Associated symptoms: Chest pain Exacerbated by: Denies Relieved by: Denies Similar symptoms previously: Yes Recently seen / treated by doctor: Yes - Related Data Allergies/Adverse Reactions: Penicillins Allergy (Severe, Verified 08/14/19 08:30) Anaphylactic shock sulfamethoxazole [From Septra] Allergy (Severe, Verified 08/14/19 08:30) Diarrhea trimethoprim [From Septra] Allergy (Severe, Verified 08/14/19 08:30) Diarrhea doxycycline [Doxycycline] Allergy (Intermediate, Verified 08/14/19 08:30) Generalized Itching levofloxacin [From Levaquin] Allergy (Intermediate, Verified 08/14/19 08:30) N&V coconut Allergy (Verified 08/14/19 08:30) Past Medical History - General Information source: Patient - Social History Smoking Status: Never Smoker Frequency of alcohol use: None Drug Abuse: None Lives with: Family Family History: Arthritis, CAD, CVA, DM, Hyperlipidemia, Hypertension, Malignancy, Thyroid Disfunction Patient has suicidal ideation: No Patient has homicidal ideation: No - Past Medical History Cardiac Medical History: Reports: Hx Hypertension Pulmonary Medical History: Reports: None Neurological Medical History: Reports: Hx Seizures - vgs Endocrine Medical History: Reports: Hx Diabetes Mellitus Type 2 Renal/ Medical History: Reports: None Malignancy Medical History: Reports: None GI Medical History: Reports: Hx Gastroesophageal Reflux Disease Musculoskeletal Medical History: Reports Hx Arthritis Skin Medical History: Reports None Psychiatric Medical History: Reports: Hx Anxiety, Hx Attention Deficit Hyperactivity Disorder, Hx Depression, Other - Neck attacks Traumatic Medical History: Reports: None Infectious Medical History: Reports: None Past Surgical History: Reports: Hx Section, Hx Cholecystectomy, Hx Inguinal Hernia, Hx Tubal Ligation, Other - Vagal nerve stimulator implant for seizure disorder - Immunizations Immunizations up to date: No Hx Diphtheria, Pertussis, Tetanus Vaccination: No Physical Exam - Vital signs Vitals: Temp Pulse Resp BP Pulse Ox 98.2 F 87 16 145/89 H 95 11/18/20 20:52 11/18/20 20:52 11/18/20 20:52 11/18/20 20:52 11/18/20 20:52 Course - Re-evaluation Re-evalutation: 11/19/20 04:59 Discussed labs and x-ray and EKG with Dr. Braga and with patient. Patient does have a heart score of 3. She does have follow-up with her primary care doctor on who is landing her up with a wealth management advisor. She states she has had no pain at all since about 1130. She states it was not severe sharp or radiating pain when she did have it was more like a pressure. Has had 2 - troponins. Chest x-ray was negative. Patient states she is definitely following up with the primary care on as scheduled and that they do h ave cardiology follow-up in the progress. - Vital Signs Vital signs: Temp Pulse Resp BP Pulse Ox 98.3 F 76 20 153/73 H 98 11/19/20 05:14 11/19/20 05:14 11/19/20 05:14 11/19/20 05:14 11/19/20 05:14 - Laboratory Results Result Diagrams: 11/18/20 21:44 11/18/20 21:44 Laboratory Results Interpreted: 11/18/20 11/18/20 11/18/20 20:27 21:44 21:44 RDW 14.2 H Sodium 134.8 L Potassium 3.5 L Chloride 97 L Glucose 120 H Ur Leukocyte Esterase TRACE H Critical Laboratory Results Reviewed: No Critical Results - Radiology Results Critical Radiology Results Reviewed: No Critical Results Discharge - Discharge Clinical Impression: Chest pain Qualifiers: Chest pain type: unspecified Qualified Code(s): R07.9 - Chest pain, unspecified Condition: Stable Disposition: HOME, SELF-CARE Additional Instructions: CHEST PAIN OF UNCLEAR CAUSE: The exact cause of your chest pain isn't clear. Fortunately, there is no evidence of a dangerous medical condition. Further testing may be required to find the source of the pain. Most often, we find that this pain is coming from the chest wall -- the muscles or rib joints in the chest. But chest pain can come from the lung and lung lining, the esophagus, the heart valves or heart lining, and even the stomach or gallbladder. Rest. Eat lightly until the pain is gone. We may prescribe medicine for pain and inflammation. You should call the physician immediately if the pain radiates to the shoulder, jaw or arms; if you start to run a fever or develop a cough; or if you develop shortness of breath, or other new or alarming symptoms. ASPIRIN: Aspirin has been shown to have a beneficial effect on blood circulation by reducing the clotting effect of platelets in the blood. These beneficial effects can be achieved by taking just a single baby (81 mg) aspirin a day. It is recommended that any person over the age of forty take a single baby aspirin every day for heart and brain circulation, unless you are allergic to aspirin or have some significant bleeding disorder. It is strongly recommended that people who have proven cardiac or blood circulation disturbances should take a baby aspirin every day. We have given you a copy of your labs x-ray and EKG report please take these with you to your primary care appointment on . You will need these for you follow-up with your wealth management advisor as well. Take all medications as prescribed by your primary care doctor and call her in the morning to let her know that you were here and you had the lab work to follow-up. FOLLOW-UP CARE: If you have been referred to a physician for follow-up care, call the physicians office for an appointment as you were instructed or within the next two days. If you experience worsening or a significant change in your symptoms, notify the physician immediately or return to the Emergency Department at any time for re-evaluation. Forms: Elevated Blood Pressure Referrals: CASSI SHAFFER PA-C [Primary Care Provider] - 11/22/20
--- NOTE | 2020-11-18 21:20 | EKG REPORT ---
SEVERITY:- ABNORMAL ECG - SINUS RHYTHM BORDERLINE R WAVE PROGRESSION, ANTERIOR LEADS LVH WITH REPOLARIZATION : Confirmed by: José Antonio Mckeon MD 18-Nov-2020 21:19:54
[2020-11-18 22:00] LABS: ABSOLUTE BASOPHILS # (AUTO) 0.1 10^3/uL (0.0-0.2); ABSOLUTE EOSINOPHILS # (AUTO) 0.2 10^3/uL (0.0-0.6); ABSOLUTE MONOCYTES (AUTO) 0.8 10^3/uL (0.1-1.4); ABSOLUTE NEUT (AUTO) 6.1 10^3/uL (1.7-8.2); BASOPHILS % (AUTO) 0.7 % (0-2); EOSINOPHILS % (AUTO) 2.2 % (0-6); HEMATOCRIT 37.7 % (36.0-47.0); HEMOGLOBIN 13.2 g/dL (12.0-15.5); LYMPHOCYTES % (AUTO) 29.8 % (13-45); MEAN CORPUSCULAR HEMOGLOBIN 30.2 pg (27.0-33.4); MEAN CORPUSCULAR VOLUME 86 fl (80-97); MONOCYTES % (AUTO) 7.7 % (3-13); PLATELET COUNT 424 10^3/uL (150-450); RED BLOOD COUNT 4.38 10^6/uL (3.72-5.28); RED CELL DISTRIBUTION WIDTH 14.2 % (11.5-14.0); SEGMENTED NEUTROPHILS % (AUTO) 59.6 % (42-78); TOTAL CELLS COUNTED % (AUTO) 100 %; WHITE BLOOD COUNT 10.2 10^3/uL (4.0-10.5)
[2020-11-18 22:20] LABS: ALBUMIN 4.6 g/dL (3.5-5.0); ALKALINE PHOSPHATASE 63 U/L (38-126); ANION GAP 10 (5-19); ASPARTATE AMINO TRANSFERASE 29 U/L (14-36); BILIRUBIN,DIRECT 0.2 mg/dL (0.0-0.4); BILIRUBIN,TOTAL 0.5 mg/dL (0.2-1.3); BLOOD UREA NITROGEN 8 mg/dL (7-20); CARBON DIOXIDE 28 mmol/L (22-30); CHLORIDE 97 mmol/L (98-107); GLUCOSE 120 mg/dL (75-110); POTASSIUM 3.5 mmol/L (3.6-5.0); TOTAL PROTEIN 7.9 g/dL (6.3-8.2)
[2020-11-18 22:52] LABS: APPEARANCE,URINE CLEAR; BILIRUBIN,URINE NEGATIVE (NEGATIVE); COLOR,URINE COLORLESS; GLUCOSE, URINE NEGATIVE (NEGATIVE); KETONES,URINE NEGATIVE (NEGATIVE); LEUKOCYTE ESTERASE,URINE TRACE (NEGATIVE); NITRITE,URINE NEGATIVE (NEGATIVE); PROTEIN,URINE NEGATIVE (NEGATIVE); URINE SPECIFIC GRAVITY 1.004; UROBILINOGEN,URINE NEGATIVE mg/dL (<2.0)
--- NOTE | 2020-11-18 23:29 | RADIOLOGY REPORT (SQ) ---
CHEST X-RAY 2 view on 11/18/2020 at 11:01 PM CLINICAL INDICATION: Chest pain COMPARISON: 01/26/2020 FINDINGS: Stimulator device is noted in the left anterior chest wall with its lead extending up in the left neck, most likely this represents a vagal nerve stimulator but please correlate clinically. The lungs are clear. Cardiac, hilar and mediastinal contours are within normal limits. Pulmonary vascularity is within normal limits. IMPRESSION: No significant change and no acute disease.
[2020-11-19 05:09] VITALS: BP 153/73
== END 2020-11-19 05:14 | disposition home or self-care (01) ==
LOC: ER 19:44
DX: R07.9 Chest pain, unspecified (principal); R06.02 Shortness of breath; I10 Essential (primary) hypertension; E11.9 Type 2 diabetes mellitus without complications; Z88.0 Allergy status to penicillin; Z90.49 Acquired absence of other specified parts of digestive tract
CPT/HCPCS: 36415; 71046; 80053; 81001; 84443; 84484; 85025; 93005; 93010; 99285